=== PATIENT | male | born 1955 | race Caucasian/White ===

== ENCOUNTER 2016-12-14 06:05 | Inpatient (IN) | payer BC ==
[2016-11-16 11:34] VITALS: BMI 40.0
--- NOTE | 2016-11-16 12:20 | PAT Medication Instructions ---
Service Date Nov 16, 2016. Current Home Medication List Folic Acid (Folvite), 1 MG PO QAM Hydrocodone/Acetaminophen 10MG/325MG ([place] 10MG/325MG), 1 TAB PO TID PRN for Pain Methotrexate Sodium (Methotrexate), 8 TAB PO WK Olmesartan Medoxomil (Olmesartan Medoxomil), 1 TAB PO QAM Omeprazole (Omeprazole), 2 TAB PO QAM Prednisone (Prednisone), 5 MG PO TID Sitagliptin-Metformin Hcl (Janumet), 1 TAB PO BID Tramadol (Ultram), 1 TAB PO TID Medication Instructions For Your Scheduled Surgery - Hold the following medications 7 days prior to surgery: Methotrexate Sodium (Methotrexate), 8 TAB PO WK (please check with prescribing physician before stopping) - Hold the following medications 48 hours prior to surgery: Sitagliptin-Metformin Hcl (Janumet), 1 TAB PO BID - Hold the following medications the morning of surgery: Folic Acid (Folvite), 1 MG PO QAM Olmesartan Medoxomil (Olmesartan Medoxomil), 1 TAB PO QAM - Take the following medications the morning of surgery with a sip of water: Hydrocodone/Acetaminophen 10MG/325MG ([place] 10MG/325MG), 1 TAB PO TID PRN for Pain (if needed, up to 4 hours prior to surgery) Tramadol (Ultram), 1 TAB PO TID (if needed, up to 4 hours prior to surgery) Prednisone (Prednisone), 5 MG PO TID Omeprazole (Omeprazole), 2 TAB PO QAM - Take the following medications as scheduled the night before surgery: Prednisone (Prednisone), 5 MG PO TID Tramadol (Ultram), 1 TAB PO TID Hydrocodone/Acetaminophen 10MG/325MG ([place] 10MG/325MG), 1 TAB PO TID PRN for Pain *OTHERWISE NOTHING TO EAT OR DRINK AFTER MIDNIGHT* If you have any questions please call us at [phone] or [phone] or [phone]
--- NOTE | 2016-11-16 13:36 | DIAGNOSTIC IMAGING REPORT ---
CHEST 2 VIEWS ROUTINE CLINICAL HISTORY: Preoperative chest COMPARISON STUDY: No previous studies for comparison. FINDINGS: The cardiac and mediastinal contours are normal. There is no evidence of focal pulmonary consolidation. There is no evidence of failure. No pleural effusions are visualized.[ IMPRESSION: No active disease in the chest. Electronically signed by: Aditya Malone M.D. 11/16/2016 1:35 PM Dictated Date/Time: 11/16/2016 1:35 PM
--- NOTE | 2016-11-16 13:37 | DIAGNOSTIC IMAGING REPORT ---
CERVICAL SPINE 2 OR 3 VIEWS CLINICAL HISTORY: 61 years-old Male presenting with RA; lateral-neutral, flexion, extension. TECHNIQUE: Lateral views of the cervical spine in neutral, flexion, and extension positioning were obtained. COMPARISON: None. FINDINGS: On neutral positioning, normal cervical lordosis. Vertebral body heights are essentially preserved, although intervertebral disc space loss secondary to degenerative changes noted in the lower cervical region. Disc osteophyte complexes noted at nearly every level. No prevertebral soft tissue swelling. On flexion, normal straightening with slight reversal of lordosis in the lower cervical region. No increase in the predental interval. On extension positioning, no significant change in lordosis from flexion, suggesting rigidity. No subluxation. IMPRESSION: Multilevel degenerative changes without evidence of subluxation on flexion and extension positioning. Electronically signed by: Aravind Ruiz M.D. 11/16/2016 1:36 PM Dictated Date/Time: 11/16/2016 1:34 PM
[2016-11-16 13:47] LABS: BASO % 0.9 %; BASO ABS # 0.11 K/uL (0-0.2); COMPLETE YES; HEMATOCRIT 43.4 % (42-52); IG% 0.4 %; LYMPH % 9.6 %; LYMPH ABS # 1.18 K/uL (1.2-3.4); MEAN CELL VOLUME 97.7 fL (80-100); MEAN CORPUSCULAR HEMOGLOBIN 32.7 pg (25-34); MEAN CORPUSCULAR HGB CONC 33.4 g/dl (32-36); MEAN PLATELET VOLUME 10.5 fL (7.4-10.4); MONO % 5.1 %; PLATELET COUNT 180 K/uL (130-400); RED BLOOD COUNT 4.44 M/uL (4.7-6.1); WHITE BLOOD COUNT 12.23 K/uL (4.8-10.8)
[2016-11-16 13:48] LABS: URINE APPEARANCE CLEAR (CLEAR); URINE BILIRUBIN NEG (NEG); URINE COLOR YELLOW; URINE NITRITE NEG (NEG); URINE SPECIFIC GRAVITY 1.017 (1.000-1.030); UROBILINOGEN NEG (NEG)
[2016-11-16 13:49] LABS: MANUAL MICROSCOPIC REQUIRED? NO; REVIEW REQ? NO
[2016-11-16 13:59] LABS: PARTIAL THROMBOPLASTIN RATIO 0.9; PROTHROMBIN TIME (PATIENT) 10.7 SECONDS (9.0-12.0)
[2016-11-16 14:02] LABS: CALCIUM 9.3 mg/dl (8.5-10.1); CREATININE 0.92 mg/dl (0.60-1.40); POTASSIUM 4.4 mmol/L (3.5-5.1)
[2016-11-16 14:04] LABS: ALB/GLOB RATIO 1.3 (0.9-2)
[2016-11-16 14:22] LABS: ESTIMATED AVERAGE GLUCOSE 220 mg/dl; HA1C FLAG Normal (Normal)
--- NOTE | 2016-12-10 18:22 | History and Physical ---
History & Physical Date Dec 10, 2016. Chief Complaint left knee pain History of Present Illness The patient is a 61 year old male with complaints of left knee pain for about a year. Pt has had injections and PT with no relief and ready for left tka. Additional History Hepatic Disease: No Endocrine Disorder: No Kidney Disease: No Hypertension: No Heart Disease: No Bleeding Tendencies: No Infectious Diseases: No Allergies Coded Allergies: No Known Allergies (Unverified , 11/16/16) Home Medications Scheduled Folic Acid (Folvite), 1 MG PO QAM Methotrexate Sodium (Methotrexate), 8 TAB PO WK Olmesartan Medoxomil (Olmesartan Medoxomil), 1 TAB PO QAM Omeprazole (Omeprazole), 2 TAB PO QAM Prednisone (Prednisone), 5 MG PO TID Sitagliptin-Metformin Hcl (Janumet), 1 TAB PO BID Tramadol (Ultram), 1 TAB PO TID Scheduled PRN Hydrocodone/Acetaminophen 10MG/325MG ([place] 10MG/325MG), 1 TAB PO TID PRN for Pain Physical Examination Skin: warm/dry, no rash Eyes: normal inspection, EOMI, sclerae normal ENT: normal ENT inspection, pharynx normal Head: normocephalic, atraumatic Neck: supple, no adenopathy, trachea midline Respiratory/Chest: lungs clear, normal breath sounds, no respiratory distress Cardiovascular: regular rate, rhythm, no edema, no murmur Abdomen / GI: normal bowel sounds, non tender Back: normal inspection Extremities: normal inspection, normal range of motion, + pertinent finding ( left knee has painful rom and tender along medial joint line. rom poor. ) Neurologic/Psych: no motor/sensory deficits, alert, normal reflexes, oriented x 3 Diagnosis DJD LEFT KNEE Plan of Treatment PLAN IS ADMIT AND UNDERGO LEFT TKA, THEN HOME PT AND ASA FOR DVT PROPHYLAXIS.
[2016-12-11 10:48] VITALS: BMI 40.0
[~2016-12-14] VITALS: Ht 185.4 cm; Wt 137.3 kg
[2016-12-14] VITALS (7 sets, daily range): BP systolic 104–172; BP diastolic 64–97; PULSE 84–90; TEMP 36.4–36.8; O2SAT 94–97; Ht 185.4 cm; Wt 137.3 kg
[~2016-12-14 06:05] MED LIST: ACETAMINOPHEN 500 MG TAB PO SCH; CEFAZOLIN 3000 MG/65 ML D5W 65 ML IV SCH; CeleBREX 200 MG CAP PO SCH; DEXAMETHASONE 4 MG TAB PO SCH; FAMOTIDINE 20 MG TAB PO SCH; FOLI1TAB7 PO; HYDR-4079 PO; LACTATED RINGER'S 1000ML 1,000 ML IV SCH; LACTATED RINGER'S 500 ML IV SCH; METH2.5T PO; METOCLOPRAMIDE HCL 10 MG TAB PO SCH; OLME20TA26 PO; OMEP20TA PO; PRED-301 PO; ROPIVACAINE 5MG/ML 30 ML 150 MG, BUPIVACAINE/EPINEPHR 0.5% MPF 30 ML, KETOROLAC TROMETH... INFIL SCH; SITA50TA5 PO; TRAM-10 PO
[2016-12-14] MEDS: TRANEXAMIC ACID INJ 1,000 MG in SODIUM CHLORIDE 0.9% 100ML 100 ML IV SCH ×2 (06:30→09:00)
[2016-12-14] MEDS ORDERED: BUPIVACAINE 0.5 % 5 MG/1 ML PF 10ML VIAL ONE (06:33)
[2016-12-14] MEDS ORDERED: BUPIVACAINE 0.25% 30 ML VIAL ONE (06:33)
[2016-12-14] MEDS ORDERED: EpINEphrine INJ 1MG/ML AMP 1 MG/ML AMP ONE (06:34)
[2016-12-14] MEDS ORDERED: FENTANYL CITRATE INJ 50 MCG/1 ML 2 ML VIAL IV PRN (08:15)
[2016-12-14] MEDS ORDERED: ONDANSETRON INJ 2 MG/ML 2 ML VIAL IV PRN ×2 (08:15→10:45)
[2016-12-14] MEDS ORDERED: PROMETHAZINE HCL INJ 6.25 MG in SODIUM CHLORIDE 0.9% 50ML 50 ML IV PRN (08:15)
[2016-12-14] MEDS ORDERED: EpHEDrine SULFATE INJ 50 MG/ML AMP IV PRN (08:15)
[2016-12-14] MEDS ORDERED: ATROPINE SULFATE 0.1 MG/ML 5ML SYR IV PRN (08:15)
--- NOTE | 2016-12-14 08:35 | History & Physical Bridge Note ---
H&P Re-Evaluation Bridge Note: I have examined the patient, reviewed the History & Physical and in the interval since the performance of the History & Physical I have noted the following changes of clinical significance: THE ONLY CHANGE ON THE H AND P WAS THAT THIS IS THE RIGHT KNEE, NOT THE LEFT KNEE. CONSENT IS FOR RIGHT TKA WHICH WE WENT OVER AGAIN, OTHEWISE, No changes noted
[2016-12-14] MEDS ORDERED: LIDOCAINE HCL 2% 2 ML VIAL (20MG/ML) ONE (08:44)
[2016-12-14] MEDS ORDERED: FENTANYL CITRATE INJ 50 MCG/1 ML 2 ML VIAL ONE (08:44)
[2016-12-14] MEDS ORDERED: MIDAZOLAM HCL 1 MG/ML 2ML VIAL ONE ×2 (08:44→09:31)
[2016-12-14] MEDS ORDERED: PROPOFOL IV EMULSION 10 MG/ML 20 ML VIAL IV ONE ×2 (08:44→09:22)
[2016-12-14] MEDS ORDERED: POVIDONE-IODINE OP SOLN 30 ML BTL ONE (08:59)
[2016-12-14] MEDS ORDERED: BACITRACIN 50000 UNIT VIAL ONE (08:59)
[2016-12-14] MEDS ORDERED: ORTHO JOINT ANESTHETIC ONE (08:59)
[2016-12-14] MEDS ORDERED: KETAMINE HCL INJ 50 MG/ML 10 ML VIAL ONE (09:30)
[2016-12-14] MEDS ORDERED: SODIUM CHLORIDE 0.9% INJ 10 ML VIAL ONE (09:40)
[2016-12-14] MEDS ORDERED: BISACODYL 10 MG SUPP PR PRN (10:45)
[2016-12-14] MEDS ORDERED: SOD PHOSPHATE/SOD BIPHOSPHATE ENEMA 132 ML BTL PR PRN (10:45)
[2016-12-14] MEDS ORDERED: ALUMINUM/MAGNESIUM/SIMETH (MAALOX MAX) 30 ML UDC PO PRN (10:45)
[2016-12-14] MEDS ORDERED: ZOLPIDEM TARTRATE 5 MG TAB PO PRN (10:45)
--- NOTE | 2016-12-14 10:50 | [facility] Operative Report ---
Operative Report Operative Date Dec 14, 2016. Pre-Operative Diagnosis Right knee degenerative joint disease. Post-Operative Diagnosis same as preoperative diagnosis Procedure(s) Performed Right total knee arthroplasty Surgeon Dr. De La Torre Rn Medication Surgeon(s) Mariam Neal PA-C Estimated Blood Loss 20ML Findings As above Specimens A. Right knee bone and tissue Complication(s) None Disposition Recovery Room / PACU Description of Procedure IMPLANTS USED: INDICATIONS: [Mr. Isaac Ruffin ] is a pleasant (male) who has unfortunately failed all forms of conservative measures. Therefore, they have decided to undergo elective surgical intervention. All risks and benefits of the surgery were discussed with the patient and the family in entirety. PROCEDURE: The patient was brought to the operating room and properly identified by myself, anesthesia, and staff. Patient was given a spinal anesthesia and placed on the operating table in the supine position. Tourniquets were applied to the right upper thigh. The leg was then prepped and draped in usual sterile fashion. We made a standard midline approach over the patella and dissected down through the subcutaneous tissue to identify the capsule and performed a medial capsulotomy with the patella everted and the knee flexed.The patient matched implant was then put onto the femur. The femur measured to be a size 8. This was then put into place. We made the appropriate cuts and then placed a retractor behind the proximal tibia to retract anteriorly. We then placed the patient matched knee implant on the tibia. It measured to be a size 8. A size 8 guide was then put in place. We used the tibial punch then put the trial components into place. We had very good range of motion, excellent stability, and excellent patella tracking. We removed the trial components and irrigated the wound. We impacted the components in place using antibiotic cement. All excess cement was removed. We then irrigated the wound once more. We closed the capsule with 0 PDS suture , deep dermis and 2-0 Vicryl, and finally the skin with julio. A sterile dressing was applied. The patient was taken to the recovery room in stable condition. Due to the complex nature of the procedure, the entire surgery was performed with the operational assistance of [monica BABCOCK)]. The offset press assistant was under direct supervision, was involved in the actual performance of all aspects of the surgical procedure including hemostasis, tissue retraction and incision, instrument management, patient positioning, and wound closure. I attest to the content of the Intraoperative Record and any orders documented therein. Any exceptions are noted below.
--- NOTE | 2016-12-14 11:49 | Anesthesiology Progress Note ---
Anesthesia Post Op Note Date & Time Dec 14, 2016 at 11:49 Vital Signs Pain Intensity: 0 Vital Signs Past 12 Hours Date Time Temp Pulse Resp B/P (MAP) Pulse Ox O2 Delivery O2 Flow Rate FiO2 12/14/16 11:37 80 17 95 12/14/16 11:37 82 17 12/14/16 11:36 117/65 12/14/16 11:32 84 15 96 12/14/16 11:32 84 15 12/14/16 11:31 105/64 12/14/16 11:30 90 20 96 12/14/16 11:30 88 20 12/14/16 11:26 106/66 12/14/16 11:25 86 15 96 12/14/16 11:25 85 15 12/14/16 11:21 89/59 12/14/16 11:20 88 19 12/14/16 11:20 88 19 96 12/14/16 11:16 107/58 12/14/16 11:15 36.2 89 16 107/58 (83) 98 Nasal Cannula 2 12/14/16 11:15 89 17 12/14/16 11:15 89 17 98 12/14/16 06:30 36.8 89 20 122/69 95 Room Air Notes Mental Status: alert / awake / arousable, participated in evaluation Pt Amnestic to Procedure: Yes Nausea / Vomiting: adequately controlled Pain: adequately controlled Airway Patency, RR, SpO2: stable & adequate BP & HR: stable & adequate Hydration State: stable & adequate Neuraxial Anesthesia: was administered, sensory block is resolving Anesthetic Complications: no major complications apparent
[2016-12-14] MEDS: SODIUM CHLORIDE 0.9% 1000ML 1,000 ML IV SCH ×2 (13:09→21:34)
[2016-12-14] MEDS ORDERED: GLUCOSE 40% GEL 15 GM TUBE PO PRN (13:30)
[2016-12-14] MEDS ORDERED: GLUCOSE 10 TABS/TUBE PO PRN (13:30)
[2016-12-14] MEDS ORDERED: GLUCAGON FOR INJ 1 MG VIAL SQ PRN (13:30)
[2016-12-14] MEDS ORDERED: DEXTROSE 50% 50 ML SYR IV PRN (13:30)
[2016-12-14] MEDS ORDERED: PANTOprazole SOD 40 MG TAB PO ONE (14:15)
[2016-12-14] MEDS: ACETAMINOPHEN 500 MG TAB PO SCH ×2 (14:42→22:24)
--- NOTE | 2016-12-14 14:48 | Medical Consult ---
Consultation Date of Consultation: Dec 14, 2016. Attending Physician: Frantz De La Torre DO Reason for Consultation: Medical Management History of Present Illness Mr. Ruffin is a 61 y/o male with PMHx of Rheumatoid Arthritis on Methotrexate, HTN, T2DM, and GERD who is S/P R TKA on 12/14. Patient reports his Methotrexate has been on hold for a week prior to procedure and follows only with PCP currently for management. Was previously managed by wastewater operator. He Past Medical/Surgical History 1. Rheumatoid Arthritis 2. HTN 3. T2DM 4. GERD Family History Diabetes mellitus Hypertension Social History Smoking Status: Current Some Day Smoker Smokeless Tobacco Use: No Alcohol Use: socially Drug Use: none Marital Status: Housing Status: lives with significant other Allergies Coded Allergies: No Known Allergies (Unverified , 12/14/16) Current Inpatient Medications Current Inpatient Medications Medications (Trade) Dose Ordered Sig/Gissell Route Start Time Stop Time Status Last Admin Dose Admin Cefazolin Sodium 65 ml @ 100 mls/hr PREOP IV 12/14/16 06:00 12/14/16 18:00 12/14/16 09:15 100 MLS/HR Acetaminophen (Tylenol Tab) 1,000 mg PREOP PO 12/14/16 06:00 12/14/16 18:00 12/14/16 07:09 1,000 MG Celecoxib (CeleBREX CAP) 200 mg PREOP PO 12/14/16 06:00 12/14/16 18:00 12/14/16 07:08 200 MG Dexamethasone (Decadron Tab) 8 mg PREOP PO 12/14/16 06:00 12/14/16 18:00 12/14/16 07:08 8 MG Famotidine (Pepcid Tab) 20 mg PREOP PO 12/14/16 06:00 12/14/16 18:00 12/14/16 07:08 20 MG Metoclopramide HCl (Reglan Tab) 10 mg PREOP PO 12/14/16 06:00 12/14/16 18:00 12/14/16 07:09 10 MG Tranexamic Acid 1000 mg/Sodium Chloride 110 ml @ 660 mls/hr TODAY@06,0630 IV 12/14/16 06:00 12/14/16 18:00 12/14/16 09:00 660 MLS/HR Sodium Chloride 1,000 ml @ 100 mls/hr Q10H IV 12/14/16 10:42 12/15/16 10:41 12/14/16 13:09 100 MLS/HR Oxycodone HCl (Roxicodone Immediate Rel Tab) 1 TABLET FOR PAIN RATING... Q4H PRN PO 12/14/16 10:45 12/28/16 10:44 Acetaminophen (Tylenol Tab) 1,000 mg Q8H PO 12/14/16 15:00 01/13/17 14:59 Magnesium Hydroxide (Milk Of Magnesia Susp) 30 ml Q6H PRN PO 12/14/16 10:45 01/13/17 10:44 Bisacodyl (Dulcolax Supp) 10 mg DAILY PRN MO 12/14/16 10:45 01/13/17 10:44 Sodium Biphosphate/ Sodium Phosphate (Fleet Enema) 132 ml DAILY PRN MO 12/14/16 10:45 01/13/17 10:44 Docusate Sodium (coLACE CAP) 100 mg BID PO 12/14/16 21:00 01/13/17 20:59 Diphenhydramine HCl (Benadryl Cap) 25 mg Q8H PRN PO 12/14/16 10:45 01/13/17 10:44 Al Hydrox/Mg Hydrox/Simethicone (Maalox Max Susp) 15 ml Q4H PRN PO 12/14/16 10:45 01/13/17 10:44 Zolpidem Tartrate (Ambien Tab) 5 mg HSZ PRN PO 12/14/16 10:45 01/13/17 10:44 Ondansetron HCl (Zofran Inj) 4 mg Q6H PRN IV 12/14/16 10:45 01/13/17 10:44 Tranexamic Acid 1000 mg/Sodium Chloride 110 ml @ 660 mls/hr Q6H IV 12/14/16 17:00 12/14/16 17:09 Dexamethasone Sodium Phosphate 10 mg/Syringe 2.5 ml @ 1 mls/min TODAY@0730 IV 12/15/16 07:30 12/15/16 07:33 Aspirin (Ecotrin Tab) 81 mg BID PO 12/14/16 21:00 01/13/17 20:59 Folic Acid (Folvite Tab) 1 mg QAM PO 12/15/16 09:00 01/14/17 08:59 Metformin HCl (Glucophage Tab) 1,000 mg BIDM PO 12/14/16 17:45 01/13/17 17:44 Cefazolin Sodium 2000 mg/Dextrose 60 ml @ 100 mls/hr Q8H IV 12/14/16 17:00 12/15/16 01:35 Insulin Aspart (novoLOG ASPART) SLIDING SCALE If C... ACHS SC 12/14/16 17:15 01/13/17 17:14 Glucose (Glucose 40% Gel) 15-30 GRAMS 15 GRAMS... UD PRN PO 12/14/16 13:30 01/13/17 13:29 Glucose (Glucose Chew Tab) 4-8 Tablets 4 Tabl... UD PRN PO 12/14/16 13:30 01/13/17 13:29 Dextrose (Dextrose 50% 50ML Syringe) 25-50ML OF 50% DW IV FOR... UD PRN IV 12/14/16 13:30 01/13/17 13:29 Glucagon (Glucagon Inj) 1 mg UD PRN SQ 12/14/16 13:30 01/13/17 13:29 Miscellaneous Information (Order Awaiting Action) 1 ea QS N/A 12/14/16 16:00 01/13/17 15:59 Review of Systems Constitutional: No fever, No chills ENT: No nasal symptoms, No sore throat, No trouble swallowing Respiratory: No cough, No sputum, No shortness of breath Cardiovascular: No chest pain, No palpitations Abdomen: No pain, No nausea, No vomiting, No diarrhea, No constipation Musculoskeletal: No swelling, No calf pain Genitourinary - Male: No dysuria Hematologic / Lymphatic: No abnormal bleeding/bruising Integumentary: No rash Physical Exam Date Time Temp Pulse Resp B/P (MAP) Pulse Ox O2 Delivery O2 Flow Rate FiO2 12/14/16 14:15 36.5 89 18 172/97 (122) 97 Room Air 12/14/16 13:33 36.7 85 20 120/75 (90) 94 Room Air 12/14/16 12:45 36.7 84 20 137/87 (104) 97 Nasal Cannula 2.0 12/14/16 12:15 Nasal Cannula 2.0 12/14/16 12:15 96 Nasal Cannula 2.0 12/14/16 12:15 36.6 88 16 113/74 (87) 96 Nasal Cannula 2.0 12/14/16 11:48 90 22 12/14/16 11:48 91 22 97 12/14/16 11:46 121/67 12/14/16 11:45 37.1 90 20 121/67 96 Nasal Cannula 2 12/14/16 11:43 81 18 12/14/16 11:43 82 18 95 12/14/16 11:41 103/68 12/14/16 11:38 86 15 12/14/16 11:38 87 15 95 12/14/16 11:37 80 17 95 12/14/16 11:37 82 17 12/14/16 11:36 117/65 12/14/16 11:32 84 15 96 12/14/16 11:32 84 15 12/14/16 11:31 105/64 12/14/16 11:30 90 20 96 12/14/16 11:30 88 20 12/14/16 11:26 106/66 12/14/16 11:25 86 15 96 12/14/16 11:25 85 15 12/14/16 11:21 89/59 12/14/16 11:20 88 19 12/14/16 11:20 88 19 96 12/14/16 11:16 107/58 12/14/16 11:15 36.2 89 16 107/58 (83) 98 Nasal Cannula 2 12/14/16 11:15 89 17 12/14/16 11:15 89 17 98 12/14/16 06:30 36.8 89 20 122/69 95 Room Air General Appearance: WD/WN, no apparent distress, + obese Head: normocephalic, atraumatic Eyes: sclerae normal ENT: hearing grossly normal Neck: supple, no JVD, trachea midline Respiratory/Chest: lungs clear, normal breath sounds, no respiratory distress, no accessory muscle use Cardiovascular: regular rate, rhythm, no gallop, no murmur Abdomen/GI: normal bowel sounds, non tender, soft Extremities/Musculoskelatal: no calf tenderness, no pedal edema, + pertinent finding (RLE with EMILI wrap C/D/I - immediate cap refill: dorsalis pedis 2+) Neurologic/Psych: alert, oriented x 3 Laboratory Results Last 24 Hours Test 12/14/16 06:23 12/14/16 06:38 12/14/16 11:59 Hepatitis C Antibody Screen NEG Bedside Glucose 142 mg/dl 188 mg/dl Assessment & Plan Mr. Ruffin is a 61 y/o male with PMHx of Rheumatoid Arthritis on Methotrexate, HTN, T2DM, and GERD who is S/P R TKA on 12/14. S/p R TKA on 12/14: - Pain management, IVF, PT/OT, DVT prophylaxis per primary - DVT prophylaxis - ASA 81 mg BID Rheumatoid Arthritis: - Continue to hold Methotrexate and Prednisone - Received steroids with procedure - can be resumed likely tomorrow - Monitor for signs of infection given immunocompromised status due to Methotrexate HTN: - Hold Olmesartan 20 mg daily until renal function assessed - Coverage with Hydralazine PRN T2DM: Uncontrolled - A1c 9.3 - Hold Janumet until renal function assessed in AM - Cover with SSI with carb coverage - Given chronic steroid use and A1c patient will need medication adjustment and can be deferred to PCP GERD: - Omeprazole 40 mg daily - non-formulary and patient may take his own Disposition: Per primary - Recommend PCP F/U for reinstitution of methotrexate and medication adjustment for T2DM in setting of A1c 9.3 and chronic steroid use .Attending Addendum: I have physically seen this patient, have directed the physician assistants medical activities, and agree with the H&P as noted above with the following exceptions as noted. Assessment and Plan: Status post right total knee arthroplasty on 12/14-- Seen postoperatively is medically stable. Hypertension-- Hold olmesartan as noted. Hydralazine 10 mg IV every 4 hours when necessary systolic blood pressure greater than 160. Ex Diabetes mellitus-- Hold Janumet. Accu-Cheks before meals and at bedtime with NovoLog coverage per scale. Ex GERD-- Patient will continue to take is on omeprazole 40 mg daily. Rheumatoid arthritis-- Methotrexate and prednisone on hold. Monitor for adrenal insufficiency and signs of infection.
[2016-12-14] MEDS ORDERED: HydrALAZINE HCL 20 MG/ML VIAL IV. PRN (15:00)
[2016-12-14] MEDS ORDERED: TRANEXAMIC ACID INJ 1,000 MG in SODIUM CHLORIDE 0.9% 100ML 100 ML IV SCH (17:00)
[2016-12-14] MEDS ORDERED: CEFAZOLIN IV 2 MG in DEXTROSE 5% 50ML 50 ML IV SCH (17:00)
[2016-12-14] MEDS: INSULIN ASPART 100 UNITS/ML 3 ML PEN SC SCH ×2 (17:15→20:14)
[2016-12-14] MEDS ORDERED: METFORMIN HCL 500 MG TAB PO SCH (17:45)
[2016-12-14] MEDS ORDERED: SITAGLIPTIN 25 MG TAB PO SCH (17:45)
[2016-12-14] MEDS: CEFAZOLIN IV 2,000 MG in DEXTROSE 5% 50ML 50 ML IV SCH (18:25)
[2016-12-14] MEDS: OXYCODONE HCL IR 5 MG TAB (IMMEDIATE RELEASE) PO PRN ×2 (19:17→23:39)
[2016-12-14] MEDS: ASPIRIN 81 MG ECTAB PO SCH (21:33)
[2016-12-14] MEDS: DOCUSATE SODIUM 100 MG CAP PO SCH (21:33)
[2016-12-15] MEDS: INSULIN ASPART 100 UNITS/ML 3 ML PEN SC SCH ×6 (00:30→21:00)
[2016-12-15] MEDS: CEFAZOLIN IV 2,000 MG in DEXTROSE 5% 50ML 50 ML IV SCH (01:17)
[2016-12-15 04:08] VITALS: BP 121/76; PULSE 80; TEMP 36.3; O2SAT 97
[2016-12-15] MEDS: OXYCODONE HCL IR 5 MG TAB (IMMEDIATE RELEASE) PO PRN ×5 (05:59→23:32)
[2016-12-15] MEDS: SODIUM CHLORIDE 0.9% 1000ML 1,000 ML IV SCH (05:59)
[2016-12-15 06:09] LABS: HEMATOCRIT 37.4 % (42-52); MEAN CELL VOLUME 98.2 fL (80-100); MEAN CORPUSCULAR HEMOGLOBIN 33.9 pg (25-34); MEAN CORPUSCULAR HGB CONC 34.5 g/dl (32-36); MEAN PLATELET VOLUME 10.1 fL (7.4-10.4); PLATELET COUNT 172 K/uL (130-400); RED BLOOD COUNT 3.81 M/uL (4.7-6.1); WHITE BLOOD COUNT 13.04 K/uL (4.8-10.8)
[2016-12-15] MEDS: ACETAMINOPHEN 500 MG TAB PO SCH ×3 (06:28→21:14)
[2016-12-15 06:40] LABS: BUN/CREATININE RATIO 18.3 (10-20); POTASSIUM 4.3 mmol/L (3.5-5.1)
[2016-12-15] MEDS ORDERED: DEXAMETHASONE INJ 10 MG in SYRINGE 0 ML IV SCH (07:30)
[2016-12-15 07:47] VITALS: BP 145/97; PULSE 72; TEMP 36.4; O2SAT 96
--- NOTE | 2016-12-15 08:18 | Orthopedic Progress Note ---
Orthopedic Progress Note Date of Service Dec 15, 2016. Subjective Post OP Day: 1 Reports: feeling well, Denies: chest pain, SOB, nausea / vomiting, light headedness, calf pain Objective calves soft nontender, N/V intact, capillary refill less than 2 sec., dressing C /D/I, A&O x3, toes mobile Date Time Temp Pulse Resp B/P (MAP) Pulse Ox O2 Delivery O2 Flow Rate FiO2 12/15/16 07:47 36.4 72 16 145/97 (113) 96 Room Air 12/15/16 07:35 Room Air 12/15/16 04:08 36.3 80 16 121/76 (91) 97 Room Air 12/14/16 23:35 Room Air 12/14/16 23:01 36.7 85 16 111/69 (83) 96 Room Air 12/14/16 16:17 Room Air 12/14/16 15:11 36.4 90 19 104/64 (77) 96 Room Air 12/14/16 14:15 36.5 89 18 172/97 (122) 97 Room Air 12/14/16 13:33 36.7 85 20 120/75 (90) 94 Room Air 12/14/16 12:45 36.7 84 20 137/87 (104) 97 Nasal Cannula 2.0 12/14/16 12:15 Nasal Cannula 2.0 12/14/16 12:15 96 Nasal Cannula 2.0 12/14/16 12:15 36.6 88 16 113/74 (87) 96 Nasal Cannula 2.0 12/14/16 11:48 90 22 12/14/16 11:48 91 22 97 12/14/16 11:46 121/67 12/14/16 11:45 37.1 90 20 121/67 96 Nasal Cannula 2 12/14/16 11:43 81 18 12/14/16 11:43 82 18 95 12/14/16 11:41 103/68 12/14/16 11:38 86 15 12/14/16 11:38 87 15 95 12/14/16 11:37 80 17 95 12/14/16 11:37 82 17 12/14/16 11:36 117/65 12/14/16 11:32 84 15 96 12/14/16 11:32 84 15 12/14/16 11:31 105/64 12/14/16 11:30 90 20 96 12/14/16 11:30 88 20 12/14/16 11:26 106/66 12/14/16 11:25 86 15 96 12/14/16 11:25 85 15 12/14/16 11:21 89/59 12/14/16 11:20 88 19 12/14/16 11:20 88 19 96 12/14/16 11:16 107/58 12/14/16 11:15 36.2 89 16 107/58 (83) 98 Nasal Cannula 2 12/14/16 11:15 89 17 12/14/16 11:15 89 17 98 Laboratory Results 24 Hours: Test 12/15/16 05:48 Hematocrit 37.4 % Hemoglobin 12.9 g/dL Assessment & Plan Assessment: POD#1 SP RIGHT TKA DM RA Plan: PT/OT DVT PROPH- ASA 81MG BID PAIN MANAGEMENT MEDICAL MANAGEMENT DC PLANNING- PATIENT REQUESTING REFERRAL TO [facility]. WILL SEE IF THEY ACCEPT HIM. HOME PT IS PLAN B. STABLE FOR DISCHARGE TODAY IF ACCEPTED.
[2016-12-15] MEDS ORDERED: ASPEC81 PO (08:25)
[2016-12-15] MEDS ORDERED: ACET-24 PO (08:25)
[2016-12-15] MEDS ORDERED: ONDA8TAB6 PO (08:25)
[2016-12-15] MEDS: ASPIRIN 81 MG ECTAB PO SCH ×2 (08:25→20:47)
[2016-12-15] MEDS ORDERED: RXC5 PO (08:25)
[2016-12-15] MEDS: OMEPRAZOLE 40 MG CAP PO SCH (08:26)
[2016-12-15] MEDS: DOCUSATE SODIUM 100 MG CAP PO SCH ×2 (08:26→20:43)
[2016-12-15 11:38] VITALS: BP 139/85; PULSE 83; O2SAT 95
[2016-12-15 11:46] VITALS: BP 116/76; PULSE 77; TEMP 36.5; O2SAT 96
[2016-12-15] MEDS ORDERED: NURSING VERBAL MED ORDER ONE (12:00)
[2016-12-15] MEDS ORDERED: OXYCODONE HCL 10 MG TABCR (OXYCONTIN) PO ONE (12:05)
--- NOTE | 2016-12-15 15:09 | Discharge Instructions ---
Discharge Instructions Date of Service Dec 15, 2016. Admission Reason for Admission: Right Knee Osteoarthritis Discharge Discharge Diagnosis / Problem: Right Knee Osteoarthritis Discharge Goals Goal(s): Decrease discomfort, Improve function Activity Recommendations Activity Limitations: per Instructions/Follow-up section Weightbearing Status: Right weightbearing (as tolerated) . Instructions / Follow-Up Instructions / Follow-Up Dr. De La Torre Total Knee Replacement Discharge Instructions DERMABOND Prineo- This is a mesh tape dressing that is covered with glue. It should remain in place until the incision is properly healed, usually 10-14 days. This dressing is designed to naturally slough off. You may trim the excess mesh tape as it peels off. Incision may be briefly wet in a shower. Dry immediately by blotting with a clean, dry towel. Do not bath or swim until instructed by your doctor. Do not scratch, rub, or pick at the dressing. Do not apply any topical ointments or lotions until dressing is completely removed and/or instructed by your doctor. There may be a small piece of suture material at one end of your incision. Do not pull or trim this. If it is bothersome or catching on clothing, you may cover it with a band-aid. Quick showers, not Spa Time! After 7 days, please wipe wound with gauze and peroxide once daily. ICE and ELEVATE constantly. If a drain is in place, it is removed when less than 10cc for 2 consecutive 8 hr shifts. Please read the Do's and Don'ts sheet. This paper and the Do's and Don'ts are the most important. The rest of your paperwork from hospital is redundant and or confusing. This is the info I want you to take to heart. I typically give you 5 prescriptions. Some are Eprescribed to your pharmacy already. They are: 1. Oxycodone or some form of a narcotic pain pill. Please take. Most important. 2. Aspirin - this is for blood clot prevention, please take. You may have them prescribe something stronger than aspirin, if so, you won't have a script for aspirin daily. 3. Tylenol 4. Zofran-this is for nausea, take if you need. 5. Celebrex-helps with inflammation, if not covered by insurance, then use ibuprofen 600 mg, 2 to 3 times a day. If any problems or concerns, please call [facility] (Or Nadege Nadege if she is your coordinator) FIRST. DO not go to the ER unless directed by your [facility] Physician or it's an absolute emergency. Our phone numbers are located all throughout the your [employer] Yellow Pages packet. YOUR NEW KNEE: DOS AND DONTS This is an instruction sheet for you to follow once discharged after your new knee replacement. We tried our best to include all common questions and concerns following surgery. DO - Get up and walk several times daily. This is important for muscle recovery and also helps prevent blood clots. Walking is encouraged as long as the muscles are not becoming too sore. DO - Find a comfortable sleeping position. You may sleep on either side or your back. You do not need to place a pillow between your legs; however, some find this more comfortable. DO TAKE YOUR PAIN MEDS as Prescribed; If you are having pain but arent taking your pain pills, there isnt much more we can do for you! DO Use your walker/cane until you feel you can ambulate safely without it. This may take days or weeks, depending on your lifestyle. DO Wait until you are completely comfortable using your cane before driving a vehicle. You should be able to react quickly with your operative leg. If you had Right knee replacement you may want to wait a week or two. If you had Left knee replacement you may drive as soon as you feel comfortable. DO Elevate your operative leg several times daily. You should lay flat so your leg is HIGHER than your HEART with 3-4 pillows. This will significantly help with swelling. DO Apply ice to the knee for the first few weeks after returning home. Use ice on knee, calf, thigh, anywhere on your leg that is sore. After that, most people find moist heat to be more beneficial. DO Take a shower! You are permitted to shower after surgery. Use only mild soap and water when cleaning your incisions. Silverlon dressing is usually removed after 7 days, it is water resistant. If you have a BRADLEY dressing, please follow instruction sheet that was given to you in hospital. DO Participate in physical therapy. This can be done as an outpatient, or at home with home health services. Some people require a short inpatient stay at a rehab facility. During your hospital stay, a healthcare or medical will help determine which option is best for you. We usually recommend going to therapy 3 times per week for 3-6 weeks. Some people do require additional therapy depending on their individual needs. DO Continue your home exercises!! Make this a part of your daily routine. DO Wait a minimum of 3 months after your surgery for any invasive procedure ( mostly dental, bowel or bladder procedures). Antibiotics are no longer necessary before procedures however, if in doubt, check with your surgeon to be sure. DO Expect some bruising and swelling for the first few weeks. This is where heat and elevation are most important. In some cases, bruising may go all the way to your toes. Dont be alarmed, gravity will take it to the most dependent position. DO Watch for signs of infection near your incision. These include redness, increased swelling or pain, drainage or temperature greater than 101*F. If any of these occur, please call the office. You may also notice steri-strips covering your incision; these will fall off after a few days. DO Follow up with the Physician Route Jumper. This appointment is usually 2 weeks after surgery, and then at 6 weeks, your appointment will be with your Dr. Make a list of questions and concerns. DO READ this AGAIN! DONT Take a tub bath until your follow up appointment. Baths will increase your risk for infection, until your incision is fully healed. DONT Be alarmed if you have pain in your upper thigh area. This is most likely from the tourniquet we use during surgery. DONT Be afraid to take pain medications. Pain management is a very important part of your recovery. Initially, take pain medicines as prescribed by your Dr. In time you will need less medication to be comfortable. DONT Wait until you are out of medication to request a refill. Be sure to allow at least 24 hours for a new prescription. The new [place] law does not allow for us to call in narcotics of any type anymore. You will have to come to our office for a live prescription. You will not be able to get narcotic pills over the weekend. It is a good idea to check with the pharmacy before picking up your medication. DONT Get discouraged if you are not getting better fast enough. You will continue to see improvements for up to a year!! The office can be reached at [phone]. The answering service can be reached at [phone]. If you are experiencing an emergency go to the ER or call 911. We realize each patient is unique and has his/her own needs. It is our hope that this information is helpful to you and your family following your knee replacement surgery. If you have any questions, please call [facility] at or . Current Hospital Diet Patient's current hospital diet: Diabetes Type 2 Diet Discharge Diet Recommended Diet: Diabetes Type 2 Diet Procedures Procedures Performed: Right total knee arthroplasty Pending Studies Studies pending at discharge: no Laboratory Results Hemoglobin A1c Test 11/16/16 12:50 Range/Units Estimated Average Glucose 220 mg/dl Hemoglobin A1c 9.3 H 4.5-5.6 % Medical Emergencies . Who to Call and When: Medical Emergencies: If at any time you feel your situation is an emergency, please call 911 immediately. . Non-Emergent Contact Non-Emergency issues call your: Surgeon Call Non-Emergent contact if: temperature is above 101.5, your pain is not controlled, your pain is worsening, wound has increased drainage, wound has increased redness . "Provider Documentation" section prepared by Shaun Lund. . VTE Core Measure Inpt VTE Proph given/why not?: Aubrey Ta, [facility] [place] Drug Monitoring Program Search Results: patient reviewed within database, see additional documentation Drug Monitoring Findings: Pt receiving 30 rx of Essie type narcotics from practitioner in [place] Post op narcotics will be given but patient will need to follow up to restart his contract with that practitioner.
[2016-12-15 15:58] VITALS: BP 131/88; PULSE 76; TEMP 36.5; O2SAT 96
--- NOTE | 2016-12-15 20:08 | Hospitalist Progress Note ---
Hospitalist Progress Note Date of Service Dec 15, 2016. Subjective Pt evaluation today including: conversation w/ patient, conversation w/ family Pt feeling well, no problems. Is getting up and ambulating without any difficulties. No CP/SOB, no ELLIOTT, is bety po. Concerned about his elevated glucose readings. All Other Systems: Reviewed and Negative Objective Vital Signs Date Time Temp Pulse Resp B/P (MAP) Pulse Ox O2 Delivery O2 Flow Rate FiO2 12/15/16 16:00 Room Air 12/15/16 15:58 36.5 76 19 131/88 (102) 96 Room Air 12/15/16 11:46 36.5 77 16 116/76 (89) 96 Room Air 12/15/16 11:38 83 95 12/15/16 07:47 36.4 72 16 145/97 (113) 96 Room Air 12/15/16 07:35 Room Air 12/15/16 04:08 36.3 80 16 121/76 (91) 97 Room Air 12/14/16 23:35 Room Air 12/14/16 23:01 36.7 85 16 111/69 (83) 96 Room Air Physical Exam General Appearance: WD/WN, no apparent distress Eyes: normal inspection, sclerae normal ENT: hearing grossly normal Neck: trachea midline Respiratory/Chest: lungs clear, normal breath sounds, no respiratory distress, no accessory muscle use Cardiovascular: regular rate, rhythm, no edema, no gallop, no murmur Abdomen: normal bowel sounds, non tender, soft Extremities: no pedal edema, no calf tenderness, + pertinent finding (right knee in EMILI wrap) Neurologic/Psychiatric: alert, normal mood/affect Skin: normal color (with facial flushing), warm/dry, no rash Laboratory Results Last 24 Hours Test 12/14/16 20:10 12/15/16 00:00 12/15/16 04:05 12/15/16 05:48 Bedside Glucose 261 mg/dl 181 mg/dl 173 mg/dl White Blood Count 13.04 K/uL Red Blood Count 3.81 M/uL Hemoglobin 12.9 g/dL Hematocrit 37.4 % Mean Corpuscular Volume 98.2 fL Mean Corpuscular Hemoglobin 33.9 pg Mean Corpuscular Hemoglobin Concent 34.5 g/dl RDW Standard Deviation 46.3 fL RDW Coefficient of Variation 13.0 % Platelet Count 172 K/uL Mean Platelet Volume 10.1 fL Sodium Level 139 mmol/L Potassium Level 4.3 mmol/L Chloride Level 106 mmol/L Carbon Dioxide Level 25 mmol/L Anion Gap 8.0 mmol/L Blood Urea Nitrogen 18 mg/dl Creatinine 1.00 mg/dl Est Creatinine Clear Calc Drug Dose 112.8 ml/min Estimated GFR () 93.7 Estimated GFR (Non- 80.9 BUN/Creatinine Ratio 18.3 Random Glucose 156 mg/dl Calcium Level 9.0 mg/dl Test 12/15/16 07:55 12/15/16 11:51 12/15/16 16:14 12/15/16 17:39 Bedside Glucose 151 mg/dl 203 mg/dl 236 mg/dl 208 mg/dl Assessment and Plan Mr. Ruffin is a 61 y/o male with PMHx of Rheumatoid Arthritis on Methotrexate, HTN, T2DM, and GERD who is S/P R TKA on 12/14. S/p R TKA on 12/14: - Pain management, PT/OT, DVT prophylaxis per primary - DVT prophylaxis - ASA 81 mg BID x 4 weeks -plan for [facility] rehab vs SNF tomorrow Rheumatoid Arthritis: - Continue to hold Methotrexate till next week, can restart Prednisone 5mg po tid today as had last dose Dexamethasone this AM and should not go without steroids given chronic use - Monitor for signs of infection given immunocompromised status due to Methotrexate HTN: BPs slightly elevated now - restart Olmesartan 20 mg daily tomorrow - Coverage with Hydralazine PRN T2DM: Uncontrolled - A1c 9.3, with hyperglycemia here secondary to IV steroids - restart Januvia and metformin this evening - Cover with SSI with carb coverage - Given chronic steroid use and high A1c, patient will need medication adjustment and can be deferred to PCP-would recommend GLP-1 as would help with weight loss as well GERD: stable - Omeprazole 40 mg daily Disposition: to rehab vs SNF tomorrow - Recommend PCP F/U for reinstitution of methotrexate and medication adjustment for T2DM in setting of A1c 9.3 and chronic steroid use
[2016-12-15] MEDS: METFORMIN HCL 500 MG TAB PO SCH (20:42)
[2016-12-15] MEDS: SITAGLIPTIN 25 MG TAB PO SCH (20:43)
[2016-12-15] MEDS: OXYCODONE HCL 10 MG TABCR (OXYCONTIN) PO SCH (20:47)
[2016-12-15 23:11] VITALS: BP 118/63; PULSE 61; TEMP 36.5; O2SAT 97
[2016-12-15] MEDS: MAGNESIUM HYDROXIDE SUSP 30 ML UDC PO PRN (23:30)
[2016-12-16] MEDS: OXYCODONE HCL IR 5 MG TAB (IMMEDIATE RELEASE) PO PRN ×5 (04:49→23:20)
[2016-12-16] MEDS: ACETAMINOPHEN 500 MG TAB PO SCH ×3 (06:26→22:28)
[2016-12-16 07:10] VITALS: BP 152/98; PULSE 79; TEMP 36.3; O2SAT 95
[2016-12-16] MEDS: MAGNESIUM HYDROXIDE SUSP 30 ML UDC PO PRN (07:57)
--- NOTE | 2016-12-16 08:16 | Orthopedic Progress Note ---
Orthopedic Progress Note Date of Service Dec 16, 2016. Subjective Post OP Day: 2 Reports: feeling well, Denies: chest pain, SOB, nausea / vomiting, light headedness, calf pain Objective calves soft nontender, N/V intact, capillary refill less than 2 sec., incision C /D/I, A&O x3, toes mobile MODERATE ECCHYMOSIS THROUGHOUT THE RLE. MODERATE EDEMA. Date Time Temp Pulse Resp B/P (MAP) Pulse Ox O2 Delivery O2 Flow Rate FiO2 12/16/16 07:10 36.3 79 16 152/98 (116) 95 Room Air 12/15/16 23:30 Room Air 12/15/16 23:11 36.5 61 16 118/63 (81) 97 Room Air 12/15/16 16:00 Room Air 12/15/16 15:58 36.5 76 19 131/88 (102) 96 Room Air 12/15/16 11:46 36.5 77 16 116/76 (89) 96 Room Air 12/15/16 11:38 83 95 Assessment & Plan Assessment: POD#2 SP RIGHT TKA DM RA Plan: PT/OT DVT PROPH- ASA 81MG BID PAIN MANAGEMENT MEDICAL MANAGEMENT DC PLANNING- PATIENT REQUESTING REFERRAL TO [facility]. WILL SEE IF THEY ACCEPT HIM. PATIENT IS ACCEPTED AT [facility] BACK UP PLAN. I ENCOURAGED THE PATIENT TO CONSIDER DISCHARGE WITH HOME PT TODAY. HE IS ADAMANT ABOUT NOT RETURNING HOME. PATIENT IS STABLE FOR DISCHARGE TODAY.
--- NOTE | 2016-12-16 08:18 | Discharge Instructions ---
Discharge Instructions Date of Service Dec 16, 2016. Admission Reason for Admission: Right Knee Osteoarthritis Discharge Discharge Diagnosis / Problem: SP RIGHT TKA Discharge Goals Goal(s): Decrease discomfort, Improve function, Increase independence Activity Recommendations Activity Level: Up Ad Fabby Therapies: Physical Therapy, Weight Bearing Status (WBAT WITH WALKER), Occupational Therapy Weightbearing Status: Right weightbearing (as tolerated) . Additional Information Patient informed of condition: Yes Advance Directives: Yes DNR: No Level of Care: Acute Rehab Communicable Disease: No Prognosis: Improving Instructions / Follow-Up Instructions / Follow-Up ACTIVITY RECOMMENDATIONS: SELF CARE INSTRUCTIONS AFTER TOTAL KNEE REPLACEMENT A. You may need to continue a physical therapy program after discharge from the hospital. There are several options available to you. Your doctor will assist you in selecting the best one for you. 1. An out-patient facility 2 to 3 times a week for therapy or home therapy. 2. Continue working on all exercises taught to you in the hospital. Your goals should be to increase bending of your knee to 90 degrees and beyond and to fully straighten your knee. B. You may progress at your own pace from walking with a walker or crutches to a cane; then to no assistive devices. C. Make walking a part of your daily routine. Be up as much as comfortable with rest periods throughout the day. Rest with leg elevation is very important. Use the ice wrap frequently for the first 3-4 weeks. D. There are no restrictions on activities. You may ride in a car, shop, participate in balance wheel motion inspector and all social activities. E. Wear the long elastic stockings (RODRIGUEZ hose) 20 hours a day for 2 weeks after surgery. They can be removed several times a day for laundering and for a bath. F. You may shower, no tub baths until cleared by your doctor. SPECIAL CARE INSTRUCTIONS: VERY IMPORTANT TO READ AND REVIEW A. There are a few signs you need to watch for after you are home. Call [facility] if you notice any of the followin. Increased severe knee pain. Some pain is expected especially when you exercise. 2. Increased swelling in your leg or knee; pain or swelling of the calf muscle in either lower leg. 3. Any fluid drainage from the incision. 4. Shortness of breath or chest pain. B. Please call [facility] at if you have any concerns or questions about your operation or recovery. The doctor or his nurse will return your call promptly. C. You must take antibiotics before dental work, bladder, bowel or other surgery. Your doctor will provide you with a permanent care to carry describing this precaution. IMPORTANT: * REMEMBER TO TAKE ASPIRIN, 81 MG, TWICE DAILY FOR 4 WEEKS UNLESS OTHERWISE DIRECTED. THIS IS YOUR BLOOD THINNER. * HIGH RISK PATIENTS MAY BE PRESCRIBED A STRONGER BLOOD THINNER. THIS WILL BE PROVIDED AT DISCHARGE. * CALL IF INCREASED PAIN, REDNESS, DRAINAGE OR FEVER GREATER THAT 101. * WEAR RODRIGUEZ HOSE 20 HOURS PER DAY FOR 2 WEEKS. DERMABOND Prineo- This is a mesh tape dressing that is covered with glue. It should remain in place until the incision is properly healed, usually 10-14 days. This dressing is designed to naturally slough off. You may trim the excess mesh tape as it peels off. Incision may be briefly wet in a shower. Dry immediately by blotting with a clean, dry towel. Do not bath or swim until instructed by your doctor. Do not scratch, rub, or pick at the dressing. Do not apply any topical ointments or lotions until dressing is completely removed and/or instructed by your doctor. There may be a small piece of suture material at one end of your incision. Do not pull or trim this. If it is bothersome or catching on clothing, you may cover it with a band-aid. FOLLOW UP VISIT: If appointment is not already scheduled: Please call [facility] to make a follow-up appointment for 2 weeks after your surgery at . Current Hospital Diet Patient's current hospital diet: Diabetes Type 2 Diet Discharge Diet Recommended Diet: Regular Diet Procedures Procedures Performed: Right total knee arthroplasty Pending Studies Studies pending at discharge: no Laboratory Results Hemoglobin A1c Test 11/16/16 12:50 Range/Units Estimated Average Glucose 220 mg/dl Hemoglobin A1c 9.3 H 4.5-5.6 % Medical Emergencies . Who to Call and When: Medical Emergencies: If at any time you feel your situation is an emergency, please call 911 immediately. . Non-Emergent Contact Non-Emergency issues call your: Surgeon . . "Provider Documentation" section prepared by Mariam Neal. . Core Measure Problem Core Measures: None [place] Drug Monitoring Program Search Results: patient reviewed within database, no issues identified
[2016-12-16] MEDS ORDERED: OXYSR10 PO (08:20)
[2016-12-16] MEDS: METFORMIN HCL 500 MG TAB PO SCH ×2 (09:00→21:00)
[2016-12-16] MEDS: SITAGLIPTIN 25 MG TAB PO SCH ×2 (09:00→21:00)
[2016-12-16] MEDS: OMEPRAZOLE 40 MG CAP PO SCH (09:10)
[2016-12-16] MEDS: OLMESARTAN MEDOXOMIL 20 MG TAB PO SCH (09:10)
[2016-12-16] MEDS: OXYCODONE HCL 10 MG TABCR (OXYCONTIN) PO SCH ×2 (09:10→21:10)
[2016-12-16] MEDS: DOCUSATE SODIUM 100 MG CAP PO SCH ×2 (09:10→21:10)
[2016-12-16] MEDS: ASPIRIN 81 MG ECTAB PO SCH ×2 (09:10→21:10)
[2016-12-16] MEDS: INSULIN ASPART 100 UNITS/ML 3 ML PEN SC SCH ×4 (09:17→21:00)
[2016-12-16 10:01] VITALS: BP 124/78
--- NOTE | 2016-12-16 11:07 | Hospitalist Progress Note ---
Hospitalist Progress Note Date of Service Dec 16, 2016. Subjective Pt evaluation today including: conversation w/ patient, conversation w/ family Pt feeling well, just soreness in the knee. Denies CP/SOB, not lightheaded, is bety po, no N/V All Other Systems: Reviewed and Negative Objective Vital Signs Date Time Temp Pulse Resp B/P (MAP) Pulse Ox O2 Delivery O2 Flow Rate FiO2 12/16/16 07:50 Room Air 12/16/16 07:10 36.3 79 16 152/98 (116) 95 Room Air 12/15/16 23:30 Room Air 12/15/16 23:11 36.5 61 16 118/63 (81) 97 Room Air 12/15/16 16:00 Room Air 12/15/16 15:58 36.5 76 19 131/88 (102) 96 Room Air 12/15/16 11:46 36.5 77 16 116/76 (89) 96 Room Air 12/15/16 11:38 83 95 Physical Exam General Appearance: WD/WN, no apparent distress, + obese Eyes: normal inspection, sclerae normal ENT: hearing grossly normal Neck: trachea midline Respiratory/Chest: lungs clear, normal breath sounds, no respiratory distress, no accessory muscle use Cardiovascular: regular rate, rhythm, no gallop, no murmur Abdomen: normal bowel sounds, non tender, soft Extremities: + swelling (right leg with 2+ pitting edema dn moderate diffuse ecchymosis, incision with steri strips intact and no surrounding erythema or drainage; left leg no edema, no calf tenderness) Neurologic/Psychiatric: alert, normal mood/affect, oriented x 3 Skin: warm/dry Laboratory Results Last 24 Hours Test 12/15/16 11:51 12/15/16 16:14 12/15/16 17:39 12/15/16 21:10 Bedside Glucose 203 mg/dl 236 mg/dl 208 mg/dl 202 mg/dl Test 12/16/16 08:19 Bedside Glucose 153 mg/dl Assessment and Plan Mr. Ruffin is a 61 y/o male with PMHx of Rheumatoid Arthritis on Methotrexate, HTN, T2DM, and GERD who is S/P R TKA on 12/14. S/p R TKA on 12/14: doing very well post-op - Pain management, PT/OT, DVT prophylaxis per primary - DVT prophylaxis - ASA 81 mg BID x 4 weeks -plan for [facility] rehab vs SNF today depending o insurance approval Rheumatoid Arthritis: stable - Continue to hold Methotrexate till next week, restarted Prednisone 5mg po tid after he had last dose Dexamethasone - Monitor for signs of infection given immunocompromised status due to Methotrexate -continue outpt f/u HTN: BPs controlled - continue Olmesartan 20 mg daily - Coverage with Hydralazine PRN T2DM: Uncontrolled - A1c 9.3, with hyperglycemia here secondary to IV steroids, now improving - continue Januvia and metformin here and restart home Janumet on dc - Cover with SSI with carb coverage while here - Given chronic steroid use and high A1c, patient will need medication adjustment and can be deferred to PCP-would recommend GLP-1 (+/- Lantus) as would help with weight loss as well GERD: stable - Omeprazole 40 mg daily Disposition: to rehab vs SNF today - Recommend PCP F/U for reinstitution of methotrexate and medication adjustment for T2DM in setting of A1c 9.3 and chronic steroid use
[2016-12-16 16:49] VITALS: BP 120/72; PULSE 81; TEMP 36.7; O2SAT 97
[2016-12-16 23:14] VITALS: BP 115/72; PULSE 84; TEMP 36.8; O2SAT 95
[2016-12-17] MEDS: OXYCODONE HCL IR 5 MG TAB (IMMEDIATE RELEASE) PO PRN ×2 (05:24→09:44)
[2016-12-17] MEDS: ACETAMINOPHEN 500 MG TAB PO SCH (06:24)
[2016-12-17 07:05] VITALS: BP 115/72; PULSE 84; TEMP 36.8; O2SAT 95
[2016-12-17 07:40] VITALS: BP 126/83; PULSE 85; TEMP 36.8; O2SAT 98
--- NOTE | 2016-12-17 08:13 | DISCHARGE SUMMARY ---
DISCHARGE DIAGNOSIS: Degenerative joint disease, right knee. SECONDARY DIAGNOSIS: None. CONSULTS: None. COMPLICATIONS: None. PROCEDURE: The patient underwent a right total knee arthroplasty with Dr. De La Torre 12/14/2016. BRIEF HISTORY: Please see previously dictated history and physical. HOSPITAL SUMMARY: The patient was admitted on the above day for the above procedure. Procedure went without complication. Postop day 1, the patient was feeling well without complaints. He denied chest pain or shortness of breath. Vital signs were stable. He was afebrile. Dressing was clean, dry and intact. He was neurovascularly intact. Calves were soft and nontender. Hemoglobin was 12.9. The patient began physical therapy per protocol. He is requesting referral to [facility]. Postop day 2, the patient continued to improve. He denied chest pain or shortness of breath. Vital signs were stable. He was afebrile. Incision was clean, dry and intact. He was neurovascularly intact. Calves were soft and nontender. He had moderate swelling to the lower extremity with moderate ecchymosis. The patient continued to progress with physical therapy. He was not yet accepted at [facility]. Postop day 3, the patient was improving. He denied chest pain or shortness of breath. Vital signs were stable. He was afebrile. Incision was clean, dry and intact. He was neurovascularly intact. Calves were soft and nontender. The patient continued to progress with physical therapy. He was transferred to [facility] later that day in stable condition. For further review please see the chart. Lab, x-ray data and discharge instructions as per chart.
[2016-12-17] MEDS: OLMESARTAN MEDOXOMIL 20 MG TAB PO SCH (08:35)
[2016-12-17] MEDS: ASPIRIN 81 MG ECTAB PO SCH (08:35)
[2016-12-17] MEDS: DOCUSATE SODIUM 100 MG CAP PO SCH (08:35)
[2016-12-17] MEDS: SITAGLIPTIN 25 MG TAB PO SCH (08:36)
[2016-12-17] MEDS: METFORMIN HCL 500 MG TAB PO SCH (08:36)
[2016-12-17] MEDS: OMEPRAZOLE 40 MG CAP PO SCH (08:37)
[2016-12-17] MEDS: INSULIN ASPART 100 UNITS/ML 3 ML PEN SC SCH (08:41)
[2016-12-17] MEDS: OXYCODONE HCL 10 MG TABCR (OXYCONTIN) PO SCH (08:42)
== END 2016-12-17 10:15 | DRG 470 ==
LOC: C.ACU 06:05 → C.3E 10:47 → ENRESERV 11:33
PROVIDERS: ADMIT Orthopaedic Surgery; ATTEND Orthopaedic Surgery
PROC: 0SRC0J9 Replacement of Right Knee Joint with Synthetic Substitute, Cemented, Open Approach (ICD-10-PCS; principal; 2016-12-14 09:15)
DX: M17.11 Unilateral primary osteoarthritis, right knee (principal); I10 Essential (primary) hypertension; E11.9 Type 2 diabetes mellitus without complications; K21.9 Gastro-esophageal reflux disease without esophagitis; M06.9 Rheumatoid arthritis, unspecified; Z79.52 Long term (current) use of systemic steroids; Z79.899 Other long term (current) drug therapy; F17.200 Nicotine dependence, unspecified, uncomplicated

== ENCOUNTER 2017-10-25 15:59 | Inpatient (IN) | payer OTHER, BC ==
[~2017-10-25] VITALS: Ht 188 cm; Wt 136.5 kg
[~2017-10-25 15:59] MED LIST changes: -ACET-1256 PO; -CLB/200 PO; -DESO0.258 TOP; -HYDR-5688 PO; -METH2.5T PO; -OMEP-334 PO; -OXYC-643 PO; -SITA1TAB21 PO
[2017-10-25] MEDS ORDERED: SODIUM CHLORIDE 0.9% 1000ML 1,000 ML IV STA (18:19)
[2017-10-25] MEDS ORDERED: OPTIRAY 320 IV PRN (18:30)
[2017-10-25 18:48] LABS: BASO % 0.5 %; BASO ABS # 0.04 K/uL (0-0.2); EOS % 3.8 %; EOS ABS # 0.31 K/uL (0-0.5); HEMATOCRIT 43.5 % (42-52); HEMOGLOBIN 14.7 g/dL (14.0-18.0); IG# 0.03 K/uL (0.00-0.02); LYMPH % 19.6 %; LYMPH ABS # 1.61 K/uL (1.2-3.4); MEAN CELL VOLUME 96.9 fL (80-100); MEAN CORPUSCULAR HEMOGLOBIN 32.7 pg (25-34); MEAN CORPUSCULAR HGB CONC 33.8 g/dl (32-36); MEAN PLATELET VOLUME 10.7 fL (7.4-10.4); MONO % 6.5 %; MONO ABS # 0.53 K/uL (0.11-0.59); NEUT % 69.2 %; NEUT ABS # 5.68 K/uL (1.4-6.5); PLATELET COUNT 168 K/uL (130-400); RED CELL DISTRIBUTION WIDTH CV 13.7 % (11.5-14.5); RED CELL DISTRIBUTION WIDTH SD 46.7 fL (36.4-46.3)
[2017-10-25 18:56] LABS: ISTAT CREATININE 1.2 mg/dl (0.6-1.3); ISTAT IONIZED CALCIUM 1.2 mmol/l (1.12-1.32); ISTAT POTASSIUM 4.6 mEq/L (3.3-5.0)
--- NOTE | 2017-10-25 18:59 | DIAGNOSTIC IMAGING REPORT ---
CHEST ONE VIEW PORTABLE CLINICAL HISTORY: 62 years-old Male presenting with EVALUATE RESPIRATORY DISTRESS.DYSPNEA. TECHNIQUE: Portable upright AP view of the chest was obtained. COMPARISON: 11/16/2016. FINDINGS: Cardiomediastinal silhouette normal. Prominence of the bilateral aaron, possibly vascular in etiology. Prominent lung markings bilaterally. No focal opacity. No large effusion or pneumothorax. Degenerative changes of the spine suggested. IMPRESSION: 1. Prominence of the bilateral aaron, possibly vascular in etiology though underlying lymphadenopathy is not excluded. This may represent volume overload. This could be followed to resolution. Electronically signed by: Aravind Ruiz M.D. 10/25/2017 6:58 PM Dictated Date/Time: 10/25/2017 6:56 PM
[2017-10-25 19:16] LABS: ALBUMIN 3.9 gm/dl (3.4-5.0); ALKALINE PHOSPHATASE 70 U/L (45-117); ALT/SGPT 30 U/L (12-78); AST/SGOT 16 U/L (15-37); BLOOD UREA NITROGEN 22 mg/dl (7-18); CALCIUM 9.1 mg/dl (8.5-10.1); CARBON DIOXIDE 26 mmol/L (21-32); CREATININE 1.33 mg/dl (0.60-1.40); GLUCOSE 287 mg/dl (70-99); POTASSIUM 4.5 mmol/L (3.5-5.1); SODIUM 135 mmol/L (136-145); TOTAL PROTEIN 7.4 gm/dl (6.4-8.2)
--- NOTE | 2017-10-25 19:42 | DIAGNOSTIC IMAGING REPORT ---
(CHEST FOR PE) ANGIO WITH CLINICAL HISTORY: 62 years-old Male presenting with ^EVALUATE FOR PE ^RESPIRATORY DISTRESS.DYSPNEA, deep venous thrombosis in the right leg. TECHNIQUE: Multidetector CT angiography of the chest was performed after administration of intravenous contrast. 3-D volumetric and/or maximum intensity projection (MIP) images were subsequently reconstructed for review. IV contrast: 115 mL of Optiray 320. A dose lowering technique was used consistent with the principles of ALARA (as low as reasonably achievable). COMPARISON: Chest x-ray performed earlier today and right lower extremity venous Doppler from earlier today. CT DOSE (mGy.cm): The estimated cumulative dose is 774.78 mGy.cm. FINDINGS: Web Site Developer topogram: Unremarkable. Pulmonary vasculature: The study is suboptimal for the assessment of the pulmonary vascular tree secondary to timing of the contrast bolus. Extensive bilateral pulmonary emboli including a saddle pulmonary embolus involving the origins of the right and left main pulmonary arteries. Extensive lobar, segmental, and subsegmental pulmonary emboli involving primarily the lower lobes though all 5 lobes are affected to varying degrees. Main pulmonary artery is top normal in size. No flattening of the interventricular septum. No intracardiac filling defect. No reflux of contrast into the hepatic veins. Remaining chest: On soft tissue windows, normal thyroid and thoracic inlet. No axillary, supraclavicular, hilar, or mediastinal lymphadenopathy. Normal aorta. Normal heart size. Coronary artery calcification. No pericardial or pleural effusion. Upper abdomen normal. On lung windows, Mosaic attenuation in the lungs. Minimal linear opacities scattered throughout the lungs, likely atelectasis or scarring. Trace emphysema suggested. No solid peripheral consolidation. Airways patent. On bone windows, degenerative changes of the spine. IMPRESSION: 1. Extensive bilateral acute pulmonary emboli including a saddle pulmonary embolus involving the origins of the right and left main pulmonary arteries. No CT evidence of right heart strain or pulmonary infarcts at this time. The report will be called/faxed according to standard departmental protocol. Electronically signed by: Aravind Ruiz M.D. 10/25/2017 7:40 PM Dictated Date/Time: 10/25/2017 7:35 PM
[2017-10-25] MEDS ORDERED: DESO0.258 TOP (19:43)
[2017-10-25] MEDS ORDERED: METH2.5T PO (19:43)
[2017-10-25] MEDS ORDERED: SITA1TAB21 PO (19:43)
[2017-10-25] MEDS ORDERED: OXYC-643 PO (19:43)
[2017-10-25] MEDS ORDERED: HYDR-5688 PO (19:43)
[2017-10-25] MEDS ORDERED: ACET-1256 PO (19:43)
[2017-10-25] MEDS ORDERED: OMEP-334 PO (19:43)
[2017-10-25] MEDS ORDERED: CLB/200 PO (19:43)
[2017-10-25] MEDS ORDERED: HEPARIN 25000 UNIT/500 ML D5W ONE (20:04)
[2017-10-25] MEDS ORDERED: HEPARIN SOD 5000 UNIT/0.5 ML CARP ONE (20:04)
--- NOTE | 2017-10-25 20:40 | Critical Care Consultation ---
Critical Care Consultation Date of Consultation: Oct 25, 2017. Attending Physician: Reason for Consultation: 62-year-old male with extensive bilateral pulmonary emboli with saddle component placed on heparin drip in the emergency department requiring close monitoring for hemodynamic stability and possible decompensation given above- mentioned presentation. History of Present Illness Patient is a 62-year-old male with a significant past medical history of hypertension, osteoarthritis, diabetes mellitus, and rheumatoid arthritis who underwent surgical repair of his RIGHT Achilles tendon rupture on 09/15/2017. Since that time, the patient has been in a walking boot. Until recently, the patient had been minimal weightbearing while using crutches. He has noticed increasing swelling to the RIGHT lower extremity over the past several days. Today, while at an appointment with his surgeon, he was noted to have increasing swelling to the calf. He was subsequently directed to the hospital for outpatient ultrasound. Patient was found to have extensive DVT encompassing the RIGHT lower extremity. He was then directed to the emergency department for further evaluation. On presentation in the emergency department, the patient was found to be slightly tachycardic with a heart rate of 105. Blood pressure was 101/62. Respiratory rate was 18 with a pulse oximetry reading of 96% on room air. Laboratory results demonstrated no acute leukocytosis, worrisome anemia, or bandemia. The patient had no significant electrolyte abnormalities. Cardiac enzymes were not elevated. CTA was obtained and demonstrated extensive bilateral pulmonary emboli with saddle component. I did receive a phone call in consultation from the emergency department physician to discuss continuation of care. After discussion with my attending physician, Dr. Faisal eller, it was agreed that given the lack of findings of RIGHT-sided heart strain on CT as well as lack of elevation of cardiac enzymes, and lack of EKG findings in association with an asymptomatic hemodynamically stable patient, we would admit the patient to the ICU on heparin drip for further evaluation and continued management. On evaluation, the patient is awake, alert, and oriented. The patient is in no distress at all. Patient admits to minimal shortness of breath on exertion, and only really felt short of breath when ambulating the steps. He denies any personal history or family history of blood clots/bleeding disorders. He reports no history of chest pain, palpitations, hemoptysis, nausea, vomiting, or abdominal pain. The patient offers no complaints otherwise. Patient is a 62-year-old male who is a former smoker. He occasionally drinks alcohol. No use of illicit drugs appreciated. Past Medical/Surgical History Medical Problems: (1) DM type 2 (diabetes mellitus, type 2) (2) GERD (gastroesophageal reflux disease) (3) Hypertension (4) Pulmonary embolism (5) Rheumatoid arthritis Surgical Problems: (1) H/O Achilles tendon repair (2) History of total left knee replacement (3) History of total right knee replacement (4) S/P tonsillectomy Family History Diabetes mellitus Hypertension Social History Smoking Status: Former Smoker Smokeless Tobacco Use: No Alcohol Use: occasionally Drug Use: none Marital Status: Housing Status: lives with significant other Allergies Coded Allergies: No Known Allergies (Unverified , 10/25/17) Home Medications Scheduled Desoximetasone (Topicort), 1 APPLN TOP DIRECTED Folic Acid (Folvite), 1 MG PO QAM Methotrexate Sodium (Methotrexate), 8 TAB PO WK Olmesartan Medoxomil (Olmesartan Medoxomil), 1 TAB PO QAM Omeprazole (Omeprazole Dr), 40 MG PO QAM Sitagliptin-Metformin Hcl (Janumet Xr), 2,000 MG PO DAILY Scheduled PRN Acetaminophen (Tylenol), 1,000 MG PO Q8 PRN for Pain Celecoxib (CeleBREX), 200 MG PO DIRECTED PRN for RHEUMATOID PAIN Hydrocodone/Acetaminophen 5MG/325MG ([place] 5MG/325MG), 1-2 TABLETS PO Q4-6HRS PRN for Pain Oxycodone/Acetaminophen 5MG/325MG (Oxycodone/Acetaminophen 5MG/325MG), 1-2 TABLETS PO Q4H PRN for Pain Prednisone (Prednisone), 5 MG PO TID PRN for RHEUMATOID PAIN Current Inpatient Medications Current Inpatient Medications Medications (Trade) Dose Ordered Sig/Gissell Route Start Time Stop Time Status Last Admin Dose Admin Ioversol (Optiray 320) 100 ml UD PRN IV 10/25/17 18:30 10/29/17 18:29 Insulin Glargine (Lantus Solostar Pen) 20 units HS SC 10/26/17 21:00 11/25/17 20:59 UNV Insulin Glargine (Lantus Solostar Pen) 20 units 2028 ONCE SC 10/25/17 20:29 10/25/17 20:30 UNV Glucose (Glucose 40% Gel) 15-30 GRAMS 15 GRAMS... UD PRN PO 10/25/17 20:45 11/24/17 20:44 Glucose (Glucose Chew Tab) 4-8 Tablets 4 Tabl... UD PRN PO 10/25/17 20:45 11/24/17 20:44 Dextrose (Dextrose 50% 50ML Syringe) 25-50ML 25ML FOR ... UD PRN IV 10/25/17 20:45 11/24/17 20:44 Glucagon (Glucagon Inj) 1 mg UD PRN IM 10/25/17 20:45 11/24/17 20:44 Carbohydrates (Carbohydrates For Hypoglycemia) 15-30 GRAMS 15 grams if BSG 54-69... UD PRN PO 10/25/17 20:45 11/24/17 20:44 Review of Systems A complete 10-point Review of Systems was discussed with the patient, with pertinent positives and negatives listed in the History of Present Illness. All remaining Review of Systems questions can be considered negative unless otherwise specified. Physical Exam Date Time Temp Pulse Resp B/P (MAP) Pulse Ox O2 Delivery O2 Flow Rate FiO2 10/25/17 20:28 87 10/25/17 19:40 90 18 131/84 99 Room Air 10/25/17 19:01 96 Room Air 10/25/17 19:01 96 Room Air 10/25/17 18:15 88 18 135/92 97 Room Air 10/25/17 16:14 36.9 105 18 101/62 96 Room Air VITAL SIGNS - Vital signs and nursing notes were reviewed. GENERAL - 62-year-old male appearing his stated age who is in no acute distress. Communicates well with provider and answers questions appropriately. SKIN - Without rashes. HEAD - NC/AT. EYES - PERRL with EOMI bilaterally. Sclera anicteric. EARS - No deformities of external structures noted on gross examination bilaterally. NOSE - Midline and without cyanosis. MOUTH/OROPHARYNX - Without perioral cyanosis. Buccal mucosa pink and moist and without leukoplakia. NECK - Neck with FROM. Supple to palpation. No lymphadenopathy noted. No nuchal rigidity. LUNGS - Chest wall symmetric without accessory muscle use, intercostals retractions, or central cyanosis. Normal vesicular breath sounds CTA B/L. No wheezes, rales, or rhonchi appreciated. CARDIAC - RRR with S1/S2. No murmur, rubs, or gallops appreciated. ABDOMEN - Abdominal contour obese without pulsations or visible masses. BS normoactive all four quadrants. No tenderness, palpable masses, hepatosplenomegaly, or ascites noted. EXTREMITIES - No clubbing or peripheral cyanosis. Moderate edema noted from the RIGHT knee down to the foot when compared to the LEFT. +3/5 radial and dorsalis pedis pulses palpated throughout. +5/5 strength noted in UE/LE bilaterally. NEUROLOGIC - Cranial nerves II through XII grossly intact. Sensory intact to light touch throughout. PSYCH - A&Ox3 and cooperates fully with examiner. Pt is very pleasant and interacts well with examiner. Laboratory Results Last 24 Hours Test 10/25/17 18:35 10/25/17 18:38 White Blood Count 8.20 K/uL Red Blood Count 4.49 M/uL Hemoglobin 14.7 g/dL Hematocrit 43.5 % Mean Corpuscular Volume 96.9 fL Mean Corpuscular Hemoglobin 32.7 pg Mean Corpuscular Hemoglobin Concent 33.8 g/dl Platelet Count 168 K/uL Mean Platelet Volume 10.7 fL Neutrophils (%) (Auto) 69.2 % Lymphocytes (%) (Auto) 19.6 % Monocytes (%) (Auto) 6.5 % Eosinophils (%) (Auto) 3.8 % Basophils (%) (Auto) 0.5 % Neutrophils # (Auto) 5.68 K/uL Lymphocytes # (Auto) 1.61 K/uL Monocytes # (Auto) 0.53 K/uL Eosinophils # (Auto) 0.31 K/uL Basophils # (Auto) 0.04 K/uL RDW Standard Deviation 46.7 fL RDW Coefficient of Variation 13.7 % Immature Granulocyte % (Auto) 0.4 % Immature Granulocyte # (Auto) 0.03 K/uL Prothrombin Time 10.3 SECONDS Prothromb Time International Ratio 1.0 Activated Partial Thromboplast Time 23.0 SECONDS Partial Thromboplastin Ratio 0.9 Sodium Level 135 mmol/L Potassium Level 4.5 mmol/L Chloride Level 103 mmol/L Carbon Dioxide Level 26 mmol/L Anion Gap 6.0 mmol/L 17.0 mmol/L Blood Urea Nitrogen 22 mg/dl Creatinine 1.33 mg/dl Est Creatinine Clear Calc Drug Dose 85.2 ml/min Estimated GFR () 65.9 Estimated GFR (Non- 56.9 BUN/Creatinine Ratio 16.5 Random Glucose 287 mg/dl Calcium Level 9.1 mg/dl Magnesium Level 1.6 mg/dl Total Bilirubin 0.4 mg/dl Aspartate Amino Transf (AST/SGOT) 16 U/L Alanine Aminotransferase (ALT/SGPT) 30 U/L Alkaline Phosphatase 70 U/L Troponin I < 0.015 ng/ml Pro-B-Type Natriuretic Peptide 32 pg/ml Total Protein 7.4 gm/dl Albumin 3.9 gm/dl Globulin 3.5 gm/dl Albumin/Globulin Ratio 1.1 Bedside Hemoglobin 14.6 g/dl Bedside Hematocrit 43 % Bedside Sodium 139 mEq/L Bedside Potassium 4.6 mEq/L Bedside Chloride 99 mEq/L Bedside Total CO2 29 mEq/l Bedside Blood Urea Nitrogen 24 mg/dl Bedside Creatinine 1.2 mg/dl Bedside Glucose (other) 291 mg/dl Bedside Ionized Calcium (Alicia) 1.20 mmol/l Diagnostic Results Radiological imaging and reports were reviewed by myself. Radiologist's Interpretation as follows: VENOUS DOPP LOWER EXT UNILAT CLINICAL HISTORY: RIGHT LEG PAIN AND SWELLING pain. Edema. TECHNIQUE: Venous Doppler COMPARISON STUDY: None FINDINGS: Extensive acute deep venous thrombosis throughout the right leg. This includes the bulk of the deep calf veins and extends to the proximal femoral vein. Compressibility is incomplete. Augmentation characteristics are compromised. IMPRESSION: Extensive acute deep venous thrombosis involving the right thigh and lower leg. CHEST ONE VIEW PORTABLE CLINICAL HISTORY: 62 years-old Male presenting with EVALUATE RESPIRATORY DISTRESS.DYSPNEA. TECHNIQUE: Portable upright AP view of the chest was obtained. COMPARISON: 11/16/2016. FINDINGS: Cardiomediastinal silhouette normal. Prominence of the bilateral aaron, possibly vascular in etiology. Prominent lung markings bilaterally. No focal opacity. No large effusion or pneumothorax. Degenerative changes of the spine suggested. IMPRESSION: 1. Prominence of the bilateral aaron, possibly vascular in etiology though underlying lymphadenopathy is not excluded. This may represent volume overload. This could be followed to resolution. (CHEST FOR PE) ANGIO WITH CLINICAL HISTORY: 62 years-old Male presenting with ^EVALUATE FOR PE ^RESPIRATORY DISTRESS.DYSPNEA, deep venous thrombosis in the right leg. TECHNIQUE: Multidetector CT angiography of the chest was performed after administration of intravenous contrast. 3-D volumetric and/or maximum intensity projection (MIP) images were subsequently reconstructed for review. IV contrast: 115 mL of Optiray 320. A dose lowering technique was used consistent with the principles of ALARA (as low as reasonably achievable). COMPARISON: Chest x-ray performed earlier today and right lower extremity venous Doppler from earlier today. CT DOSE (mGy.cm): The estimated cumulative dose is 774.78 mGy.cm. FINDINGS: Nursing Manager topogram: Unremarkable. Pulmonary vasculature: The study is suboptimal for the assessment of the pulmonary vascular tree secondary to timing of the contrast bolus. Extensive bilateral pulmonary emboli including a saddle pulmonary embolus involving the origins of the right and left main pulmonary arteries. Extensive lobar, segmental, and subsegmental pulmonary emboli involving primarily the lower lobes though all 5 lobes are affected to varying degrees. Main pulmonary artery is top normal in size. No flattening of the interventricular septum. No intracardiac filling defect. No reflux of contrast into the hepatic veins. Remaining chest: On soft tissue windows, normal thyroid and thoracic inlet. No axillary, supraclavicular, hilar, or mediastinal lymphadenopathy. Normal aorta. Normal heart size. Coronary artery calcification. No pericardial or pleural effusion. Upper abdomen normal. On lung windows, Mosaic attenuation in the lungs. Minimal linear opacities scattered throughout the lungs, likely atelectasis or scarring. Trace emphysema suggested. No solid peripheral consolidation. Airways patent. On bone windows, degenerative changes of the spine. IMPRESSION: 1. Extensive bilateral acute pulmonary emboli including a saddle pulmonary embolus involving the origins of the right and left main pulmonary arteries. No CT evidence of right heart strain or pulmonary infarcts at this time. The report will be called/faxed according to standard departmental protocol. Assessment & Plan (1) Pulmonary embolism without acute cor pulmonale (2) Saddle embolus of pulmonary artery without acute cor pulmonale (3) DM type 2 (diabetes mellitus, type 2) (4) Hypertension (5) Rheumatoid arthritis (6) H/O Achilles tendon repair Reason Critically Ill: 62-year-old male with extensive bilateral pulmonary emboli with saddle component placed on heparin drip in the emergency department requiring close monitoring for hemodynamic stability and possible decompensation given above-mentioned presentation. Neuro - * CAM ICU: NEGATIVE * Back pain with LEFT-sided Sciatica: * [place] PRN. * Tylenol encouraged. Cardiac/Respiratory - * Extensive Bilateral Pulmonary Emboli with Saddle Component: * Hemodynamically stable on presentation. * Heparin gtt initiated in the ED. * No RIGHT sided strain noted on CTA. * No EKG changes or Cardiac enzyme elevations appreciated. * EKG: NSR 91bpm w/o ST/T-wave changes per my interpretation. QTc 430ms. * Would ideally like to have Echo to evaluate RIGHT sided heart strain, but given the lack of s/s, likely without significant compromise to this point. * Agree with Heparin gtt. * Known source from RIGHT lower extremity 2/2 immobilization s/p Achilles Tendon Repair. * Monitor in the unit in the acute setting. * Consider Thrombolytic therapy in the event of acute decompensation. * Supplemental O2 PRN. * Monitor on Telemetry. * EKG for any c/o CP GI - * Prophylaxis: Omeprazole * Diet: DMII RENAL/LYTES - * No significant electrolyte abnormalities: * Will monitor, replace appropriately. * Will hold on IVF - tolerating PO. - * No issues at this point. ENDO - * DMII: * Hold home Rx. * ISS per protocol --> insulin gtt per unit protocol. * No h/o Thyroid Disease. RHEUM - * Rheumatoid Arthritis: * Currently on Methotrexate weekly - continue. * Patient takes Prednisone PRN?? Takes approximately every other day. * Consider stress dose steroids if hemodynamics become compromised, but have to consider above-mentioned conditions to be the culprit in acute decompensation. HEME - * Stable H&H: * Will monitor closely s/p initiation of Heparin gtt. ID - * No c/o infection at this point. * Monitor fever curve. LINES/IV ACCESS - * PIVs x2 DVT PROPHYLAXIS - * Heparin gtt * Hold on SCDs 2/2 known extensive RIGHT DVT. CODE STATUS - * After extensive conversation with the patient, he will be a LEVEL I FULL RESUSCITATION in the event of any changes. I have personally spent 45 minutes of critical care time in the direct management of this patient. This is a life/limb threatening event. This includes time spent evaluating patient, direct bedside care, chart review, placing orders, interpretation of diagnostic studies, discussion with consultants, patient, and family members, as well as other required patient management activities. This time is exclusive of all separately billable procedures, and teaching time and separate from and in addition to any other critical care service time. Thank you for this consultation allow us to be part of this patient's care. Please refer to my attending physician's documentation for any further recommendations. The patient was seen, examined independently, agree with assessment and plan of my colleague Juancarlos Hogan. The patient presented to the hospital with increasing shortness of breath for the past 2 weeks. The patient apparently had Achillis tendon repair September 15, 2017. Complicated by DVT which was detected prior to admission where he was sent to the ED and workup completed and revealed saddle embolus. The patient did not have any hypoxia and no tachypnea but he felt heaviness in his chest according to him. The patient was started on heparin, no findings to support RV strain pattern needed by echo or by CAT scan. The patient troponin was also negative. His physical exam revealed morbidly obese gentleman, not in any apparent distress, O2 saturation registered at 94% on room air, blood pressure 104/77 with a heart rate 91 and normal sinus rhythm. No JVP. Lungs are clear, S1-S2 regular rate and rhythm, abdomen is benign, slight edema in the periphery. CAT scan of the chest which I reviewed myself revealed saddle embolus with fragmented emboli and most of the segments bilaterally. No signs of pulmonary infarct or pleural effusion. Impression: 1. Acute pulmonary embolism secondary to immobility postop. 2. Morbid obesity. 3. History of rheumatoid arthritis. 4. Achillis tendinitis with surgical repair done in 09/15/2017. 5. No evidence of RV strain so far. Plan: 1. Continue with the heparin. Follow PTT closely. Make sure it is therapeutic. 2. Start Coumadin 7.5 mg p.o. daily. I would favor Coumadin over new anticoagulant agents due to the saddle embolus and for better control at this point. 3. The patient should be treated with Coumadin and heparin with both therapeutics overlapping for at least 24 hours. Prior to stopping the heparin. 4. The patient should be continued with the Coumadin for the next 6 month. 5. I have discussed the option of administering TPA, however the patient is not showing signs of hemodynamic instability, nor signs of cor pulmonale. 6. Instructions were given to the patient regarding watching for signs of bleeding including hematochezia and melena. 7. 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 8. Keep the patient in the ICU for today. 9. Case discussed on rounds with the staff and details. Critical care time spent with the patient was 45 minutes. Problem Qualifiers (1) Pulmonary embolism without acute cor pulmonale: Pulmonary embolism type: saddle Chronicity: acute Qualified Codes: I26.92 - Saddle embolus of pulmonary artery without acute cor pulmonale (2) Saddle embolus of pulmonary artery without acute cor pulmonale: Chronicity: acute Qualified Codes: I26.92 - Saddle embolus of pulmonary artery without acute cor pulmonale (3) DM type 2 (diabetes mellitus, type 2): Diabetes mellitus complication status: with unspecified complications (4) Hypertension: Hypertension type: essential hypertension Qualified Codes: I10 - Essential ( primary) hypertension (5) Rheumatoid arthritis: Rheumatoid arthritis location: multiple sites Rheumatoid factor presence: unspecified presence Qualified Codes: M06.9 - Rheumatoid arthritis, unspecified
[2017-10-25] MEDS ORDERED: GLUCAGON FOR INJ 1 MG VIAL IM PRN (20:45)
[2017-10-25] MEDS ORDERED: GLUCOSE 40% GEL 15 GM TUBE PO PRN ×2 (20:45→22:30)
[2017-10-25] MEDS ORDERED: GLUCOSE 10 TABS/TUBE PO PRN ×2 (20:45→22:30)
[2017-10-25] MEDS ORDERED: CARBOHYDRATES FOR HYPOGLYCEMIA PO PRN ×2 (20:45→22:30)
[2017-10-25] MEDS ORDERED: DEXTROSE 50% 50 ML SYR IV PRN ×2 (20:45→22:30)
[2017-10-25] MEDS ORDERED: INSULIN GLARGINE SOLOSTAR 100 UNITS/ML 3 ML PEN SC ONE (20:45)
[2017-10-25] MEDS: OXYCODONE/ACETAMINOPHEN 5-325 TAB PO PRN (20:55)
--- NOTE | 2017-10-25 21:38 | History and Physical ---
History & Physical Date & Time of Service: Oct 25, 2017 ~ 2014 Chief Complaint: Blood clot in the right leg Primary Care Physician: Nghia Elizabeth M.D. History of Present Illness 62-year-old male who was referred to the ED by his orthopedic physician for evaluation of DVT in the right leg. Patient underwent right Achilles tendon repair on 09/[address] King in [place]. Patient reports increasing swelling to his right leg over the past 1 week. He denies pain in the right leg. Outpatient ultrasound showed a significant DVT in the right lower extremity. Patient was then referred to the ER for further evaluation. Patient reports mild shortness of breath. Denies chest pain. No lightheadedness, dizziness, diaphoresis, syncopal events. He denies abdominal pain, nausea, vomiting, diarrhea. No fevers or chills. He denies any urinary symptoms. Outpatient ultrasound showed extensive acute deep venous thrombosis involving the right thigh and lower leg. CTA chest in the ED showed extensive bilateral acute pulmonary emboli including a saddle pulmonary embolus involving the origins of the right and left main pulmonary arteries. Patient is hemodynamically stable and saturating well on room air. He was started on a heparin drip in the ED. Past Medical/Surgical History Medical Problems: (1) DM type 2 (diabetes mellitus, type 2) Status: Chronic (2) GERD (gastroesophageal reflux disease) Status: Chronic (3) Hypertension Status: Chronic (4) Rheumatoid arthritis Status: Chronic Surgical Problems: (1) H/O Achilles tendon repair Status: Chronic (2) History of total left knee replacement Status: Chronic (3) History of total right knee replacement Status: Chronic (4) S/P tonsillectomy Status: Chronic Family History Diabetes mellitus Hypertension Social History Smoking Status: Former Smoker Alcohol Use: occasionally Allergies Coded Allergies: No Known Allergies (Unverified , 10/25/17) Home Medications Scheduled Desoximetasone (Topicort), 1 APPLN TOP DIRECTED Folic Acid (Folvite), 1 MG PO QAM Methotrexate Sodium (Methotrexate), 8 TAB PO WK Olmesartan Medoxomil (Olmesartan Medoxomil), 1 TAB PO QAM Omeprazole (Omeprazole Dr), 40 MG PO QAM Sitagliptin-Metformin Hcl (Janumet Xr), 2,000 MG PO DAILY Scheduled PRN Acetaminophen (Tylenol), 1,000 MG PO Q8 PRN for Pain Celecoxib (CeleBREX), 200 MG PO DIRECTED PRN for RHEUMATOID PAIN Hydrocodone/Acetaminophen 5MG/325MG ([place] 5MG/325MG), 1-2 TABLETS PO Q4-6HRS PRN for Pain Oxycodone/Acetaminophen 5MG/325MG (Oxycodone/Acetaminophen 5MG/325MG), 1-2 TABLETS PO Q4H PRN for Pain Prednisone (Prednisone), 5 MG PO TID PRN for RHEUMATOID PAIN Review of Systems ROS per HPI, all other systems reviewed and negative Physical Exam Vital Signs Date Time Temp Pulse Resp B/P (MAP) Pulse Ox O2 Delivery O2 Flow Rate FiO2 10/25/17 21:09 85 18 157/91 96 Room Air 10/25/17 20:28 87 10/25/17 19:40 90 18 131/84 99 Room Air 10/25/17 19:01 96 Room Air 10/25/17 19:01 96 Room Air 10/25/17 18:15 88 18 135/92 97 Room Air 10/25/17 16:14 36.9 105 18 101/62 96 Room Air General Appearance: WD/WN, no apparent distress Head: normocephalic, atraumatic Eyes: normal inspection, EOMI, sclerae normal ENT: hearing grossly normal, + pertinent finding (Mucous membranes moist) Neck: supple, no JVD, trachea midline Respiratory/Chest: no respiratory distress, + decreased breath sounds ( Bilateral bases) Cardiovascular: regular rate, rhythm, normal peripheral pulses, + pertinent finding (+3 edema RLE) Abdomen/GI: normal bowel sounds, non tender, soft, no organomegaly Extremities/Musculoskelatal: no calf tenderness, normal capillary refill, + pertinent finding (Surgical incision noted to right Achilles tendon healing well without surrounding erythema or drainage; +3 edema to the RLE extending from the thigh down the leg) Neurologic/Psych: no motor/sensory deficits, alert, normal mood/affect, oriented x 3 Skin: normal color, warm/dry Diagnostics Laboratory Results Results Past 24 Hours Test 10/25/17 18:35 10/25/17 18:38 10/25/17 21:10 Range/Units White Blood Count 8.20 4.8-10.8 K/uL Red Blood Count 4.49 4.7-6.1 M/uL Hemoglobin 14.7 14.0-18.0 g/dL Hematocrit 43.5 42-52 % Mean Corpuscular Volume 96.9 80-100 fL Mean Corpuscular Hemoglobin 32.7 25-34 pg Mean Corpuscular Hemoglobin Concent 33.8 32-36 g/dl Platelet Count 168 130-400 K/uL Mean Platelet Volume 10.7 7.4-10.4 fL Neutrophils (%) (Auto) 69.2 % Lymphocytes (%) (Auto) 19.6 % Monocytes (%) (Auto) 6.5 % Eosinophils (%) (Auto) 3.8 % Basophils (%) (Auto) 0.5 % Neutrophils # (Auto) 5.68 1.4-6.5 K/uL Lymphocytes # (Auto) 1.61 1.2-3.4 K/uL Monocytes # (Auto) 0.53 0.11-0.59 K/uL Eosinophils # (Auto) 0.31 0-0.5 K/uL Basophils # (Auto) 0.04 0-0.2 K/uL RDW Standard Deviation 46.7 36.4-46.3 fL RDW Coefficient of Variation 13.7 11.5-14.5 % Immature Granulocyte % (Auto) 0.4 % Immature Granulocyte # (Auto) 0.03 0.00-0.02 K/uL Prothrombin Time 10.3 9.0-12.0 SECONDS Prothromb Time International Ratio 1.0 0.9-1.1 Activated Partial Thromboplast Time 23.0 21.0-31.0 SECONDS Partial Thromboplastin Ratio 0.9 Sodium Level 135 136-145 mmol/L Potassium Level 4.5 3.5-5.1 mmol/L Chloride Level 103 98-107 mmol/L Carbon Dioxide Level 26 21-32 mmol/L Anion Gap 6.0 17.0 16-25 mmol/L Blood Urea Nitrogen 22 7-18 mg/dl Creatinine 1.33 0.60-1.40 mg/dl Est Creatinine Clear Calc Drug Dose 85.2 ml/min Estimated GFR () 65.9 Estimated GFR (Non- 56.9 BUN/Creatinine Ratio 16.5 10-20 Random Glucose 287 70-99 mg/dl Calcium Level 9.1 8.5-10.1 mg/dl Magnesium Level 1.6 1.8-2.4 mg/dl Total Bilirubin 0.4 0.2-1 mg/dl Aspartate Amino Transf (AST/SGOT) 16 15-37 U/L Alanine Aminotransferase (ALT/SGPT) 30 12-78 U/L Alkaline Phosphatase 70 45-117 U/L Troponin I < 0.015 0-0.045 ng/ml Pro-B-Type Natriuretic Peptide 32 0-900 pg/ml Total Protein 7.4 6.4-8.2 gm/dl Albumin 3.9 3.4-5.0 gm/dl Globulin 3.5 2.5-4.0 gm/dl Albumin/Globulin Ratio 1.1 0.9-2 Bedside Hemoglobin 14.6 14.0-18.0 g/dl Bedside Hematocrit 43 42-52 % Bedside Sodium 139 135-144 mEq/L Bedside Potassium 4.6 3.3-5.0 mEq/L Bedside Chloride 99 101-112 mEq/L Bedside Total CO2 29 24-31 mEq/l Bedside Blood Urea Nitrogen 24 7-18 mg/dl Bedside Creatinine 1.2 0.6-1.3 mg/dl Bedside Glucose (other) 291 70-99 mg/dl Bedside Ionized Calcium (Alicia) 1.20 1.12-1.32 mmol/l Diagnostic Radiology CTA CHEST IMPRESSION: 1. Extensive bilateral acute pulmonary emboli including a saddle pulmonary embolus involving the origins of the right and left main pulmonary arteries. No CT evidence of right heart strain or pulmonary infarcts at this time. CXR IMPRESSION: 1. Prominence of the bilateral aaron, possibly vascular in etiology though underlying lymphadenopathy is not excluded. This may represent volume overload. This could be followed to resolution. RLE US IMPRESSION: Extensive acute deep venous thrombosis involving the right thigh and lower leg. Impression Assessment and Plan 62-year-old male who presented to the ED after outpatient ultrasound found extensive DVT in the right lower extremity. Patient underwent Achilles tendon repair in [place] with Dr. King on 09/15. In the ED, patient is found to have extensive bilateral pulmonary emboli including saddle embolus. Patient is saturating well on room air and is currently hemodynamically stable. He will be admitted to ICU for close observation overnight. He has been started on a heparin drip in the ED which will be continued. Please see Dr. Allen's addendum for further details Resuscitation Status VTE Prophylaxis Will order VTE Prophylaxis: Yes Assessment/Plan IM ATTENDING : Patient seen and examined. History obtained from patient. Preceding documentation by RAE Zavala, reviewed. FINAL ASSESSMENT AND PLAN as follow: 1. Acute pulmonary thrombusembolism Saddle emboli on CT, no cardiac strain. recent right lower extremity surgery. 2. Hypertension, blood pressure stable. 3. DM2, on oral meds, suboptimal control. Recent A1c from last year was 9.3. 4. Rheumatoid arthritis on chronic methotrexate, prednisone rx. ICU monitoring 2D echo saddle PE, ro RV strain. IV heparin. Pulmonary consult RE Saddle PE Defer discussion regarding regarding choice of oral anticoagulation on discharge between patient and AM providers. Basal insulin, ISS BG goal 140-180, check HgA1c. DVT prophylaxis, Heparin. Full code.
[2017-10-25 22:10] VITALS: BP 114/77; PULSE 96; TEMP 36.7; O2SAT 96; BMI 39.0
[2017-10-25] MEDS ORDERED: INSULIN ASPART 100 UNITS/ML 3 ML PEN SC ONE (22:16)
[2017-10-25] MEDS ORDERED: ACETAMINOPHEN 325 MG TAB PO PRN (22:30)
[2017-10-25] MEDS ORDERED: HEPARIN IV BOLUS 8,000 UNIT in SYRINGE 0 ML IV ONE (22:30)
[2017-10-25] MEDS ORDERED: SODIUM CHLORIDE 0.9% 1000ML 1,000 ML IV ONE (22:30)
[2017-10-25] MEDS ORDERED: NITROGLYCERIN 0.4 MG SL PER TAB CHARGE SL PRN (22:30)
[2017-10-25] MEDS ORDERED: MoRPHine SULFATE 4 MG/ML 1 ML CARP\\VIAL IV PRN (22:30)
[2017-10-25] MEDS ORDERED: GLUCAGON FOR INJ 1 MG VIAL SQ PRN (22:30)
[2017-10-25] MEDS ORDERED: ICU PROTOCOL FOR HYPERGLYCEMIA PRN (22:30)
[2017-10-25] MEDS ORDERED: PROCHLORPERAZINE INJ 5 MG in SYRINGE 4 ML IV PRN (22:30)
[2017-10-25] MEDS ORDERED: LORAZEPAM 2 MG/ML 1 ML VIAL IV PRN (22:30)
[2017-10-25] MEDS ORDERED: HEPARIN IV BOLUS 3,000 UNIT in SYRINGE 0 ML IV ONE (23:00)
[2017-10-25] MEDS: HEPARIN 25,000 UNIT/500ML D5W 500 ML IV SCH (23:22)
[2017-10-26] VITALS (27 sets, daily range): BP systolic 94–136; BP diastolic 57–88; PULSE 79–93; TEMP 36.6–37; O2SAT 88–97; BMI 39.1
--- NOTE | 2017-10-26 00:17 | EMERGENCY ROOM VISIT NOTE ---
History Report prepared by Jessie: Wendy Pina Under the Supervision of: Dr. Fan Silveira D.O. First contact with patient: 18:11 Chief Complaint: LEG PAIN,LEG INJURY Stated Complaint: BLOOD CLOT RT LEG SET BY History of Present Illness The patient is a 62 year old male who presents to the Emergency Room with complaints of constant R leg pain beginning recently. He notes he has been wearing a R leg boot for about a month, following snapping his Achilles tendon 5 weeks ago. The patient states he was referred to the ED by Dr. King today after an ultrasound revealed DVT in his RLE. He notes notes some mild SOB that began last week. No other exacerbating or remitting factors. The patient denies chest pain, nausea, vomiting, diarrhea, pain with urination, melena, coughing up blood, blood with urination. He denies a history of brain bleeds. Source of History: patient Onset: recently Position: leg (right) Associated Symptoms: + SOB (mild, beginning last week), No chest pain, No nausea, No vomiting, No melena, No diarrhea, No urinary symptoms Note: Denies: coughing up blood Review of Systems See HPI for pertinent positives & negatives. A total of 10 systems reviewed and were otherwise negative. Past Medical & Surgical Medical Problems: (1) DM type 2 (diabetes mellitus, type 2) (2) GERD (gastroesophageal reflux disease) (3) Hypertension (4) Pulmonary embolism (5) Rheumatoid arthritis Surgical Problems: (1) H/O Achilles tendon repair (2) History of total left knee replacement (3) History of total right knee replacement (4) S/P tonsillectomy Family History Diabetes mellitus Hypertension Social History Smoking Status: Never Smoker Drug Use: none Marital Status: Housing Status: lives with significant other Current/Historical Medications Scheduled Desoximetasone (Topicort), 1 APPLN TOP DIRECTED Folic Acid (Folvite), 1 MG PO QAM Methotrexate Sodium (Methotrexate), 8 TAB PO WK Olmesartan Medoxomil (Olmesartan Medoxomil), 1 TAB PO QAM Omeprazole (Omeprazole Dr), 40 MG PO QAM Sitagliptin-Metformin Hcl (Janumet Xr), 2,000 MG PO DAILY Scheduled PRN Acetaminophen (Tylenol), 1,000 MG PO Q8 PRN for Pain Celecoxib (CeleBREX), 200 MG PO DIRECTED PRN for RHEUMATOID PAIN Hydrocodone/Acetaminophen 5MG/325MG ([place] 5MG/325MG), 1-2 TABLETS PO Q4-6HRS PRN for Pain Oxycodone/Acetaminophen 5MG/325MG (Oxycodone/Acetaminophen 5MG/325MG), 1-2 TABLETS PO Q4H PRN for Pain Prednisone (Prednisone), 5 MG PO TID PRN for RHEUMATOID PAIN Allergies Coded Allergies: No Known Allergies (Unverified , 10/25/17) Physical Exam Vital Signs Date Time Temp Pulse Resp B/P (MAP) Pulse Ox O2 Delivery O2 Flow Rate FiO2 10/25/17 21:09 85 18 157/91 96 Room Air 10/25/17 20:28 87 10/25/17 19:40 90 18 131/84 99 Room Air 10/25/17 19:01 96 Room Air 10/25/17 19:01 96 Room Air 10/25/17 18:15 88 18 135/92 97 Room Air 10/25/17 16:14 36.9 105 18 101/62 96 Room Air Physical Exam GENERAL: Sitting up in bed, alert, well appearing, well nourished, no distress, non-toxic, disheveled EYE EXAM: normal conjunctiva. OROPHARYNX: no exudate, no erythema, lips, buccal mucosa, and tongue normal and mucous membranes are moist NECK: supple, no nuchal rigidity, no adenopathy, non-tender LUNGS: Clear to auscultation. Normal chest wall mechanics HEART: no murmurs, S1 normal and S2 normal ABDOMEN: abdomen soft, non-tender, normo-active bowel sounds, no masses, no rebound or guarding. pain in epigastric region upon palpation. BACK: Back is symmetrical on inspection and there is no deformity, no midline tenderness, no CVA tenderness. SKIN: no rashes and no bruising UPPER EXTREMITIES: upper extremities are grossly normal. LOWER EXTREMITIES: RLE in boot, R calf larger than L calf, DPs 2/4, gross sensation intact, able to plantarflex and dorsiflex. NEURO EXAM: Normal sensorium, cranial nerves II-XII grossly intact, normal speech, no gross weakness of arms. Medical Decision & Procedures ER Provider Diagnostic Interpretation: Radiology results as stated below per my review and the radiologist's interpretation: (CHEST FOR PE) ANGIO WITH CLINICAL HISTORY: 62 years-old Male presenting with ^EVALUATE FOR PE ^RESPIRATORY DISTRESS.DYSPNEA, deep venous thrombosis in the right leg. TECHNIQUE: Multidetector CT angiography of the chest was performed after administration of intravenous contrast. 3-D volumetric and/or maximum intensity projection (MIP) images were subsequently reconstructed for review. IV contrast: 115 mL of Optiray 320. A dose lowering technique was used consistent with the principles of ALARA (as low as reasonably achievable). COMPARISON: Chest x-ray performed earlier today and right lower extremity venous Doppler from earlier today. CT DOSE (mGy.cm): The estimated cumulative dose is 774.78 mGy.cm. FINDINGS: Lining Machine Tender topogram: Unremarkable. Pulmonary vasculature: The study is suboptimal for the assessment of the pulmonary vascular tree secondary to timing of the contrast bolus. Extensive bilateral pulmonary emboli including a saddle pulmonary embolus involving the origins of the right and left main pulmonary arteries. Extensive lobar, segmental, and subsegmental pulmonary emboli involving primarily the lower lobes though all 5 lobes are affected to varying degrees. Main pulmonary artery is top normal in size. No flattening of the interventricular septum. No intracardiac filling defect. No reflux of contrast into the hepatic veins. Remaining chest: On soft tissue windows, normal thyroid and thoracic inlet. No axillary, supraclavicular, hilar, or mediastinal lymphadenopathy. Normal aorta. Normal heart size. Coronary artery calcification. No pericardial or pleural effusion. Upper abdomen normal. On lung windows, Mosaic attenuation in the lungs. Minimal linear opacities scattered throughout the lungs, likely atelectasis or scarring. Trace emphysema suggested. No solid peripheral consolidation. Airways patent. On bone windows, degenerative changes of the spine. IMPRESSION: 1. Extensive bilateral acute pulmonary emboli including a saddle pulmonary embolus involving the origins of the right and left main pulmonary arteries. No CT evidence of right heart strain or pulmonary infarcts at this time. The report will be called/faxed according to standard departmental protocol. Electronically signed by: Aravind Ruiz M.D. 10/25/2017 7:40 PM Dictated Date/Time: 10/25/2017 7:35 PM CHEST ONE VIEW PORTABLE CLINICAL HISTORY: 62 years-old Male presenting with EVALUATE RESPIRATORY DISTRESS.DYSPNEA. TECHNIQUE: Portable upright AP view of the chest was obtained. COMPARISON: 11/16/2016. FINDINGS: Cardiomediastinal silhouette normal. Prominence of the bilateral aaron, possibly vascular in etiology. Prominent lung markings bilaterally. No focal opacity. No large effusion or pneumothorax. Degenerative changes of the spine suggested. IMPRESSION: 1. Prominence of the bilateral aaron, possibly vascular in etiology though underlying lymphadenopathy is not excluded. This may represent volume overload. This could be followed to resolution. Electronically signed by: Aravind Ruiz M.D. 10/25/2017 6:58 PM Dictated Date/Time: 10/25/2017 6:56 PM Laboratory Results 10/25/17 18:35 Red Blood Count 4.49, Mean Corpuscular Volume 96.9, Mean Corpuscular Hemoglobin 32.7, Mean Corpuscular Hemoglobin Concent 33.8, Mean Platelet Volume 10.7, Neutrophils (%) (Auto) 69.2, Lymphocytes (%) (Auto) 19.6, Monocytes (%) (Auto) 6.5, Eosinophils (%) (Auto) 3.8, Basophils (%) (Auto) 0.5, Neutrophils # (Auto) 5.68, Lymphocytes # (Auto) 1.61, Monocytes # (Auto) 0.53, Eosinophils # (Auto) 0.31, Basophils # (Auto) 0.04 10/25/17 18:35 Test 10/25/17 18:35 10/25/17 18:38 10/25/17 21:10 White Blood Count 8.20 K/uL (4.8-10.8) Red Blood Count 4.49 M/uL (4.7-6.1) Hemoglobin 14.7 g/dL (14.0-18.0) Hematocrit 43.5 % (42-52) Mean Corpuscular Volume 96.9 fL (80-100) Mean Corpuscular Hemoglobin 32.7 pg (25-34) Mean Corpuscular Hemoglobin Concent 33.8 g/dl (32-36) Platelet Count 168 K/uL (130-400) Mean Platelet Volume 10.7 fL (7.4-10.4) Neutrophils (%) (Auto) 69.2 % Lymphocytes (%) (Auto) 19.6 % Monocytes (%) (Auto) 6.5 % Eosinophils (%) (Auto) 3.8 % Basophils (%) (Auto) 0.5 % Neutrophils # (Auto) 5.68 K/uL (1.4-6.5) Lymphocytes # (Auto) 1.61 K/uL (1.2-3.4) Monocytes # (Auto) 0.53 K/uL (0.11-0.59) Eosinophils # (Auto) 0.31 K/uL (0-0.5) Basophils # (Auto) 0.04 K/uL (0-0.2) RDW Standard Deviation 46.7 fL (36.4-46.3) RDW Coefficient of Variation 13.7 % (11.5-14.5) Immature Granulocyte % (Auto) 0.4 % Immature Granulocyte # (Auto) 0.03 K/uL (0.00-0.02) Prothrombin Time 10.3 SECONDS (9.0-12.0) Prothromb Time International Ratio 1.0 (0.9-1.1) Activated Partial Thromboplast Time 23.0 SECONDS (21.0-31.0) Partial Thromboplastin Ratio 0.9 Est Creatinine Clear Calc Drug Dose 85.2 ml/min Estimated GFR () 65.9 Estimated GFR (Non- 56.9 BUN/Creatinine Ratio 16.5 (10-20) Calcium Level 9.1 mg/dl (8.5-10.1) Magnesium Level 1.6 mg/dl (1.8-2.4) Total Bilirubin 0.4 mg/dl (0.2-1) Aspartate Amino Transf (AST/SGOT) 16 U/L (15-37) Alanine Aminotransferase (ALT/SGPT) 30 U/L (12-78) Alkaline Phosphatase 70 U/L (45-117) Troponin I < 0.015 ng/ml (0-0.045) Pro-B-Type Natriuretic Peptide 32 pg/ml (0-900) Total Protein 7.4 gm/dl (6.4-8.2) Albumin 3.9 gm/dl (3.4-5.0) Globulin 3.5 gm/dl (2.5-4.0) Albumin/Globulin Ratio 1.1 (0.9-2) Bedside Hemoglobin 14.6 g/dl (14.0-18.0) Bedside Hematocrit 43 % (42-52) Bedside Sodium 139 mEq/L (135-144) Bedside Potassium 4.6 mEq/L (3.3-5.0) Bedside Chloride 99 mEq/L (101-112) Bedside Total CO2 29 mEq/l (24-31) Anion Gap 17.0 mmol/L (16-25) Bedside Blood Urea Nitrogen 24 mg/dl (7-18) Bedside Creatinine 1.2 mg/dl (0.6-1.3) Bedside Glucose (other) 291 mg/dl (70-99) Bedside Ionized Calcium (Alicia) 1.20 mmol/l (1.12-1.32) Urine Color YELLOW Urine Appearance CLEAR (CLEAR) Urine pH 5.0 (4.5-7.5) Urine Specific [place] > 1.045 (1.000-1.030) Urine Protein NEG (NEG) Urine Glucose (UA) 2+ (NEG) Urine Ketones TRACE (NEG) Urine Occult Blood NEG (NEG) Urine Nitrite NEG (NEG) Urine Bilirubin NEG (NEG) Urine Urobilinogen NEG (NEG) Urine Leukocyte Esterase NEG (NEG) Laboratory results per my review. Medications Administered Medications (Trade) Dose Ordered Sig/Gissell Route Start Time Stop Time Status Last Admin Dose Admin Sodium Chloride 1,000 ml @ 999 mls/hr Q1H1M STAT IV 10/25/17 18:19 10/25/17 19:19 DC 10/25/17 19:01 999 MLS/HR Heparin Sodium/ Dextrose (Heparin 25,000 Unit/500ml D5W) 25,000 unit STK-MED ONCE .ROUTE 10/25/17 20:04 10/25/17 20:05 DC 10/25/17 20:10 25,000 UNIT Heparin Sodium (Porcine) (Heparin Sq 5000 Unit/0.5ml) 5,000 unit STK-MED ONCE .ROUTE 10/25/17 20:04 10/25/17 20:05 DC 10/25/17 20:10 5,000 UNIT Insulin Glargine (Lantus Solostar Pen) 20 units 2045 ONCE SC 10/25/17 20:45 10/25/17 20:46 DC 10/25/17 20:57 20 UNITS Oxycodone/ Acetaminophen (Percocet 5-325mg Tab) 2 tab Q4H PRN PO 10/25/17 20:45 11/08/17 20:44 10/25/17 20:55 2 TAB ECG Per My Interpretation Indication: SOB/dyspnea Rate (beats per minute): 91 Rhythm: normal sinus Findings: other (normal axis. no PVCs.) ED Course ED COURSE: Vital signs were reviewed and showed tachycardia. The patients medical record was reviewed The above diagnostic studies were performed and reviewed. ED treatments and interventions as stated above. 1811: The patient was evaluated in room A10. A complete history and physical examination was performed. 1818: Ordered Sodium Chloride 1000 ml @ 999 mls/hr IV. 1824: I reviewed the patient's US, which showed extensive DVT throughout RLE. 1829: Ordered Ioversol 100 ml IV. 1934: I reevaluated and updated the patient. 1940: Ordered Heparin Sodium/Dextrose 1 ea. 1947: I reviewed the patient's case with Juancarlos Hogan PA-C, [facility]. He will evaluate the patient . 1950: I updated the patient. I discussed my findings with the patient and he understands and agrees with the treatment plan. 1955: I discussed the case again with Juancarlos Hogan PA-C, [facility]. He is agreeable to admittance. 2003: I reviewed the patient's case with Dr. Allen, [facility] hospitalist. He will evaluate the patient for further management. Based on the patients age, coexisting illnesses, exam and lab findings the decision to treat as an inpatient was made. The patient remained stable while under my care. The patient will be evaluated for further management. Medical Decision Differential diagnoses includes but is not limited to pneumonia, bronchitis, COPD/Asthma exacerbation, pneumothorax, pulmonary embolism, congestive heart failure, acute coronary syndrome. Patient is a 62-year-old male who presents the ER for extensive right lower extremity DVT referred in by orthopedics. He does admit to some shortness of breath. He was tachycardic. With the extent of DVT I did perform a CT PE which showed a saddle pulmonary embolism. There is no right heart strain. CBC along with BMP was unremarkable. Troponin was negative. BNP was negative. UA was unremarkable. Consult branch lead discussed with them on 2 separate occasions. Discussed with hospitalist well. They are comfortable keeping the patient here as there is no right heart strain evident on CT and a negative troponin. Patient was explained on 2 separate occasions the risks and benefits of heparin. He denies any vomiting blood, coughing up blood, urinating blood or recent trauma or surgeries. No previous brain bleeds. He was given a bolus of heparin and placed on heparin drip and admitted to internal medicine in the ICU. Medication Reconcilliation Current Medication List: was personally reviewed by me Blood Pressure Screening Patient's blood pressure: Normal blood pressure Blood pressure disposition: Did not require urgent referral Consults Time Called: 1939 Consulting Physician: Juancarlos Hogan PA-C, [facility] Returned Call: 1947 1947: I reviewed the patient's case with Juancarlos Hogan PA-C, [facility]. He will evaluate the patient . 1955: I discussed the case again with Juancarlos Hogan PA-C, [facility]. He is agreeable to admittance. Additional Consults: Time Called: 1949 Consulted Physician: [facility] hospitalist Returned Call: 2003 Additional Comments: 2003: I reviewed the patient's case with [facility]. He will evaluate the patient for further management. Impression Primary Impression: Saddle embolism of pulmonary artery Additional Impression: DVT (deep venous thrombosis) Critical Care I have personally spent 35 minutes of critical care time in the direct management of this patient. This includes bedside care, interpretation of diagnostic studies, and testing, discussion with consultants, patient, and family members, and other required patient management activities. This 35 minutes is in excess of all separately billable procedures. Scribe Attestation The scribe's documentation has been prepared under my direction and personally reviewed by me in its entirety. I confirm that the note above accurately reflects all work, treatment, procedures, and medical decision making performed by me. Departure Information Dispostion Being Evaluated By Hospitalist Referrals Nghia Elizabeth M.D. (PCP) Patient Instructions [facility] Problem Qualifiers Primary Impression: Saddle embolism of pulmonary artery Chronicity: acute Acute cor pulmonale presence: without acute cor pulmonale Qualified Codes: I26.92 - Saddle embolus of pulmonary artery without acute cor pulmonale Additional Impression: DVT (deep venous thrombosis) DVT location: lower extremity Affected thrombotic vein of extremity: femoral Chronicity: acute Laterality: right Qualified Codes: I82.411 - Acute embolism and thrombosis of right femoral vein
[2017-10-26] MEDS ORDERED: MAGNESIUM SULFATE 1GM / D5W 100 ML IV STA (00:29)
[2017-10-26 02:44] LABS: PTT PATIENT 34.6 SECONDS (21.0-31.0)
[2017-10-26 02:59] LABS: CKMB 1.7 ng/ml (0.5-3.6)
--- NOTE | 2017-10-26 03:07 | HISTORY & PHYSICAL EXAMINATION ---
DATE OF ADMISSION: 10/25/2017 IM ATTENDING : Patient seen and examined. History obtained from patient. Preceding documentation by RAE Zavala, reviewed. FINAL ASSESSMENT AND PLAN as follow: 1. Acute pulmonary thrombusembolism Saddle emboli on CT, no cardiac strain. recent right lower extremity surgery. 2. Hypertension, blood pressure stable. 3. DM2, on oral meds, suboptimal control. Recent A1c from last year was 9.3. 4. Rheumatoid arthritis on chronic methotrexate, prednisone rx. ICU monitoring 2D echo saddle PE, ro RV strain. IV heparin. Pulmonary consult RE Saddle PE Defer discussion regarding regarding choice of oral anticoagulation on discharge between patient and AM providers. Basal insulin, ISS BG goal 140-180, check HgA1c. DVT prophylaxis, Heparin. Full code. MTDD
[2017-10-26] MEDS ORDERED: HEPARIN IV BOLUS 8,000 UNIT in SYRINGE 0 ML IV ONE (03:30)
[2017-10-26 04:36] LABS: BASO % 1.3 %; BASO ABS # 0.09 K/uL (0-0.2); EOS % 5.8 %; HEMATOCRIT 39.3 % (42-52); HEMOGLOBIN 13.1 g/dL (14.0-18.0); IG# 0.03 K/uL (0.00-0.02); LYMPH % 30.3 %; LYMPH ABS # 2.08 K/uL (1.2-3.4); MEAN CELL VOLUME 96.6 fL (80-100); MEAN CORPUSCULAR HEMOGLOBIN 32.2 pg (25-34); MEAN CORPUSCULAR HGB CONC 33.3 g/dl (32-36); MEAN PLATELET VOLUME 10.6 fL (7.4-10.4); MONO % 7.4 %; MONO ABS # 0.51 K/uL (0.11-0.59); NEUT % 54.8 %; NEUT ABS # 3.76 K/uL (1.4-6.5); PLATELET COUNT 145 K/uL (130-400); RED CELL DISTRIBUTION WIDTH CV 13.7 % (11.5-14.5); RED CELL DISTRIBUTION WIDTH SD 46.8 fL (36.4-46.3); WHITE BLOOD COUNT 6.87 K/uL (4.8-10.8)
[2017-10-26 04:56] LABS: BLOOD UREA NITROGEN 18 mg/dl (7-18); CALCIUM 8.5 mg/dl (8.5-10.1); CARBON DIOXIDE 24 mmol/L (21-32); CREATININE 0.98 mg/dl (0.60-1.40); GLUCOSE 214 mg/dl (70-99); POTASSIUM 4.1 mmol/L (3.5-5.1); SODIUM 137 mmol/L (136-145)
[2017-10-26] MEDS ORDERED: PNEUMOCOCCAL POLYSACCHARIDES 25 MCG/0.5 ML VIAL/SYR IM. ONE (06:45)
[2017-10-26] MEDS ORDERED: PNEUMOCOCCAL ADMINISTRATION CHARGE ONE (06:45)
[2017-10-26 07:19] LABS: HEMOGLOBIN A1C 9.6 % (4.5-5.6)
[2017-10-26] MEDS: OLMESARTAN MEDOXOMIL 20 MG TAB PO SCH (07:56)
[2017-10-26] MEDS: PANTOprazole SOD 40 MG TAB PO SCH (07:56)
[2017-10-26] MEDS: INSULIN ASPART 100 UNITS/ML 3 ML PEN SC SCH ×4 (07:58→21:01)
[2017-10-26] MEDS: HEPARIN 25,000 UNIT/500ML D5W 500 ML IV SCH ×2 (08:00→19:23)
[2017-10-26] MEDS: OXYCODONE/ACETAMINOPHEN 5-325 TAB PO PRN ×3 (09:10→22:30)
[2017-10-26 09:41] LABS: PTT PATIENT 52.2 SECONDS (21.0-31.0)
[2017-10-26] MEDS ORDERED: PHARMACY GLYCEMIC MGMT CONSULT PRN (12:45)
[2017-10-26] MEDS ORDERED: INSULIN GLARGINE SOLOSTAR 100 UNITS/ML 3 ML PEN SC ONE (13:00)
--- NOTE | 2017-10-26 13:07 | Pharmacy Progress Note ---
Pharmacy Glycemic Short Note 2 Date of Service Oct 26, 2017. OUTPATIENT ANTIDIABETIC REGIMEN: * Janumet XR 2gm PO daily * A1c = 9.6% ASSESSMENT: * Poorly controlled type 2 diabetic admitted for DVT / saddle PE * BSGs have been running in the 200's despite the current basal/bolus regimen * Will up the current Lantus dose as it appears he remains hyperglycemic despite receiving 20 units of Lantus last PM, fasting BSG 216 this AM * Will base new doses upon an anticipated total daily insulin requirement of 60- 70 units/day (0.5units/kg/day) PLAN FOR INPATIENT GLYCEMIC CONTROL: * Hold outpatient oral diabetes medications * Basal insulin * Lantus 10 units SQ x 1 now. Will continue the Lantus 20 units Q HS tonight, but will likely increase this dose to 30 units Q HS tomorrow * Bolus insulin * NovoLog per scale ACHS and at 0000 + 0400 tonight * Goal Range: Low 120 mg/dL - High 150 mg/dL (reduced range) * Correction Factor: 20 mg/dL/unit (increase in dose) * Nutritional / Prandial insulin per carb ratio of 1 unit per 8 grams CHO consumed (increase in dose) PLAN FOR DISCHARGE: * to be determined
--- NOTE | 2017-10-26 15:02 | ECHOCARDIOGRAM REPORT ---
*NOTICE TO RECEIVING DEMOCRAT AGENCY This information is strictly Confidential and protected under [place] law. [place] law prohibits you from making any further disclosure of this information unless further disclosure is expressly permitted by the written consent of the person to whom it pertains or is authorized by law. A general authorization for the release of medical or other information is not sufficient for this purpose. Hospital accepts no responsibility if the information is made available to any other person, INCLUDING THE PATIENT. Interpretation Summary * Name: EZEQUIEL MOLINA Study Date: 10/26/2017 09:19 AM BP: 126/88 mmHg * [facility] HR: 89 * : 1955 (M/d/yyyy) Gender: Male Height: 74 in * Age: 62 yrs Ethnicity: [place] Weight: 304 lb * Ordering Physician: Nghia Allen * Referring Physician: Nghia Elizabteh * Performed By: Jaimee Spencer RDCS * * Reason For Study: SADDLE PE, R/O RV STRAIN * BSA: 2.6 m2 * The study was technically adequate. * There is no comparison study available. * -- Conclusions -- * Ejection Fraction = 60-65%. * There is moderate concentric left ventricular hypertrophy. * The right ventricle is normal size. * The right ventricular systolic function is normal as assessed by tricuspid annular plane systolic excursion (TAPSE) (normal >1.5 cm). * Moderate focal calcification of the right coronary aortic valve cusp. * Aortic valve sclerosis moderate, without significant aortic valvular stenosis. Procedure Details * A complete two-dimensional transthoracic echocardiogram was performed (2D, M-mode, Doppler and color flow Doppler). Left Ventricle * The left ventricle is normal in size. * There is no thrombus. * There is moderate concentric left ventricular hypertrophy. * The basal septum is thickened and angulated consistent with sigmoid septum. * Left ventricular systolic function is normal. * Ejection Fraction = 60-65%. * The left ventricular wall motion is normal. Right Ventricle * The right ventricle is normal size. * The right ventricular systolic function is normal as assessed by tricuspid annular plane systolic excursion (TAPSE) (normal >1.5 cm). Atria * The left atrium is moderately dilated. * Right atrial size is normal. * There is no evidence of atrial septal defect, but resolution does not allow assessment for a patent foramen ovale. Mitral Valve * The mitral valve is normal. * There is no mitral valve stenosis. * Significant mitral regurgitation is absent. Tricuspid Valve * The tricuspid valve is normal. * There is no tricuspid stenosis. * Significant tricuspid regurgitation is absent. Aortic Valve * Moderate focal calcification of the right coronary aortic valve cusp. * Aortic valve sclerosis moderate, without significant aortic valvular stenosis. * Aortic stenosis is absent. * There is no significant aortic regurgitation. Pulmonic Valve * The pulmonary valve is not well seen, but the Doppler examination is normal without significant regurgitation or stenosis. Great Vessels * The aortic root is normal size. Pericardium/Pleural * There is no pericardial effusion. Great Vessels * Normal inferior vena cava diameter and respiratory variation suggests normal central venous pressure. Left Ventricular Diastolic Function * Grade I diastolic dysfunction, (abnormal relaxation pattern). MMode 2D Measurements and Calculations IVSd 1.5 cm IVSs 2.2 cm LVIDd 5.5 cm LVIDs 2.8 cm LVPWd 1.5 cm LVPWs 1.8 cm IVS/LVPW 10 FS 49.1 % EDV(Teich) 150.4 ml ESV(Teich) 30.2 ml EF(Teich) 79.9 % EDV(cubed) 170.8 ml ESV(cubed) 22.5 ml EF(cubed) 86.8 % % IVS thick 43.4 % % LVPW thick 18.0 % LV mass(C)d 391.5 grams LV mass(C)dI 150.8 grams/m\S\2 LV mass(C)s 248.1 grams LV mass(C)sI 95.6 grams/m\S\2 SV(Teich) 120.2 ml SI(Teich) 46.3 ml/m\S\2 SV(cubed) 148.2 ml SI(cubed) 57.1 ml/m\S\2 Ao root diam 3.8 cm Ao root area 11.1 cm\S\2 LA dimension 4.6 cm LA/Ao 1.2 LVAd ap4 36.1 cm\S\2 LVLd ap4 9.0 cm EDV(MOD-sp4) 116.5 ml EDV(sp4-el) 123.1 ml LVAs ap4 22.0 cm\S\2 LVLs ap4 7.6 cm ESV(MOD-sp4) 53.0 ml ESV(sp4-el) 54.1 ml EF(MOD-sp4) 54.5 % EF(sp4-el) 56.0 % LVAd ap2 31.7 cm\S\2 LVLd ap2 8.8 cm EDV(MOD-sp2) 96.2 ml EDV(sp2-el) 97.3 ml LVAs ap2 19.1 cm\S\2 LVLs ap2 7.5 cm ESV(MOD-sp2) 42.1 ml ESV(sp2-el) 41.3 ml EF(MOD-sp2) 56.3 % EF(sp2-el) 57.5 % LVLd %diff -2.53 % EDV(MOD-bp) 107.7 ml LVLs %diff -1.64 % ESV(MOD-bp) 47.7 ml EF(MOD-bp) 55.7 % SV(MOD-sp4) 63.5 ml SI(MOD-sp4) 24.5 ml/m\S\2 SV(MOD-sp2) 54.1 ml SI(MOD-sp2) 20.8 ml/m\S\2 SV(MOD-bp) 60.1 ml SI(MOD-bp) 23.1 ml/m\S\2 SV(sp4-el) 69.0 ml SI(sp4-el) 26.6 ml/m\S\2 SV(sp2-el) 56.0 ml SI(sp2-el) 21.6 ml/m\S\2 Doppler Measurements and Calculations MV E max nikolas 58.1 cm/sec MV A max nikolas 86.2 cm/sec MV E/A 0.67 MV dec time 0.24 sec Ao V2 max 215.7 cm/sec Ao max PG 18.6 mmHg Ao max PG (full) 14.9 mmHg Ao V2 mean 150.7 cm/sec Ao mean PG 10.3 mmHg Ao mean PG (full) 8.1 mmHg Ao V2 VTI 43.4 cm LV V1 max PG 3.7 mmHg LV V1 mean PG 2.2 mmHg LV V1 max 96.4 cm/sec LV V1 mean 69.6 cm/sec LV V1 VTI 19.1 cm SV(Ao) 481.0 ml SI(Ao) 185.3 ml/m\S\2
[2017-10-26] MEDS ORDERED: WARFARIN SOD 7.5 MG TAB PO SCH (16:00)
--- NOTE | 2017-10-26 16:06 | Progress Note ---
Internal Med Progress Note Date of Service: Oct 26, 2017. Provider Documentation: SUBJECTIVE: Denies of any complaint of chest pain, no dyspnea on exertion Mentions that since he has been admitted, feels chest heaviness when lying down Symptoms resolved as he sits up on chair No dizzy spell or lightheadedness No cough or hemoptysis No fever or chills OBJECTIVE: Vital Signs-as noted below Exam: General-no sign of distress, pleasant, conversant Eyes-sclera nonicteric, pupils bilateral equal reactive to light extraocular muscle in ENT-moist oral mucosa Neck-no JVD, neck supple, no carotid bruit, no thyromegaly, trachea midline Lungs-clear to auscultate, no wheeze or rales Heart-regular S1 and S2 no murmur gallop Abdomen-soft nontender, no organomegaly, bowel sounds active Extremities-+3-4 pitting edema on right lower extremity, and varicose vein on the right calf Normal study on left lower extremity Neuro-no focal neurological deficit Psych-alert awake oriented 3, normal mood and affect Lymph nodes-no lymphadenopathy Lab data as noted below. ASSESSMENT & PLAN: ACUTE PULMONARY EMBOLISM WITH SADDLE EMBOLI -Status post recent right Achilles tendon repair on 09/15 -Sent to ED by orthopedic physician for evaluation of right lower extremity DVT -Patient reports of increasing swelling in his right leg for the past 1 week -Associated with shortness of breath -Outpatient lower extremity ultrasound shows significant DVT in the right lower external -CT of chest shows extensive bilateral acute pulmonary emboli including a saddle pulmonary emboli involving the origin of right and left pulmonary arteries - was started with IV heparin weight based put -Monitored overnight in ICU for close monitoring of hemodynamics/with concern for possible right straight -Patient's vitals remained stable, no hypoxia -Good oxygenation in room air -Echo shows no evidence of right heart strain, normal RV function Started with p.o. Coumadin today, goal INR 2-3 -Appreciate input from critical care -Patient will need anticoagulation uninterrupted for at least 6 months ( provoked DVT PE in setting of recent orthopedic surgery) Clinically stable to be transferred to telemetry TYPE 2 DIABETES -Poorly controlled, hemoglobin A1c more than 9 (patient is on chronic prednisone for history RA) -Appreciate pharmacy input from glycemic management -Continue with basal insulin and insulin sliding scale RHEUMATOID ARTHRITIS -No flare noted -Outpatient methotrexate and oral prednisone DVT PROPHYLAXIS IV heparin weight-based protocol/Coumadin CODE STATUS: Full code DISPOSITION Expect to be discharged home when medically stable patient will be discharged on oral Coumadin Will need follow-up with family physician for PT INR monitoring and Coumadin dose adjustment Vital Signs: Date Time Temp Pulse Resp B/P (MAP) Pulse Ox O2 Delivery O2 Flow Rate FiO2 10/27/17 15:15 36.8 86 18 117/68 (84) 93 Room Air 10/27/17 12:27 36.6 88 17 112/75 (87) 94 10/27/17 08:00 Room Air 10/27/17 07:04 36.7 87 18 141/87 (105) 94 Nasal Cannula 10/27/17 03:48 36.8 83 18 132/89 (103) 93 Room Air 10/27/17 00:04 36.8 84 18 124/83 (97) 95 Room Air 10/26/17 20:00 Room Air 10/26/17 19:46 36.6 88 20 95/57 (70) 93 Room Air Lab Results: Results Past 24 Hours Test 10/26/17 20:49 10/27/17 00:08 10/27/17 05:55 10/27/17 06:26 Range/Units Bedside Glucose 211 205 181 70-99 mg/dl Prothrombin Time 10.6 9.0-12.0 SECONDS Prothromb Time International Ratio 1.0 0.9-1.1 Activated Partial Thromboplast Time 47.4 21.0-31.0 SECONDS Partial Thromboplastin Ratio 1.8 Test 10/27/17 07:32 10/27/17 11:10 Range/Units Bedside Glucose 197 160 70-99 mg/dl
[2017-10-26] MEDS: INSULIN GLARGINE SOLOSTAR 100 UNITS/ML 3 ML PEN SC SCH (21:02)
[2017-10-27] VITALS (7 sets, daily range): BP systolic 112–141; BP diastolic 68–89; PULSE 83–89; TEMP 36.6–36.8; O2SAT 93–95
[2017-10-27] MEDS: INSULIN ASPART 100 UNITS/ML 3 ML PEN SC SCH ×6 (00:20→20:52)
[2017-10-27] MEDS: HEPARIN 25,000 UNIT/500ML D5W 500 ML IV SCH ×2 (06:34→17:57)
[2017-10-27 06:55] LABS: PTT PATIENT 47.4 SECONDS (21.0-31.0)
[2017-10-27] MEDS: PANTOprazole SOD 40 MG TAB PO SCH (07:46)
[2017-10-27] MEDS: METHOTREXATE 2.5 MG TAB PO SCH (07:46)
[2017-10-27] MEDS: OLMESARTAN MEDOXOMIL 20 MG TAB PO SCH (07:46)
[2017-10-27] MEDS: INSULIN GLARGINE SOLOSTAR 100 UNITS/ML 3 ML PEN SC SCH ×2 (07:47→20:53)
--- NOTE | 2017-10-27 08:18 | DIAGNOSTIC IMAGING REPORT ---
CHEST ONE VIEW PORTABLE CLINICAL HISTORY: 62 years-old Male presenting with SOB/CHF, pulmonary emboli. TECHNIQUE: Portable upright AP view of the chest was obtained. COMPARISON: 10/25/2017. FINDINGS: Cardiac silhouette mildly enlarged. Prominence of the bilateral aaron, which correlates with prominent vasculature on CTA from 10/25/2017. No focal opacity. No large effusion or pneumothorax. IMPRESSION: 1. Mild cardiomegaly with pulmonary vascular prominence. This is likely due to known the bilateral extensive pulmonary emboli. 2. No focal infiltrate to suggest developing infarct. Electronically signed by: Aravind Ruiz M.D. 10/27/2017 8:17 AM Dictated Date/Time: 10/27/2017 8:03 AM
--- NOTE | 2017-10-27 10:07 | Pharmacy Progress Note ---
Pharmacy Glycemic Short Note 2 Date of Service Oct 27, 2017. OUTPATIENT ANTIDIABETIC REGIMEN: * Janumet XR 2gm PO daily * A1c = 9.6% ASSESSMENT: 10/27/17 * BSGs have ranged 181-289 over the last 24 hours * He has received 58 units of insulin * Fasting BSG 197 this AM w/ 30 units of Lantus on board and after receiving 5 units of Novolog correction overnight - he likely requires 30+ units of Lantus per day with current stressors - will continue the same * Post-prandial BSGs did begin to fall after adjustments to CR and CF made yesterday - will continue the same today however lower the goal range further 10/26/17 * Poorly controlled type 2 diabetic admitted for DVT / saddle PE * BSGs have been running in the 200's despite the current basal/pTbolus regimen * Will up the current Lantus dose as it appears he remains hyperglycemic despite receiving 20 units of Lantus last PM, fasting BSG 216 this AM * Will base new doses upon an anticipated total daily insulin requirement of 60- 70 units/day (0.5units/kg/day) PLAN FOR INPATIENT GLYCEMIC CONTROL: * Hold outpatient oral diabetes medications * Basal insulin * Increase Lantus to 10 units Q AM + 20 units Q PM (increase dose) * Bolus insulin * NovoLog per scale ACHS and at 0200 tonight * Goal Range: Low 110 mg/dL - High 140 mg/dL (reduced range) * Correction Factor: 20 mg/dL/unit (no change) * Nutritional / Prandial insulin per carb ratio of 1 unit per 8 grams CHO consumed (no change) PLAN FOR DISCHARGE: * Pt's glycemic goals have not been met with outpt regimen of Janumet. Given the patient's significant daily insulin requirements and A1c > 9, perhaps he would benefit from the addition of a basal insulin at bedtime.
[2017-10-27] MEDS: OXYCODONE/ACETAMINOPHEN 5-325 TAB PO PRN ×2 (10:37→19:29)
--- NOTE | 2017-10-27 16:57 | Progress Note ---
Internal Med Progress Note Date of Service: Oct 27, 2017. Provider Documentation: SUBJECTIVE: had transient episode of SOB earlier this morning then as the day progressed , symptom had resolved ambulating in room , no hypoxia , in Room air , not requiring supplemental 02 no dizzy spell or lightheadedness OBJECTIVE: Vital Signs-as noted below Exam: General-no sign of distress, pleasant, conversant Eyes-sclera nonicteric, pupils bilateral equal reactive to light extraocular muscle in ENT-moist oral mucosa Neck-no JVD, neck supple, no carotid bruit, no thyromegaly, trachea midline Lungs-clear to auscultate, no wheeze or rales Heart-regular S1 and S2 no murmur gallop Abdomen-soft nontender, no organomegaly, bowel sounds active Extremities-+3-4 pitting edema on right lower extremity, and varicose vein on the right calf Normal study on left lower extremity Neuro-no focal neurological deficit Psych-alert awake oriented 3, normal mood and affect Lymph nodes-no lymphadenopathy Lab data as noted below. ASSESSMENT & PLAN: ACUTE PULMONARY EMBOLISM WITH SADDLE EMBOLI -Status post recent right Achilles tendon repair on 09/15 Patient reports of increasing swelling in his right leg for the past 1 week -Outpatient lower extremity ultrasound shows significant DVT in the right lower external -Associated with shortness of breath -Sent to ED by orthopedic physician for evaluation of right lower extremity DVT - -CT of chest shows extensive bilateral acute pulmonary emboli including a saddle pulmonary emboli involving the origin of right and left pulmonary arteries - was started with IV heparin weight based put - -Patient's vitals remained stable, no hypoxia -Good oxygenation in room air -Echo shows no evidence of right heart strain, normal RV function * Ejection Fraction = 60-65%. * There is moderate concentric left ventricular hypertrophy. * The right ventricle is normal size. * The right ventricular systolic function is normal as assessed by tricuspid annular plane systolic excursion (TAPSE) (normal >1.5 cm). * Moderate focal calcification of the right coronary aortic valve cusp. * Aortic valve sclerosis moderate, without significant aortic valvular stenosis. Started with p.o. Coumadin 7.5 mg X1 dose was given yesterday , goal INR 2- 3 -Patient will need anticoagulation uninterrupted for at least 6 months ( provoked DVT PE in setting of recent orthopedic surgery) will cont with IV heparin wt based protocol pt is reluctant for Lovenox SC Coumadin dose increased to 10 mg daily follow daily PT/INR TYPE 2 DIABETES -Poorly controlled, hemoglobin A1c more than 9 (patient is on chronic prednisone for history RA) -Appreciate pharmacy input from glycemic management -Continue with basal insulin and insulin sliding scale RHEUMATOID ARTHRITIS -No flare noted -Outpatient methotrexate and oral prednisone DVT PROPHYLAXIS IV heparin wt based protocol /Coumadin CODE STATUS: Full code DISPOSITION Expect to be discharged home when medically stable patient will be discharged on oral Coumadin Will need follow-up with family physician for PT INR monitoring and Coumadin dose adjustment Vital Signs: Date Time Temp Pulse Resp B/P (MAP) Pulse Ox O2 Delivery O2 Flow Rate FiO2 10/27/17 15:15 36.8 86 18 117/68 (84) 93 Room Air 10/27/17 12:27 36.6 88 17 112/75 (87) 94 10/27/17 08:00 Room Air 10/27/17 07:04 36.7 87 18 141/87 (105) 94 Nasal Cannula 10/27/17 03:48 36.8 83 18 132/89 (103) 93 Room Air 10/27/17 00:04 36.8 84 18 124/83 (97) 95 Room Air 10/26/17 20:00 Room Air 10/26/17 19:46 36.6 88 20 95/57 (70) 93 Room Air Lab Results: Results Past 24 Hours Test 10/26/17 20:49 10/27/17 00:08 10/27/17 05:55 10/27/17 06:26 Range/Units Bedside Glucose 211 205 181 70-99 mg/dl Prothrombin Time 10.6 9.0-12.0 SECONDS Prothromb Time International Ratio 1.0 0.9-1.1 Activated Partial Thromboplast Time 47.4 21.0-31.0 SECONDS Partial Thromboplastin Ratio 1.8 Test 10/27/17 07:32 10/27/17 11:10 Range/Units Bedside Glucose 197 160 70-99 mg/dl
[2017-10-27] MEDS: WARFARIN SOD 10 MG TAB PO SCH (17:49)
[2017-10-28] MEDS: OXYCODONE/ACETAMINOPHEN 5-325 TAB PO PRN ×4 (00:23→20:15)
[2017-10-28] MEDS ORDERED: INSULIN ASPART 100 UNITS/ML 3 ML PEN SC SCH (02:00)
[2017-10-28 04:26] VITALS: BP 127/88; PULSE 78; TEMP 36.8; O2SAT 96
[2017-10-28] MEDS: HEPARIN 25,000 UNIT/500ML D5W 500 ML IV SCH ×4 (05:40→15:44)
[2017-10-28 06:11] LABS: PTT PATIENT 40.6 SECONDS (21.0-31.0)
[2017-10-28 06:56] VITALS: BP 117/68; PULSE 71; TEMP 37; O2SAT 96
[2017-10-28] MEDS ORDERED: HEPARIN IV BOLUS 8,000 UNIT in SYRINGE 0 ML IV ONE (07:00)
[2017-10-28] MEDS: INSULIN ASPART 100 UNITS/ML 3 ML PEN SC SCH ×4 (07:49→21:02)
[2017-10-28] MEDS: INSULIN GLARGINE SOLOSTAR 100 UNITS/ML 3 ML PEN SC SCH ×2 (07:50→21:03)
[2017-10-28] MEDS: OLMESARTAN MEDOXOMIL 20 MG TAB PO SCH (07:53)
[2017-10-28] MEDS: PANTOprazole SOD 40 MG TAB PO SCH (07:53)
[2017-10-28] MEDS ORDERED: INSULIN GLARGINE SOLOSTAR 100 UNITS/ML 3 ML PEN SC ONE (08:15)
[2017-10-28 10:49] VITALS: BP 122/81; PULSE 85; TEMP 36.7; O2SAT 92
[2017-10-28] MEDS ORDERED: INSULIN ASPART 100 UNITS/ML 3 ML PEN SC ONE (12:15)
--- NOTE | 2017-10-28 12:26 | Pharmacy Progress Note ---
Glycemic: Assessment & Plan Date of Service Oct 28, 2017. Assessment & Plan Assessment * 62 yo M with poorly controlled T2DM on oral agent alone at home * BSG's yesterday were improved as compared to 10/26/17, but now with significant persistent elevations > 200 mg/dL today. Anticipate further increases as patient is on QOD prednisone and he did receive a dose today * Will increase Lantus * Will tighten Novolog to weight-based moderate stress estimate * Will add one overnight BSG check Plan * Basal insulin: Increase Lantus and adjust to BID based on BSG * 10 units for BSG < 110 mg/dL * 20 units for BSG 110-180 mg/dL * 30 units for BSG > 180 mg/dL * Correctional Insulin: Novolog Correction per scale ACHS - one overnight check Goal Range: Low 120 mg/dL - High 150 mg/dL Tighten Correction Factor: 15 mg/dL/unit * Prandial insulin: Tighten Per carb ratio of 1 unit per 6 grams CHO consumed Pharmacy will continue to monitor patient daily and write orders per [facility] inpatient glycemic control protocol. Thanks. * Please note that the plan above was derived based on current level of insulin resistance and hospital stress. These recommendations are appropriate for inpatient admission only. Plan of care upon discharge will need to be reassessed to avoid potential outpatient hypo/hyperglycemia.
[2017-10-28 13:50] LABS: PTT PATIENT 80.9 SECONDS (21.0-31.0)
[2017-10-28 15:12] VITALS: BP 110/75; PULSE 88; TEMP 36.5; O2SAT 92
[2017-10-28] MEDS: WARFARIN SOD 10 MG TAB PO SCH (15:49)
--- NOTE | 2017-10-28 18:17 | Progress Note ---
Internal Med Progress Note Date of Service: Oct 28, 2017. Provider Documentation: SUBJECTIVE: No complaint of chest pain or shortness of breath Ambulating independently in room No hypoxia No palpitation or dizzy spell OBJECTIVE: Vital Signs-as noted below Exam: General-no sign of distress, pleasant, conversant Eyes-sclera nonicteric, pupils bilateral equal reactive to light extraocular muscle in ENT-moist oral mucosa Neck-no JVD, neck supple, no carotid bruit, no thyromegaly, trachea midline Lungs-clear to auscultate, no wheeze or rales Heart-regular S1 and S2 no murmur gallop Abdomen-soft nontender, no organomegaly, bowel sounds active Extremities-+3-4 pitting edema on right lower extremity, and varicose vein on the right calf Normal study on left lower extremity Neuro-no focal neurological deficit Psych-alert awake oriented 3, normal mood and affect Lymph nodes-no lymphadenopathy Lab data as noted below. ASSESSMENT & PLAN: ACUTE PULMONARY EMBOLISM WITH SADDLE EMBOLI -Status post recent right Achilles tendon repair on 09/15 Patient reports of increasing swelling in his right leg for the past 1 week -Outpatient lower extremity ultrasound shows significant DVT in the right lower external -Associated with shortness of breath -Sent to ED by orthopedic physician for evaluation of right lower extremity DVT --CT of chest shows extensive bilateral acute pulmonary emboli including a saddle pulmonary emboli involving the origin of right and left pulmonary arteries - was started with IV heparin weight based put - -Patient's vitals remained stable, no hypoxia -Good oxygenation in room air -Echo shows no evidence of right heart strain, normal RV function * Ejection Fraction = 60-65%. * There is moderate concentric left ventricular hypertrophy. * The right ventricle is normal size. * The right ventricular systolic function is normal as assessed by tricuspid annular plane systolic excursion (TAPSE) (normal >1.5 cm). * Moderate focal calcification of the right coronary aortic valve cusp. * Aortic valve sclerosis moderate, without significant aortic valvular stenosis. Started with p.o. Coumadin 7.5 mg X1 dose was given yesterday , goal INR 2- 3 -Patient will need anticoagulation uninterrupted for at least 6 months ( provoked DVT PE in setting of recent orthopedic surgery) will cont with IV heparin wt based protocol pt is reluctant for Lovenox SC On Coumadin 10 mg p.o. daily/continue bridge therapy with IV heparin Patient will need overlapping IV heparin for 2 days while INR being therapeutic with Coumadin follow daily PT/INR TYPE 2 DIABETES -Poorly controlled, hemoglobin A1c more than 9 (patient is on chronic prednisone for history RA) -Appreciate pharmacy input from glycemic management -Continue with basal insulin and insulin sliding scale RHEUMATOID ARTHRITIS -No flare noted -Outpatient methotrexate and oral prednisone DVT PROPHYLAXIS IV heparin wt based protocol /Coumadin CODE STATUS: Full code DISPOSITION Expect to be discharged home when INR therapeutic patient will be discharged on oral Coumadin Will need follow-up with family physician for PT INR monitoring and Coumadin dose adjustment Vital Signs: Date Time Temp Pulse Resp B/P (MAP) Pulse Ox O2 Delivery O2 Flow Rate FiO2 10/28/17 15:12 36.5 88 10 110/75 (87) 92 Room Air 10/28/17 10:49 36.7 85 19 122/81 (95) 92 Room Air 10/28/17 08:00 Room Air 10/28/17 06:56 37.0 71 18 117/68 (84) 96 Room Air 10/28/17 04:26 36.8 78 18 127/88 (101) 96 Room Air 10/27/17 23:07 36.6 89 18 115/71 (86) 94 Room Air 10/27/17 20:17 36.6 87 20 113/77 (89) 94 Room Air 10/27/17 20:00 Room Air Lab Results: Results Past 24 Hours Test 10/27/17 20:20 10/28/17 02:04 10/28/17 05:47 10/28/17 07:35 Range/Units Bedside Glucose 180 217 226 70-99 mg/dl Prothrombin Time 10.6 9.0-12.0 SECONDS Prothromb Time International Ratio 1.0 0.9-1.1 Activated Partial Thromboplast Time 40.6 21.0-31.0 SECONDS Partial Thromboplastin Ratio 1.6 Test 10/28/17 10:52 10/28/17 13:07 10/28/17 16:13 Range/Units Bedside Glucose 233 271 70-99 mg/dl Activated Partial Thromboplast Time 80.9 21.0-31.0 SECONDS Partial Thromboplastin Ratio 3.1
[2017-10-28 19:09] VITALS: BP 123/82; PULSE 96; TEMP 36.4; O2SAT 95
[2017-10-28 20:35] LABS: PTT PATIENT 57.1 SECONDS (21.0-31.0)
[2017-10-28 23:39] VITALS: BP 108/65; PULSE 76; TEMP 36.6; O2SAT 95
[2017-10-29] VITALS (7 sets, daily range): BP systolic 101–136; BP diastolic 63–92; PULSE 87–93; TEMP 36.6–37.1; O2SAT 90–98
[2017-10-29] MEDS: HEPARIN 25,000 UNIT/500ML D5W 500 ML IV SCH ×3 (01:18→20:23)
[2017-10-29] MEDS ORDERED: INSULIN ASPART 100 UNITS/ML 3 ML PEN SC ONE (02:00)
[2017-10-29 06:42] LABS: HEMATOCRIT 40.2 % (42-52); HEMOGLOBIN 13.9 g/dL (14.0-18.0); MEAN CELL VOLUME 96.2 fL (80-100); MEAN CORPUSCULAR HEMOGLOBIN 33.3 pg (25-34); MEAN CORPUSCULAR HGB CONC 34.6 g/dl (32-36); MEAN PLATELET VOLUME 10.5 fL (7.4-10.4); PLATELET COUNT 168 K/uL (130-400); RED CELL DISTRIBUTION WIDTH CV 13.7 % (11.5-14.5); RED CELL DISTRIBUTION WIDTH SD 46.4 fL (36.4-46.3); WHITE BLOOD COUNT 6.36 K/uL (4.8-10.8)
[2017-10-29 06:57] LABS: INR 1.2 (0.9-1.1)
[2017-10-29 06:58] LABS: PTT PATIENT 66.2 SECONDS (21.0-31.0)
--- NOTE | 2017-10-29 07:35 | Progress Note ---
Post ICU Progress Note Date & Time Oct 29, 2017 at 07:33 Vital Signs Vital Signs Past 12 Hours Date Time Temp Pulse Resp B/P (MAP) Pulse Ox O2 Delivery O2 Flow Rate FiO2 10/29/17 04:01 37.0 88 18 136/87 (103) 97 Room Air 10/28/17 23:39 36.6 76 20 108/65 (79) 95 Room Air 10/28/17 20:00 Room Air Notes Mental Status: alert / awake Nausea / Vomiting: adequately controlled Pain: adequately controlled Airway Patency, RR, SpO2: stable & adequate BP & HR: stable & adequate Patient is a 62-year-old male who was initially admitted to the ICU with extensive bilateral pulmonary emboli with saddle component. He was hemodynamically stable and did not require immediate thrombolysis. He was placed in a heparin drip where he was monitored in the ICU throughout the night. The patient remained hemodynamically stable. He was subsequently downgraded from the ICU where he remains the telemetry unit at this point. On evaluation today, the patient is awake, alert, and oriented. He reports he did have an episode of shortness of breath yesterday, however he was walking the halls last evening and reports feeling no shortness of breath. He denies any pain at this time. He reports no changes in symptoms otherwise. He offers no complaints today. Consider outpatient follow up in 1 to 2 weeks with: PCP Repeat imaging needed: Per admitting services. Follow up cultures: None at this point. Reviewed progress notes, labs, and inpatient medication list Continue current management Additional recommendations: None at this time. Thank you for allowing us to participate in the care of this patient. At this time, Critical Care Services will sign off on this patient. Please feel free to reconsult as needed.
[2017-10-29] MEDS: INSULIN ASPART 100 UNITS/ML 3 ML PEN SC SCH ×4 (08:09→21:02)
[2017-10-29] MEDS: INSULIN GLARGINE SOLOSTAR 100 UNITS/ML 3 ML PEN SC SCH ×2 (08:10→21:03)
[2017-10-29] MEDS: OXYCODONE/ACETAMINOPHEN 5-325 TAB PO PRN ×3 (08:11→22:06)
[2017-10-29] MEDS: PANTOprazole SOD 40 MG TAB PO SCH (08:12)
[2017-10-29] MEDS: OLMESARTAN MEDOXOMIL 20 MG TAB PO SCH (08:12)
--- NOTE | 2017-10-29 14:04 | Pharmacy Progress Note ---
Glycemic: Assessment & Plan Date of Service Oct 29, 2017. Assessment & Plan Assessment * 62 yo M with poorly controlled T2DM on oral agent alone at home * Anticipate that patient's insulin needs will differ based on whether prednisone is administered in AM (persistent hyperglycemia yesterday when prednisone administered and a significant decrease in BSG from breakfast to lunch today 183 to 88 mg/dL when prednisone not administered) * Will decrease Lantus * Will loosen Novolog for today - may need to re-tighten tomorrow (when prednisone administered) Plan * Basal insulin: Decrease Lantus and adjust to BID based on BSG * 0 units for BSG < 120 mg/dL * 10 units for BSG 120-180 mg/dL * 20 units for BSG > 180 mg/dL * Correctional Insulin: Novolog Correction per scale ACHS - one overnight check Increase Goal Range: Low 120 mg/dL - High 160 mg/dL Loosen Correction Factor: 20 mg/dL/unit * Prandial insulin: Loosen Per carb ratio of 1 unit per 8 grams CHO consumed Pharmacy will continue to monitor patient daily and write orders per [facility] inpatient glycemic control protocol. Thanks. * Please note that the plan above was derived based on current level of insulin resistance and hospital stress. These recommendations are appropriate for inpatient admission only. Plan of care upon discharge will need to be reassessed to avoid potential outpatient hypo/hyperglycemia.
--- NOTE | 2017-10-29 14:54 | Progress Note ---
Internal Med Progress Note Date of Service: Oct 29, 2017. Provider Documentation: SUBJECTIVE: Has been doing okay, no chest pain or shortness of breath Tolerating anticoagulation well No bleeding complication OBJECTIVE: Vital Signs-as noted below Exam: General-no sign of distress, pleasant, conversant Eyes-sclera nonicteric, pupils bilateral equal reactive to light extraocular muscle in ENT-moist oral mucosa Neck-no JVD, neck supple, no carotid bruit, no thyromegaly, trachea midline Lungs-clear to auscultate, no wheeze or rales Heart-regular S1 and S2 no murmur gallop Abdomen-soft nontender, no organomegaly, bowel sounds active Extremities-+3-4 pitting edema on right lower extremity, and varicose vein on the right calf Normal study on left lower extremity Neuro-no focal neurological deficit Psych-alert awake oriented 3, normal mood and affect Lymph nodes-no lymphadenopathy Lab data as noted below. ASSESSMENT & PLAN: ACUTE PULMONARY EMBOLISM WITH SADDLE EMBOLI -Possible provoked episode -Status post recent right Achilles tendon repair on 09/15 Patient reports of increasing swelling in his right leg for the past 1 week/ associated with shortness of breath, dyspnea on exertion -Outpatient lower extremity ultrasound shows significant DVT in the right lower external -Sent to ED by orthopedic physician for evaluation of right lower extremity DVT --CT of chest shows extensive bilateral acute pulmonary emboli including a saddle pulmonary emboli involving the origin of right and left pulmonary arteries - started with IV heparin weight based /added Coumadin Goal INR 2-3 - -Patient's vitals remained stable, no hypoxia -Good oxygenation in room air -Echo shows no evidence of right heart strain, normal RV function * Ejection Fraction = 60-65%. * There is moderate concentric left ventricular hypertrophy. * The right ventricle is normal size. * The right ventricular systolic function is normal as assessed by tricuspid annular plane systolic excursion (TAPSE) (normal >1.5 cm). * Moderate focal calcification of the right coronary aortic valve cusp. * Aortic valve sclerosis moderate, without significant aortic valvular stenosis. -Patient will need anticoagulation uninterrupted for at least 6 months ( provoked DVT PE in setting of recent orthopedic surgery) will cont with IV heparin wt based protocol pt is reluctant for Lovenox SC Patient will need overlapping IV heparin for 2 days while INR being therapeutic with Coumadin follow daily PT/INR TYPE 2 DIABETES -Poorly controlled, hemoglobin A1c more than 9 (patient is on chronic prednisone for history RA) -Appreciate pharmacy input from glycemic management -Continue with basal insulin and insulin sliding scale RHEUMATOID ARTHRITIS -No flare noted -Outpatient methotrexate and oral prednisone DVT PROPHYLAXIS IV heparin wt based protocol /Coumadin CODE STATUS: Full code DISPOSITION Expect to be discharged home when INR therapeutic patient will be discharged on oral Coumadin Will need follow-up with family physician for PT INR monitoring and Coumadin dose adjustment Vital Signs: Date Time Temp Pulse Resp B/P (MAP) Pulse Ox O2 Delivery O2 Flow Rate FiO2 10/30/17 08:00 Room Air 10/30/17 07:03 36.7 82 19 134/94 (107) 94 Room Air 10/30/17 04:09 36.6 79 18 128/60 (82) 91 Room Air 10/30/17 00:01 Room Air 10/29/17 22:51 37.1 93 19 102/65 (77) 90 Room Air 10/29/17 19:18 36.7 87 18 115/73 (87) 98 Room Air 10/29/17 16:00 93 Room Air 10/29/17 15:08 36.6 87 18 105/72 (83) 93 Room Air 10/29/17 12:15 36.7 90 18 101/63 (76) 93 Room Air Lab Results: Results Past 24 Hours Test 10/29/17 11:36 10/29/17 16:17 10/29/17 20:33 10/30/17 06:47 Range/Units Bedside Glucose 178 155 196 70-99 mg/dl Prothrombin Time 13.4 9.0-12.0 SECONDS Prothromb Time International Ratio 1.3 0.9-1.1 Activated Partial Thromboplast Time 53.8 21.0-31.0 SECONDS Partial Thromboplastin Ratio 2.1 Test 10/30/17 07:32 Range/Units Bedside Glucose 186 70-99 mg/dl
[2017-10-29] MEDS: WARFARIN SOD 10 MG TAB PO SCH (16:32)
[2017-10-30] VITALS (7 sets, daily range): BP systolic 101–134; BP diastolic 42–94; PULSE 79–97; TEMP 36.6–37.1; O2SAT 91–94
[2017-10-30] MEDS: HEPARIN 25,000 UNIT/500ML D5W 500 ML IV SCH ×2 (07:09→17:51)
[2017-10-30 07:24] LABS: INR 1.3 (0.9-1.1)
[2017-10-30 07:28] LABS: PTT PATIENT 53.8 SECONDS (21.0-31.0)
[2017-10-30] MEDS: OLMESARTAN MEDOXOMIL 20 MG TAB PO SCH (08:09)
[2017-10-30] MEDS: PANTOprazole SOD 40 MG TAB PO SCH (08:10)
[2017-10-30] MEDS: INSULIN ASPART 100 UNITS/ML 3 ML PEN SC SCH ×4 (08:22→20:32)
[2017-10-30] MEDS: INSULIN GLARGINE SOLOSTAR 100 UNITS/ML 3 ML PEN SC SCH (08:23)
[2017-10-30] MEDS: OXYCODONE/ACETAMINOPHEN 5-325 TAB PO PRN ×3 (08:24→20:39)
--- NOTE | 2017-10-30 09:23 | Pharmacy Progress Note ---
Pharmacy Glycemic Short Note 2 Date of Service Oct 30, 2017. OUTPATIENT ANTIDIABETIC REGIMEN: * Janumet XR 2gm PO daily * A1c = 9.6% Test 10/29/17 11:36 10/29/17 16:17 10/29/17 20:33 10/30/17 07:32 Bedside Glucose 178 mg/dl (70-99) 155 mg/dl (70-99) 196 mg/dl (70-99) 186 mg/dl (70-99) ASSESSMENT: 10/30/17 * Mr. Ruffin received 98 units of insulin yesterday - no prednisone given * He will receive his prednisone 15 mg dose today (dosed q2days) * Estimating TDD to be at least 120 units for today. Will plan to give 40% of this as basal and 60% as prandial. 10/29/17 * 62 yo M with poorly controlled T2DM on oral agent alone at home * Anticipate that patient's insulin needs will differ based on whether prednisone is administered in AM (persistent hyperglycemia yesterday when prednisone administered and a significant decrease in BSG from breakfast to lunch today 183 to 88 mg/dL when prednisone not administered) * Will decrease Lantus * Will loosen Novolog for today - may need to re-tighten tomorrow (when prednisone administered) PLAN FOR INPATIENT GLYCEMIC CONTROL: * Continue to hold outpatient oral diabetes medications * Basal insulin - increase but will still be the same doses he received yesterday * Lantus 30 units in AM, 20 units in PM * Bolus insulin - tighten parameters * NovoLog per scale ACHS * Goal Range: Low 110 mg/dL - High 140 mg/dL * Correction Factor: 15 mg/dL/unit * Nutritional / Prandial insulin per carb ratio of 1 unit per 4 grams CHO consumed PLAN FOR DISCHARGE: * Pt's glycemic goals have not been met with outpt regimen of Janumet. Given the patient's significant daily insulin requirements and A1c > 9, perhaps he would benefit from the addition of a basal insulin at bedtime - would recommend Lantus (or Basaglar) 20 units qHS to start
[2017-10-30] MEDS ORDERED: WARFARIN SOD 10 MG TAB PO SCH (16:00)
--- NOTE | 2017-10-30 16:33 | Progress Note ---
Internal Med Progress Note Date of Service: Oct 30, 2017. Provider Documentation: SUBJECTIVE: Feels fine, no complaint of chest pain or shortness of breath No hypoxia No dizzy spell or lightheadedness OBJECTIVE: Vital Signs-as noted below Exam: General-no sign of distress, pleasant, conversant Eyes-sclera nonicteric, pupils bilateral equal reactive to light extraocular muscle in ENT-moist oral mucosa Neck-no JVD, neck supple, no carotid bruit, no thyromegaly, trachea midline Lungs-clear to auscultate, no wheeze or rales Heart-regular S1 and S2 no murmur gallop Abdomen-soft nontender, no organomegaly, bowel sounds active Extremities-+3-4 pitting edema on right lower extremity, and varicose vein on the right calf Normal study on left lower extremity Neuro-no focal neurological deficit Psych-alert awake oriented 3, normal mood and affect Lymph nodes-no lymphadenopathy Lab data as noted below. ASSESSMENT & PLAN: ACUTE PULMONARY EMBOLISM WITH SADDLE EMBOLI -Possible provoked episode -Status post recent right Achilles tendon repair on 09/15 Patient reports of increasing swelling in his right leg for the past 1 week/ associated with shortness of breath, dyspnea on exertion -Outpatient lower extremity ultrasound shows significant DVT in the right lower external -Sent to ED by orthopedic physician for evaluation of right lower extremity DVT --CT of chest shows extensive bilateral acute pulmonary emboli including a saddle pulmonary emboli involving the origin of right and left pulmonary arteries - started with IV heparin weight based /on Coumadin INR 1.3 Goal INR 2-3 - -Patient's vitals remained stable, no hypoxia -Good oxygenation in room air -Echo shows no evidence of right heart strain, normal RV function * Ejection Fraction = 60-65%. * There is moderate concentric left ventricular hypertrophy. * The right ventricle is normal size. * The right ventricular systolic function is normal as assessed by tricuspid annular plane systolic excursion (TAPSE) (normal >1.5 cm). * Moderate focal calcification of the right coronary aortic valve cusp. * Aortic valve sclerosis moderate, without significant aortic valvular stenosis. -Patient will need anticoagulation uninterrupted for at least 6 months ( provoked DVT PE in setting of recent orthopedic surgery) will cont with IV heparin wt based protocol pt is reluctant for Lovenox SC Patient will need overlapping IV heparin for 2 days while INR being therapeutic with Coumadin follow daily PT/INR TYPE 2 DIABETES -Poorly controlled, hemoglobin A1c more than 9 (patient is on chronic prednisone for history RA) -Appreciate pharmacy input from glycemic management -Continue with basal insulin and insulin sliding scale RHEUMATOID ARTHRITIS -No flare noted -Outpatient methotrexate and oral prednisone DVT PROPHYLAXIS IV heparin wt based protocol /Coumadin CODE STATUS: Full code DISPOSITION Expect to be discharged home when INR therapeutic patient will be discharged on oral Coumadin Will need follow-up with family physician for PT INR monitoring and Coumadin dose adjustment Vital Signs: Date Time Temp Pulse Resp B/P (MAP) Pulse Ox O2 Delivery O2 Flow Rate FiO2 10/31/17 16:00 90 Room Air 10/31/17 15:22 36.4 91 18 99/64 (76) 91 Room Air 10/31/17 08:30 90 Room Air 10/31/17 08:06 36.7 85 18 148/88 (108) 90 10/31/17 00:15 Room Air 10/30/17 20:00 37.1 86 18 126/77 (93) 93 Room Air 10/30/17 19:51 36.7 85 18 92 2.0 Lab Results: Results Past 24 Hours Test 10/30/17 20:30 10/31/17 06:42 10/31/17 06:43 10/31/17 08:03 Range/Units Bedside Glucose 133 158 70-99 mg/dl White Blood Count 6.74 4.8-10.8 K/uL Red Blood Count 4.13 4.7-6.1 M/uL Hemoglobin 13.7 14.0-18.0 g/dL Hematocrit 39.9 42-52 % Mean Corpuscular Volume 96.6 80-100 fL Mean Corpuscular Hemoglobin 33.2 25-34 pg Mean Corpuscular Hemoglobin Concent 34.3 32-36 g/dl RDW Standard Deviation 46.3 36.4-46.3 fL RDW Coefficient of Variation 13.5 11.5-14.5 % Platelet Count 169 130-400 K/uL Mean Platelet Volume 10.9 7.4-10.4 fL Prothrombin Time 15.4 9.0-12.0 SECONDS Prothromb Time International Ratio 1.5 0.9-1.1 Activated Partial Thromboplast Time 68.6 21.0-31.0 SECONDS Partial Thromboplastin Ratio 2.6 Test 10/31/17 11:28 10/31/17 16:55 Range/Units Bedside Glucose 239 218 70-99 mg/dl
[2017-10-30] MEDS: WARFARIN PO SCH ×2 (16:35)
[2017-10-30] MEDS ORDERED: INSULIN GLARGINE SOLOSTAR 100 UNITS/ML 3 ML PEN SC SCH (21:00)
[2017-10-31] MEDS: HEPARIN 25,000 UNIT/500ML D5W 500 ML IV SCH ×2 (03:53→15:08)
[2017-10-31 07:14] LABS: INR 1.5 (0.9-1.1)
[2017-10-31 07:24] LABS: PTT PATIENT 68.6 SECONDS (21.0-31.0)
[2017-10-31 08:06] VITALS: BP 148/88; PULSE 85; TEMP 36.7; O2SAT 90
[2017-10-31 08:30] VITALS: O2SAT 90
[2017-10-31] MEDS: PANTOprazole SOD 40 MG TAB PO SCH (08:30)
[2017-10-31] MEDS: OLMESARTAN MEDOXOMIL 20 MG TAB PO SCH (08:31)
[2017-10-31 08:32] LABS: HEMATOCRIT 39.9 % (42-52); HEMOGLOBIN 13.7 g/dL (14.0-18.0); MEAN CELL VOLUME 96.6 fL (80-100); MEAN CORPUSCULAR HEMOGLOBIN 33.2 pg (25-34); MEAN PLATELET VOLUME 10.9 fL (7.4-10.4); PLATELET COUNT 169 K/uL (130-400); RED CELL DISTRIBUTION WIDTH CV 13.5 % (11.5-14.5); RED CELL DISTRIBUTION WIDTH SD 46.3 fL (36.4-46.3); WHITE BLOOD COUNT 6.74 K/uL (4.8-10.8)
[2017-10-31] MEDS: INSULIN ASPART 100 UNITS/ML 3 ML PEN SC SCH ×4 (08:39→20:51)
[2017-10-31] MEDS: INSULIN GLARGINE SOLOSTAR 100 UNITS/ML 3 ML PEN SC SCH (08:40)
[2017-10-31] MEDS: OXYCODONE/ACETAMINOPHEN 5-325 TAB PO PRN ×2 (08:41→18:19)
[2017-10-31 08:53] LABS: MEAN CORPUSCULAR HGB CONC 34.3 g/dl (32-36)
--- NOTE | 2017-10-31 11:00 | Pharmacy Progress Note ---
Pharmacy Glycemic Short Note 2 Date of Service Oct 31, 2017. OUTPATIENT ANTIDIABETIC REGIMEN: * Janumet XR 2gm PO daily * A1c = 9.6% Test 10/30/17 16:15 10/30/17 16:17 10/30/17 20:30 10/31/17 08:03 Bedside Glucose 291 mg/dl (70-99) 273 mg/dl (70-99) 133 mg/dl (70-99) 158 mg/dl (70-99) Test 10/31/17 11:28 Bedside Glucose 239 mg/dl (70-99) ASSESSMENT: 10/31/17 * Mr. Ruffin received 125 units of insulin yesterday - prednisone dose was given * Postprandial BSGs were initially elevated but improved after CR tightening to 1 unit per 4 gm * No prednisone will be administered today. I initially loosened the CR for this reason and postprandial BSGs are elevated again. The patient has remained quite resistant to CHO intake without prednisone on board for today. * I also believe he needs some more basal on board since his fasting has been elevated. 10/30/17 * Mr. Ruffin received 98 units of insulin yesterday - no prednisone given * He will receive his prednisone 15 mg dose today (dosed q2days) * Estimating TDD to be at least 120 units for today. Will plan to give 40% of this as basal and 60% as prandial. 10/29/17 * 62 yo M with poorly controlled T2DM on oral agent alone at home * Anticipate that patient's insulin needs will differ based on whether prednisone is administered in AM (persistent hyperglycemia yesterday when prednisone administered and a significant decrease in BSG from breakfast to lunch today 183 to 88 mg/dL when prednisone not administered) * Will decrease Lantus * Will loosen Novolog for today - may need to re-tighten tomorrow (when prednisone administered) PLAN FOR INPATIENT GLYCEMIC CONTROL: * Continue to hold outpatient oral diabetes medications * Basal insulin - increase * Lantus 30 units in AM, 25 units in PM * Bolus insulin - tighten carb ratio * NovoLog per scale ACHS * Goal Range: Low 110 mg/dL - High 140 mg/dL * Correction Factor: 15 mg/dL/unit * Nutritional / Prandial insulin per carb ratio of 1 unit per 4 grams CHO consumed PLAN FOR DISCHARGE: * Pt's glycemic goals have not been met with outpt regimen of Janumet. Given the patient's significant daily insulin requirements and A1c > 9, perhaps he would benefit from the addition of a basal insulin at bedtime - would recommend Lantus (or Basaglar) 20 units qHS to start
[2017-10-31] MEDS: HYDROCODONE/ACETAMIN 5/325MG TAB PO PRN (13:59)
[2017-10-31 15:22] VITALS: BP 99/64; PULSE 91; TEMP 36.4; O2SAT 91
[2017-10-31 16:00] VITALS: O2SAT 90
[2017-10-31] MEDS: WARFARIN PO SCH ×2 (16:04)
[2017-10-31] MEDS ORDERED: WARFARIN SOD 3 MG TAB PO ONE (19:00)
--- NOTE | 2017-10-31 19:00 | Progress Note ---
Internal Med Progress Note Date of Service: Oct 31, 2017. Provider Documentation: SUBJECTIVE: Denies of any pain or discomfort No hypoxia Right lower extremity swelling has improved markedly Family visiting OBJECTIVE: Vital Signs-as noted below Exam: General-no sign of distress, pleasant, conversant Eyes-sclera nonicteric, pupils bilateral equal reactive to light extraocular muscle in ENT-moist oral mucosa Neck-no JVD, neck supple, no carotid bruit, no thyromegaly, trachea midline Lungs-clear to auscultate, no wheeze or rales Heart-regular S1 and S2 no murmur gallop Abdomen-soft nontender, no organomegaly, bowel sounds active Extremities-improved swelling of right lower extremity Normal study on left lower extremity Neuro-no focal neurological deficit Psych-alert awake oriented 3, normal mood and affect Lymph nodes-no lymphadenopathy Lab data as noted below. ASSESSMENT & PLAN: ACUTE PULMONARY EMBOLISM WITH SADDLE EMBOLI -Possible provoked episode -Status post recent right Achilles tendon repair on 09/15 Patient reports of increasing swelling in his right leg for the past 1 week/ associated with shortness of breath, dyspnea on exertion -Outpatient lower extremity ultrasound shows significant DVT in the right lower external -Sent to ED by orthopedic physician for evaluation of right lower extremity DVT --CT of chest shows extensive bilateral acute pulmonary emboli including a saddle pulmonary emboli involving the origin of right and left pulmonary arteries - started with IV heparin weight based /on Coumadin INR 1.3 - 1.5 Coumadin dose increased to 15 mg daily Goal INR 2-3 - -Patient's vitals remained stable, no hypoxia -Good oxygenation in room air -Echo shows no evidence of right heart strain, normal RV function * Ejection Fraction = 60-65%. * There is moderate concentric left ventricular hypertrophy. * The right ventricle is normal size. * The right ventricular systolic function is normal as assessed by tricuspid annular plane systolic excursion (TAPSE) (normal >1.5 cm). * Moderate focal calcification of the right coronary aortic valve cusp. * Aortic valve sclerosis moderate, without significant aortic valvular stenosis. -Patient will need anticoagulation uninterrupted for at least 6 months ( provoked DVT PE in setting of recent orthopedic surgery) will cont with IV heparin wt based protocol Discussed with pharmacy role for NOAC/Eliquis instead of Coumadin anticoagulation Given patient's BMI is almost near to 40 (Eliquis is contraindicated for a BMI over 40) Will be hard to assess effective therapeutic level Given his body weight 136.5 kg/BMI 38.6 Oral Coumadin with monitoring of PT/INR would be best anticoagulation option for this patient pt is reluctant for Lovenox SC bridge therapy Patient will need overlapping IV heparin for 2 days while INR being therapeutic with Coumadin follow daily PT/INR TYPE 2 DIABETES -Poorly controlled, hemoglobin A1c more than 9 (patient is on chronic prednisone for history RA) -Appreciate pharmacy input from glycemic management -Continue with basal insulin and insulin sliding scale RHEUMATOID ARTHRITIS -No flare noted -Outpatient methotrexate and oral prednisone DVT PROPHYLAXIS IV heparin wt based protocol /Coumadin CODE STATUS: Full code DISPOSITION Expect to be discharged home when INR therapeutic patient will be discharged on oral Coumadin Will need follow-up with family physician for PT INR monitoring and Coumadin dose adjustment Vital Signs: Date Time Temp Pulse Resp B/P (MAP) Pulse Ox O2 Delivery O2 Flow Rate FiO2 10/31/17 16:00 90 Room Air 10/31/17 15:22 36.4 91 18 99/64 (76) 91 Room Air 10/31/17 08:30 90 Room Air 10/31/17 08:06 36.7 85 18 148/88 (108) 90 10/31/17 00:15 Room Air 10/30/17 20:00 37.1 86 18 126/77 (93) 93 Room Air 10/30/17 19:51 36.7 85 18 92 2.0 Lab Results: Results Past 24 Hours Test 10/30/17 20:30 10/31/17 06:42 10/31/17 06:43 10/31/17 08:03 Range/Units Bedside Glucose 133 158 70-99 mg/dl White Blood Count 6.74 4.8-10.8 K/uL Red Blood Count 4.13 4.7-6.1 M/uL Hemoglobin 13.7 14.0-18.0 g/dL Hematocrit 39.9 42-52 % Mean Corpuscular Volume 96.6 80-100 fL Mean Corpuscular Hemoglobin 33.2 25-34 pg Mean Corpuscular Hemoglobin Concent 34.3 32-36 g/dl RDW Standard Deviation 46.3 36.4-46.3 fL RDW Coefficient of Variation 13.5 11.5-14.5 % Platelet Count 169 130-400 K/uL Mean Platelet Volume 10.9 7.4-10.4 fL Prothrombin Time 15.4 9.0-12.0 SECONDS Prothromb Time International Ratio 1.5 0.9-1.1 Activated Partial Thromboplast Time 68.6 21.0-31.0 SECONDS Partial Thromboplastin Ratio 2.6 Test 10/31/17 11:28 10/31/17 16:55 Range/Units Bedside Glucose 239 218 70-99 mg/dl
[2017-10-31] MEDS ORDERED: APIXABAN 5 MG TAB PO SCH (20:00)
[2017-10-31 20:17] VITALS: BP 103/65; PULSE 88; TEMP 36.7; O2SAT 90
[2017-10-31] MEDS ORDERED: INSULIN GLARGINE SOLOSTAR 100 UNITS/ML 3 ML PEN SC SCH (21:00)
[2017-10-31 22:40] VITALS: BP 91/53; PULSE 84; TEMP 36.6; O2SAT 94
[2017-11-01] MEDS: HEPARIN 25,000 UNIT/500ML D5W 500 ML IV SCH ×3 (00:08→20:47)
[2017-11-01 06:11] LABS: INR 1.4 (0.9-1.1)
[2017-11-01 07:22] LABS: PTT PATIENT 74.5 SECONDS (21.0-31.0)
[2017-11-01 07:37] VITALS: BP 129/77; PULSE 83; TEMP 36.7; O2SAT 92
[2017-11-01] MEDS: PANTOprazole SOD 40 MG TAB PO SCH (07:51)
[2017-11-01] MEDS: OLMESARTAN MEDOXOMIL 20 MG TAB PO SCH (07:51)
[2017-11-01] MEDS: INSULIN ASPART 100 UNITS/ML 3 ML PEN SC SCH ×4 (08:58→20:47)
[2017-11-01] MEDS: HYDROCODONE/ACETAMIN 5/325MG TAB PO PRN (09:08)
[2017-11-01] MEDS ORDERED: INSULIN GLARGINE SOLOSTAR 100 UNITS/ML 3 ML PEN SC SCH ×2 (09:15→21:00)
--- NOTE | 2017-11-01 11:07 | Pharmacy Progress Note ---
Pharmacy Glycemic Short Note 2 Date of Service Nov 01, 2017. OUTPATIENT ANTIDIABETIC REGIMEN: * Janumet XR 2gm PO daily * A1c = 9.6% Item Value Date Time Bedside Glucose 158 mg/dl H 10/31/17 0803 Bedside Glucose 239 mg/dl H 10/31/17 1128 Bedside Glucose 218 mg/dl H 10/31/17 1655 Bedside Glucose 286 mg/dl H 10/31/17 2024 Bedside Glucose 208 mg/dl H 11/01/17 0748 Bedside Glucose 244 mg/dl H 11/01/17 1131 ASSESSMENT: 11/01/17 * Mr. Ruffin received 126 units of insulin yesterday. Patient remains on prednisone 15 mg every other day. * All BSGs over the past 24 hours were 200 mg/dL despite increasing both basal and bolus insulin. * Will increase daily dose by ~20% (anticipated needs of 150 units/day, equivalent to 38 units BID of basal CF/CR 12/23) 10/31/17 * Mr. Ruffin received 125 units of insulin yesterday - prednisone dose was given * Postprandial BSGs were initially elevated but improved after CR tightening to 1 unit per 4 gm * No prednisone will be administered today. I initially loosened the CR for this reason and postprandial BSGs are elevated again. The patient has remained quite resistant to CHO intake without prednisone on board for today. * I also believe he needs some more basal on board since his fasting has been elevated. 10/30/17 * Mr. Ruffin received 98 units of insulin yesterday - no prednisone given * He will receive his prednisone 15 mg dose today (dosed q2days) * Estimating TDD to be at least 120 units for today. Will plan to give 40% of this as basal and 60% as prandial. PLAN FOR INPATIENT GLYCEMIC CONTROL: * Continue to hold outpatient oral diabetes medications * Basal insulin - increase * Lantus 38 units in AM, 30 units in PM * Bolus insulin - tighten CF/CR * NovoLog per scale ACHS * Goal Range: Low 110 mg/dL - High 140 mg/dL * Correction Factor: 12 mg/dL/unit * Nutritional / Prandial insulin per carb ratio of 1 unit per 3 grams CHO consumed PLAN FOR DISCHARGE: * Pt's glycemic goals have not been met with outpt regimen of Janumet. 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 Other options with a low incidence of hypoglycemia are as follows: * empagliflozin 10 mg PO once daily in the morning (SGLT2 inhibitor) * exenatide extended release (Bydureon) 2 mg SQ once every 7 days or dulaglutide (Trulicity) 0.75 mg SQ once every 7 days --> if either exenatide or dulaglutide is selected, Janumet should be discontinued and replaced with metformin ER 2000 mg qPM * selection can be based on patient preference and insurance coverage * Isaac reported to CDE that he is agreeable to diet/lifestyle modifications. He was able to decrease his A1c from 9.3 to 8% in recent past with diet/ lifestyle modifications alone.
[2017-11-01 12:41] VITALS: Ht 188 cm; Wt 136.5 kg
[2017-11-01 14:11] LABS: PTT PATIENT 60.6 SECONDS (21.0-31.0)
[2017-11-01 16:00] VITALS: BP 97/55; PULSE 89; TEMP 36.8; O2SAT 90; O2SAT 92
[2017-11-01] MEDS ORDERED: WARFARIN SOD 5 MG TAB PO SCH (16:00)
[2017-11-01] MEDS: OXYCODONE/ACETAMINOPHEN 5-325 TAB PO PRN (18:31)
--- NOTE | 2017-11-01 21:46 | Progress Note ---
Medicine Progress Note Date & Time of Visit: Nov 01, 2017 at 15:20 . Subjective CC: Follow-up visit for pulmonary embolism, DVT, and other problems. HPI: Mild chest heaviness last night. No CP or SOB today. Right leg feels better. No abnormal bleeding. ROS: General- no fever, no chills Resp- as noted above in HPI Cardiac- as noted above in HPI GI- no nausea, no vomiting, no diarrhea, no constipation - no dysuria, no difficulty voiding . Objective Last 8 Hrs Date Time Temp Pulse Resp B/P (MAP) Pulse Ox O2 Delivery O2 Flow Rate FiO2 11/01/17 16:00 90 Room Air 11/01/17 16:00 36.8 89 20 97/55 (69) 92 Room Air Physical Exam: General- no distress Lungs- clear to auscultation; no respiratory distress Cardiovascular- RRR; no gallop appreciated; no JVD; trace right pretibial edema Abdomen- + bowel sounds, soft, nontender Extremities- no cyanosis; no calf tenderness Neuro- alert, oriented Skin- warm & dry . Laboratory Results: Last 24 Hours Test 11/01/17 05:20 11/01/17 07:48 11/01/17 11:31 11/01/17 13:38 Prothrombin Time 14.9 SECONDS Prothromb Time International Ratio 1.4 Activated Partial Thromboplast Time 74.5 SECONDS 60.6 SECONDS Partial Thromboplastin Ratio 2.9 2.3 Bedside Glucose 208 mg/dl 244 mg/dl Test 11/01/17 17:03 11/01/17 20:29 Bedside Glucose 255 mg/dl 191 mg/dl Assessment & Plan DVT / PE (present on admission) Probably provoked VTE (s/p repair Achilles tendon). Symptoms improved. Oxygenating well. INR still subtherapeutic. Titrate warfarin. Continue IV heparin. HYPERTENSION Continue olmesartan. DM TYPE 2 Pharmacy consulted for glycemic control. RA Continue prednisone. VTE PROPHYLAXIS Anticoagulants for acute VTE as noted above. DISPOSITION Expected discharge to home. . Current Inpatient Medications: Current Inpatient Medications Medications (Trade) Dose Ordered Sig/Gissell Route Start Time Stop Time Status Last Admin Dose Admin Glucose (Glucose 40% Gel) 15-30 GRAMS 15 GRAMS... UD PRN PO 10/25/17 20:45 11/24/17 20:44 Glucose (Glucose Chew Tab) 4-8 Tablets 4 Tabl... UD PRN PO 10/25/17 20:45 11/24/17 20:44 Dextrose (Dextrose 50% 50ML Syringe) 25-50ML 25ML FOR ... UD PRN IV 10/25/17 20:45 11/24/17 20:44 Glucagon (Glucagon Inj) 1 mg UD PRN IM 10/25/17 20:45 11/24/17 20:44 Carbohydrates (Carbohydrates For Hypoglycemia) 15-30 GRAMS 15 grams if BSG 54-69... UD PRN PO 10/25/17 20:45 11/24/17 20:44 Oxycodone/ Acetaminophen (Percocet 5-325mg Tab) 2 tab Q4H PRN PO 10/25/17 20:45 11/08/17 20:44 11/01/17 18:31 2 TAB Acetaminophen (Tylenol Tab) 650 mg Q4H PRN PO 10/25/17 22:30 11/24/17 22:29 Lorazepam (Ativan Inj) 0.5 mg Q4H PRN IV 10/25/17 22:30 11/24/17 22:29 Nitroglycerin (Nitrostat Tab) 0.4 mg UD PRN SL 10/25/17 22:30 11/24/17 22:29 Insulin Aspart (novoLOG ASPART) SLIDING SCALE If C... ACHS SC 10/26/17 06:45 11/25/17 06:44 11/01/17 20:47 5 UNITS Prochlorperazine Edisylate 5 mg/ Syringe 5 ml @ 5 mls/min Q6H PRN IV 10/25/17 22:30 11/24/17 22:29 Morphine Sulfate (MoRPHine SULFATE INJ) 4 mg Q3H PRN IV 10/25/17 22:30 11/08/17 22:29 Folic Acid (Folvite Tab) 1 mg QAM PO 10/26/17 09:00 11/25/17 08:59 11/01/17 07:52 1 MG Acetaminophen/ Hydrocodone Bitart ([place] 5/325 Tab) pain not relieved by tylenol Q4H PRN PO 10/25/17 22:30 11/08/17 22:29 11/01/17 09:08 2 TAB Methotrexate (Methotrexate Tab) 20 mg We@0900 PO 10/27/17 09:00 11/26/17 08:59 10/27/17 07:46 20 MG Olmesartan (Benicar Tab) 20 mg QAM PO 10/26/17 09:00 11/25/17 08:59 11/01/17 07:51 20 MG Prednisone (PredniSONE TAB) 15 mg Q2D@0900 PO 10/26/17 09:00 11/25/17 08:59 11/01/17 07:52 15 MG Pantoprazole Sodium (Protonix Tab) 40 mg QAM PO 10/26/17 09:00 11/25/17 08:59 11/01/17 07:51 40 MG Heparin Sodium/ Dextrose 500 ml @ 48 mls/hr [id number] IV 10/25/17 22:30 11/24/17 22:29 11/01/17 20:47 48 MLS/HR Miscellaneous Information (Consult Glycemic Management Pharmacy) 1 ea UD PRN N/A 10/26/17 12:45 11/25/17 12:44 Warfarin Sodium (Coumadin Tab) 15 mg DAILY@16 PO 11/01/17 16:00 12/01/17 15:59 11/01/17 16:07 15 MG Insulin Glargine (Lantus Solostar Pen) 38 units QAM SC 11/02/17 08:00 12/02/17 07:59 Future Hold Insulin Glargine (Lantus Solostar Pen) 30 units HS SC 11/01/17 21:00 12/01/17 20:59 11/01/17 20:46 30 UNITS
[2017-11-01 23:05] VITALS: BP 119/84; PULSE 84; TEMP 36.8; O2SAT 96
[2017-11-02] MEDS: OXYCODONE/ACETAMINOPHEN 5-325 TAB PO PRN ×4 (03:20→20:35)
[2017-11-02 06:18] LABS: HEMATOCRIT 39.9 % (42-52); HEMOGLOBIN 13.5 g/dL (14.0-18.0); MEAN CELL VOLUME 97.1 fL (80-100); MEAN CORPUSCULAR HEMOGLOBIN 32.8 pg (25-34); MEAN CORPUSCULAR HGB CONC 33.8 g/dl (32-36); MEAN PLATELET VOLUME 10.8 fL (7.4-10.4); PLATELET COUNT 180 K/uL (130-400); RED CELL DISTRIBUTION WIDTH CV 13.9 % (11.5-14.5); RED CELL DISTRIBUTION WIDTH SD 47.7 fL (36.4-46.3); WHITE BLOOD COUNT 6.59 K/uL (4.8-10.8)
[2017-11-02 06:45] LABS: INR 1.3 (0.9-1.1)
[2017-11-02 06:51] LABS: PTT PATIENT 76.6 SECONDS (21.0-31.0)
[2017-11-02 06:56] LABS: CALCIUM 9.4 mg/dl (8.5-10.1)
[2017-11-02] MEDS: HEPARIN 25,000 UNIT/500ML D5W 500 ML IV SCH ×2 (07:11→18:47)
[2017-11-02 07:44] VITALS: BP 127/81; PULSE 74; TEMP 36.5; O2SAT 93
[2017-11-02] MEDS ORDERED: INSULIN GLARGINE SOLOSTAR 100 UNITS/ML 3 ML PEN SC SCH ×2 (08:00→22:30)
[2017-11-02] MEDS: PANTOprazole SOD 40 MG TAB PO SCH (08:18)
[2017-11-02] MEDS: OLMESARTAN MEDOXOMIL 20 MG TAB PO SCH (08:18)
[2017-11-02] MEDS: INSULIN ASPART 100 UNITS/ML 3 ML PEN SC SCH ×4 (08:26→20:38)
[2017-11-02] MEDS ORDERED: INSULIN GLARGINE SOLOSTAR 100 UNITS/ML 3 ML PEN SC ONE (13:00)
--- NOTE | 2017-11-02 13:21 | Pharmacy Progress Note ---
Pharmacy Glycemic Short Note 2 Date of Service Nov 02, 2017. OUTPATIENT ANTIDIABETIC REGIMEN: * Janumet XR 2gm PO daily * A1c = 9.6% Item Value Date Time Bedside Glucose 208 mg/dl H 11/01/17 0748 Bedside Glucose 244 mg/dl H 11/01/17 1131 Bedside Glucose 255 mg/dl H 11/01/17 1703 Bedside Glucose 191 mg/dl H 11/01/17 2029 Bedside Glucose 183 mg/dl H 11/02/17 0757 Bedside Glucose 126 mg/dl H 11/02/17 1139 ASSESSMENT: Please refer to previous progress notes for background info, in short: * Mr. Ruffin received 160 units of insulin yesterday. Patient remains on prednisone 15 mg every other day. * BSGs improved improved following 20% increase in daily insulin dose yesterday. * Fasting BSG of 183 mg/dL is trending downward but remains above goal range. Not seeing the full effect of Lantus dose change at this time. * Post-prandial BSGs improved today. Novolog CF/CR was tightened this am to 12/22. This provided patient with too much breakfast coverage (BSG decreased from 183 to 126 mg/dL) therefore CR loosened back to 4 with lunch. PLAN FOR INPATIENT GLYCEMIC CONTROL: * Continue to hold outpatient oral diabetes medications * Basal insulin * Lantus 25-38 units SQ BID * 25 units for BSG less than 120 * 30 units for BSG 120-180 * 38 units for BSG greater than 180 * Bolus insulin * NovoLog per scale ACHS * Goal Range: Low 110 mg/dL - High 140 mg/dL * Correction Factor: 10 mg/dL/unit * Nutritional / Prandial insulin per carb ratio of 1 unit per 4 grams CHO consumed PLAN FOR DISCHARGE: * Pt's glycemic goals have not been met with outpt regimen of Janumet. 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 Other options with a low incidence of hypoglycemia are as follows: * empagliflozin 10 mg PO once daily in the morning (SGLT2 inhibitor) * exenatide extended release (Bydureon) 2 mg SQ once every 7 days or dulaglutide (Trulicity) 0.75 mg SQ once every 7 days --> if either exenatide or dulaglutide is selected, Janumet should be discontinued and replaced with metformin ER 2000 mg qPM * selection can be based on patient preference and insurance coverage * Isaac reported to CDE that he is agreeable to diet/lifestyle modifications. He was able to decrease his A1c from 9.3 to 8% in recent past with diet/ lifestyle modifications alone.
[2017-11-02 14:14] LABS: PTT PATIENT 52.2 SECONDS (21.0-31.0)
[2017-11-02 15:43] VITALS: BP 98/60; PULSE 83; TEMP 36.4; O2SAT 90
[2017-11-02] MEDS ORDERED: WARFARIN SOD 10 MG TAB PO SCH (16:00)
--- NOTE | 2017-11-02 20:50 | Progress Note ---
Medicine Progress Note Date & Time of Visit: Nov 02, 2017 at 12:00 . Subjective CC: Follow-up visit for pulmonary embolism, DVT, and other problems. HPI: Doing well. No chest pain or shortness of breath. No abnormal bruising or bleeding. ROS: General- no fever, no chills Resp- as noted above in HPI Cardiac- as noted above in HPI GI- no nausea, no vomiting, no diarrhea, no constipation - no dysuria, no difficulty voiding . Objective Last 8 Hrs Date Time Temp Pulse Resp B/P (MAP) Pulse Ox O2 Delivery O2 Flow Rate FiO2 11/02/17 16:39 Room Air 11/02/17 15:43 36.4 83 18 98/60 (73) 90 Room Air Physical Exam: General- no distress Lungs- clear to auscultation; no respiratory distress Cardiovascular- RRR; no gallop appreciated; no JVD; trace right pretibial edema Abdomen- + bowel sounds, soft, nontender Extremities- no cyanosis; no calf tenderness Neuro- alert, oriented Skin- warm & dry . Laboratory Results: Last 24 Hours Test 11/02/17 05:44 11/02/17 07:57 11/02/17 11:39 11/02/17 13:44 White Blood Count 6.59 K/uL Red Blood Count 4.11 M/uL Hemoglobin 13.5 g/dL Hematocrit 39.9 % Mean Corpuscular Volume 97.1 fL Mean Corpuscular Hemoglobin 32.8 pg Mean Corpuscular Hemoglobin Concent 33.8 g/dl RDW Standard Deviation 47.7 fL RDW Coefficient of Variation 13.9 % Platelet Count 180 K/uL Mean Platelet Volume 10.8 fL Prothrombin Time 14.0 SECONDS Prothromb Time International Ratio 1.3 Activated Partial Thromboplast Time 76.6 SECONDS 52.2 SECONDS Partial Thromboplastin Ratio 2.9 2.0 Sodium Level 138 mmol/L Potassium Level 4.0 mmol/L Chloride Level 101 mmol/L Carbon Dioxide Level 28 mmol/L Anion Gap 9.0 mmol/L Blood Urea Nitrogen 13 mg/dl Creatinine 1.00 mg/dl Est Creatinine Clear Calc Drug Dose 112.6 ml/min Estimated GFR () 93.1 Estimated GFR (Non- 80.3 BUN/Creatinine Ratio 13.2 Random Glucose 197 mg/dl Calcium Level 9.4 mg/dl Bedside Glucose 183 mg/dl 126 mg/dl Test 11/02/17 16:39 11/02/17 20:31 Bedside Glucose 164 mg/dl 207 mg/dl Assessment & Plan DVT / PE (present on admission) Probably provoked VTE (s/p repair Achilles tendon). Symptoms improved. Oxygenating well. INR still subtherapeutic at 1.3. Not a good candidate for DOAC's due to weight > 120 kg. Requiring relatively high doses of warfarin-20 mg ordered for today. Continue IV heparin until INR therapeutic for 2 days. (Pt not interested in enoxaparin.) HYPERTENSION Continue olmesartan. DM TYPE 2 Hemoglobin A1c = 9.6. Oral agents held. Pharmacy consulted for glycemic control. Receiving Lantus and NovoLog per protocol. Fasting blood sugar today = 183. RA Continue prednisone and methotrexate. VTE PROPHYLAXIS Anticoagulants for acute VTE as noted above. DISPOSITION Expected discharge to home. . Current Inpatient Medications: Current Inpatient Medications Medications (Trade) Dose Ordered Sig/Gissell Route Start Time Stop Time Status Last Admin Dose Admin Glucose (Glucose 40% Gel) 15-30 GRAMS 15 GRAMS... UD PRN PO 10/25/17 20:45 11/24/17 20:44 Glucose (Glucose Chew Tab) 4-8 Tablets 4 Tabl... UD PRN PO 10/25/17 20:45 11/24/17 20:44 Dextrose (Dextrose 50% 50ML Syringe) 25-50ML 25ML FOR ... UD PRN IV 10/25/17 20:45 11/24/17 20:44 Glucagon (Glucagon Inj) 1 mg UD PRN IM 10/25/17 20:45 11/24/17 20:44 Carbohydrates (Carbohydrates For Hypoglycemia) 15-30 GRAMS 15 grams if BSG 54-69... UD PRN PO 10/25/17 20:45 11/24/17 20:44 Oxycodone/ Acetaminophen (Percocet 5-325mg Tab) 2 tab Q4H PRN PO 10/25/17 20:45 11/08/17 20:44 11/02/17 20:35 2 TAB Acetaminophen (Tylenol Tab) 650 mg Q4H PRN PO 10/25/17 22:30 11/24/17 22:29 Lorazepam (Ativan Inj) 0.5 mg Q4H PRN IV 10/25/17 22:30 11/24/17 22:29 Nitroglycerin (Nitrostat Tab) 0.4 mg UD PRN SL 10/25/17 22:30 11/24/17 22:29 Insulin Aspart (novoLOG ASPART) SLIDING SCALE If C... ACHS SC 10/26/17 06:45 11/25/17 06:44 11/02/17 20:38 7 UNITS Prochlorperazine Edisylate 5 mg/ Syringe 5 ml @ 5 mls/min Q6H PRN IV 10/25/17 22:30 11/24/17 22:29 Morphine Sulfate (MoRPHine SULFATE INJ) 4 mg Q3H PRN IV 10/25/17 22:30 11/08/17 22:29 Folic Acid (Folvite Tab) 1 mg QAM PO 10/26/17 09:00 11/25/17 08:59 11/02/17 08:18 1 MG Acetaminophen/ Hydrocodone Bitart ([place] 5/325 Tab) pain not relieved by tylenol Q4H PRN PO 10/25/17 22:30 11/08/17 22:29 11/01/17 09:08 2 TAB Methotrexate (Methotrexate Tab) 20 mg We@0900 PO 10/27/17 09:00 11/26/17 08:59 10/27/17 07:46 20 MG Olmesartan (Benicar Tab) 20 mg QAM PO 10/26/17 09:00 11/25/17 08:59 11/02/17 08:18 20 MG Prednisone (PredniSONE TAB) 15 mg Q2D@0900 PO 10/26/17 09:00 11/25/17 08:59 11/01/17 07:52 15 MG Pantoprazole Sodium (Protonix Tab) 40 mg QAM PO 10/26/17 09:00 11/25/17 08:59 11/02/17 08:18 40 MG Heparin Sodium/ Dextrose 500 ml @ 44 mls/hr [id number] IV 10/25/17 22:30 11/24/17 22:29 11/02/17 18:47 44 MLS/HR Miscellaneous Information (Consult Glycemic Management Pharmacy) 1 ea UD PRN N/A 10/26/17 12:45 11/25/17 12:44 Warfarin Sodium (Coumadin Tab) 20 mg DAILY@16 PO 11/02/17 16:00 12/02/17 15:59 11/02/17 16:27 20 MG Insulin Glargine (Lantus Solostar Pen) SEE PROTOCOL BID SC 11/02/17 22:30 12/02/17 22:29 11/02/17 20:38 38 UNITS
[2017-11-02 22:52] VITALS: BP 113/75; PULSE 83; TEMP 36.5; O2SAT 95
[2017-11-03] MEDS: OXYCODONE/ACETAMINOPHEN 5-325 TAB PO PRN ×4 (03:17→21:29)
[2017-11-03] MEDS: HEPARIN 25,000 UNIT/500ML D5W 500 ML IV SCH ×2 (06:19→17:21)
[2017-11-03 06:35] LABS: INR 1.7 (0.9-1.1)
[2017-11-03 06:42] LABS: PTT PATIENT 68.9 SECONDS (21.0-31.0)
[2017-11-03 07:20] VITALS: BP 114/78; PULSE 82; TEMP 36.6; O2SAT 97
[2017-11-03] MEDS: OLMESARTAN MEDOXOMIL 20 MG TAB PO SCH (08:25)
[2017-11-03] MEDS: PANTOprazole SOD 40 MG TAB PO SCH (08:25)
[2017-11-03] MEDS: INSULIN ASPART 100 UNITS/ML 3 ML PEN SC SCH ×4 (08:29→21:15)
[2017-11-03] MEDS: METHOTREXATE 2.5 MG TAB PO SCH (08:30)
[2017-11-03] MEDS: INSULIN GLARGINE SOLOSTAR 100 UNITS/ML 3 ML PEN SC SCH ×2 (08:30→21:16)
--- NOTE | 2017-11-03 08:47 | Progress Note ---
Medicine Progress Note Date & Time of Visit: Nov 03, 2017 at 07:40 . Subjective CC: Follow-up visit for pulmonary embolism, DVT, and other problems. HPI: Doing well. No chest pain or shortness of breath. No abnormal bruising or bleeding. ROS: General- no fever, no chills Resp- as noted above in HPI Cardiac- as noted above in HPI GI- no nausea, no vomiting, no melena or hematochezia - no hematuria . Objective Last 8 Hrs Date Time Temp Pulse Resp B/P (MAP) Pulse Ox O2 Delivery O2 Flow Rate FiO2 11/03/17 07:20 36.6 82 18 114/78 (90) 97 Room Air Physical Exam: General- no distress Lungs- clear to auscultation; no respiratory distress Cardiovascular- RRR; no gallop appreciated; no JVD; trace right pretibial edema Abdomen- + bowel sounds, soft, nontender Extremities- no cyanosis; no calf tenderness Neuro- alert, oriented Skin- warm & dry . Laboratory Results: Last 24 Hours Test 11/02/17 11:39 11/02/17 13:44 11/02/17 16:39 11/02/17 20:31 Bedside Glucose 126 mg/dl 164 mg/dl 207 mg/dl Activated Partial Thromboplast Time 52.2 SECONDS Partial Thromboplastin Ratio 2.0 Test 11/03/17 05:33 11/03/17 07:35 Prothrombin Time 17.9 SECONDS Prothromb Time International Ratio 1.7 Activated Partial Thromboplast Time 68.9 SECONDS Partial Thromboplastin Ratio 2.7 Bedside Glucose 144 mg/dl Assessment & Plan DVT / PE (present on admission) Probably provoked VTE (s/p repair Achilles tendon several weeks prior to presentation). Symptoms improved. Oxygenating well. Day # 9 IV heparin. Patient not interested in SQ injections with enoxaparin. Not a good candidate for DOAC's due to weight > 120 kg. Requiring relatively high doses of warfarin-20 mg ordered for today. INR still subtherapeutic at 1.7 despite receiving high doses of warfarin. Warfarin 20 mg today. Continue IV heparin until INR therapeutic for 2 days. HYPERTENSION Continue olmesartan. DM TYPE 2 Hemoglobin A1c = 9.6. Oral agents held. Pharmacy consulted for glycemic control. Receiving Lantus and NovoLog per protocol. Fasting blood sugar today = 144. RA Continue prednisone and methotrexate. VTE PROPHYLAXIS Anticoagulants for acute VTE as noted above. DISPOSITION Expected discharge to home. Follow-up with his PCP in [place]. . Current Inpatient Medications: Current Inpatient Medications Medications (Trade) Dose Ordered Sig/Gissell Route Start Time Stop Time Status Last Admin Dose Admin Glucose (Glucose 40% Gel) 15-30 GRAMS 15 GRAMS... UD PRN PO 10/25/17 20:45 11/24/17 20:44 Glucose (Glucose Chew Tab) 4-8 Tablets 4 Tabl... UD PRN PO 10/25/17 20:45 11/24/17 20:44 Dextrose (Dextrose 50% 50ML Syringe) 25-50ML 25ML FOR ... UD PRN IV 10/25/17 20:45 11/24/17 20:44 Glucagon (Glucagon Inj) 1 mg UD PRN IM 10/25/17 20:45 11/24/17 20:44 Carbohydrates (Carbohydrates For Hypoglycemia) 15-30 GRAMS 15 grams if BSG 54-69... UD PRN PO 10/25/17 20:45 11/24/17 20:44 Oxycodone/ Acetaminophen (Percocet 5-325mg Tab) 2 tab Q4H PRN PO 10/25/17 20:45 11/08/17 20:44 11/03/17 03:17 2 TAB Acetaminophen (Tylenol Tab) 650 mg Q4H PRN PO 10/25/17 22:30 11/24/17 22:29 Lorazepam (Ativan Inj) 0.5 mg Q4H PRN IV 10/25/17 22:30 11/24/17 22:29 Nitroglycerin (Nitrostat Tab) 0.4 mg UD PRN SL 10/25/17 22:30 11/24/17 22:29 Insulin Aspart (novoLOG ASPART) SLIDING SCALE If C... ACHS SC 10/26/17 06:45 11/25/17 06:44 11/03/17 08:29 22 UNITS Prochlorperazine Edisylate 5 mg/ Syringe 5 ml @ 5 mls/min Q6H PRN IV 10/25/17 22:30 11/24/17 22:29 Morphine Sulfate (MoRPHine SULFATE INJ) 4 mg Q3H PRN IV 10/25/17 22:30 11/08/17 22:29 Folic Acid (Folvite Tab) 1 mg QAM PO 10/26/17 09:00 11/25/17 08:59 11/03/17 08:25 1 MG Acetaminophen/ Hydrocodone Bitart ([place] 5/325 Tab) pain not relieved by tylenol Q4H PRN PO 10/25/17 22:30 11/08/17 22:29 11/01/17 09:08 2 TAB Methotrexate (Methotrexate Tab) 20 mg We@0900 PO 10/27/17 09:00 11/26/17 08:59 11/03/17 08:30 20 MG Olmesartan (Benicar Tab) 20 mg QAM PO 10/26/17 09:00 11/25/17 08:59 11/03/17 08:25 20 MG Prednisone (PredniSONE TAB) 15 mg Q2D@0900 PO 10/26/17 09:00 11/25/17 08:59 11/03/17 08:26 15 MG Pantoprazole Sodium (Protonix Tab) 40 mg QAM PO 10/26/17 09:00 11/25/17 08:59 11/03/17 08:25 40 MG Heparin Sodium/ Dextrose 500 ml @ 44 mls/hr [id number] IV 10/25/17 22:30 11/24/17 22:29 11/03/17 06:19 44 MLS/HR Miscellaneous Information (Consult Glycemic Management Pharmacy) 1 ea UD PRN N/A 10/26/17 12:45 11/25/17 12:44 Warfarin Sodium (Coumadin Tab) 20 mg DAILY@16 PO 11/02/17 16:00 12/02/17 15:59 11/02/17 16:27 20 MG Insulin Glargine (Lantus Solostar Pen) 35 units BID SC 11/03/17 08:00 12/03/17 07:59 11/03/17 08:30 35 UNITS
--- NOTE | 2017-11-03 09:02 | Pharmacy Progress Note ---
Pharmacy Glycemic Short Note 2 Date of Service Nov 03, 2017. OUTPATIENT ANTIDIABETIC REGIMEN: * Janumet XR 2gm PO daily * A1c = 9.6% Test 11/02/17 11:39 11/02/17 16:39 11/02/17 20:31 11/03/17 07:35 Bedside Glucose 126 mg/dl (70-99) 164 mg/dl (70-99) 207 mg/dl (70-99) 144 mg/dl (70-99) ASSESSMENT: 11/03/17 * Mr. Ruffin received 147 units of insulin yesterday. No change to causes of insulin resistance and remains on prednisone 15 mg every other day. * Fasting BSG = 144; improving daily. I'm afraid that the higher dose of 38 units BID (not yet at steady state) will be too much so will back off slightly * Postprandial BSGs were subsequently elevated after CR was loosened; therefore , will tighten back to 3 * Estimating TDD ~ 150-160 units 11/02/17 Please refer to previous progress notes for background info, in short: * Mr. Ruffin received 160 units of insulin yesterday. Patient remains on prednisone 15 mg every other day. * BSGs improved improved following 20% increase in daily insulin dose yesterday. * Fasting BSG of 183 mg/dL is trending downward but remains above goal range. Not seeing the full effect of Lantus dose change at this time. * Post-prandial BSGs improved today. Novolog CF/CR was tightened this am to 10/ 3. This provided patient with too much breakfast coverage (BSG decreased from 183 to 126 mg/dL) therefore CR loosened back to 4 with lunch. PLAN FOR INPATIENT GLYCEMIC CONTROL: * Continue to hold outpatient oral diabetes medications * Basal insulin - decrease ~10% * Lantus 35 units BID * Bolus insulin - tighten prandial coverage * NovoLog per scale ACHS * Goal Range: Low 110 mg/dL - High 140 mg/dL * Correction Factor: 10 mg/dL/unit * Nutritional / Prandial insulin per carb ratio of 1 unit per 3 grams CHO consumed PLAN FOR DISCHARGE: From 11/01/17: * Pt's glycemic goals have not been met with outpt regimen of Janumet. 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 Other options with a low incidence of hypoglycemia are as follows: * empagliflozin 10 mg PO once daily in the morning (SGLT2 inhibitor) * exenatide extended release (Bydureon) 2 mg SQ once every 7 days or dulaglutide (Trulicity) 0.75 mg SQ once every 7 days --> if either exenatide or dulaglutide is selected, Janumet should be discontinued and replaced with metformin ER 2000 mg qPM * selection can be based on patient preference and insurance coverage * Isaac reported to CDE that he is agreeable to diet/lifestyle modifications. He was able to decrease his A1c from 9.3 to 8% in recent past with diet/ lifestyle modifications alone.
[2017-11-03] MEDS ORDERED: WARFARIN SOD 10 MG TAB PO ONE (10:00)
[2017-11-03 15:41] VITALS: BP 104/57; PULSE 90; TEMP 36.5; O2SAT 90
[2017-11-03 21:41] LABS: INR 2.2 (0.9-1.1)
[2017-11-04] MEDS: HEPARIN 25,000 UNIT/500ML D5W 500 ML IV SCH ×2 (04:52→06:31)
[2017-11-04 05:57] LABS: HEMATOCRIT 41.3 % (42-52); HEMOGLOBIN 13.9 g/dL (14.0-18.0); MEAN CELL VOLUME 97.9 fL (80-100); MEAN CORPUSCULAR HEMOGLOBIN 32.9 pg (25-34); MEAN CORPUSCULAR HGB CONC 33.7 g/dl (32-36); MEAN PLATELET VOLUME 10.6 fL (7.4-10.4); PLATELET COUNT 186 K/uL (130-400); RED CELL DISTRIBUTION WIDTH SD 48.6 fL (36.4-46.3); WHITE BLOOD COUNT 7.03 K/uL (4.8-10.8)
[2017-11-04 06:19] LABS: INR 2.3 (0.9-1.1)
[2017-11-04 06:22] LABS: PTT PATIENT 80.5 SECONDS (21.0-31.0)
[2017-11-04 07:29] VITALS: BP 115/88; PULSE 82; TEMP 36.5; O2SAT 90
[2017-11-04] MEDS ORDERED: OXYMETAZOLINE HCL 0.05% NA SPR 15 ML BTL ONE (08:30)
[2017-11-04] MEDS: OLMESARTAN MEDOXOMIL 20 MG TAB PO SCH (08:33)
[2017-11-04] MEDS: PANTOprazole SOD 40 MG TAB PO SCH (08:33)
[2017-11-04] MEDS: INSULIN GLARGINE SOLOSTAR 100 UNITS/ML 3 ML PEN SC SCH (08:36)
[2017-11-04] MEDS: INSULIN ASPART 100 UNITS/ML 3 ML PEN SC SCH ×2 (08:36→12:22)
[2017-11-04] MEDS: OXYCODONE/ACETAMINOPHEN 5-325 TAB PO PRN ×2 (09:43→14:49)
--- NOTE | 2017-11-04 14:51 | Progress Note ---
Medicine Progress Note Date & Time of Visit: Nov 04, 2017 at 14:51 . Subjective Feels well. No chest pain, cough, dyspnea. Intermittent discomfort right lower extremity. Transient epistaxis this morning while still on IV heparin, resolved. Ambulating. Would like to go home today. . Objective Last 8 Hrs Date Time Temp Pulse Resp B/P (MAP) Pulse Ox O2 Delivery O2 Flow Rate FiO2 11/04/17 09:55 Room Air 11/04/17 07:29 36.5 82 20 115/88 (97) 90 Room Air Physical Exam: General- no distress Lungs- clear to auscultation; no respiratory distress Cardiovascular- RRR; no gallop appreciated; no JVD; trace right pretibial and pedal edema Abdomen- + bowel sounds, soft, nontender Extremities- no cyanosis; no calf tenderness Neuro- alert, oriented Skin- warm & dry . Laboratory Results: Last 24 Hours Test 11/03/17 16:26 11/03/17 21:04 11/03/17 21:17 11/04/17 05:31 Bedside Glucose 212 mg/dl 142 mg/dl Prothrombin Time 22.7 SECONDS 23.9 SECONDS Prothromb Time International Ratio 2.2 2.3 White Blood Count 7.03 K/uL Red Blood Count 4.22 M/uL Hemoglobin 13.9 g/dL Hematocrit 41.3 % Mean Corpuscular Volume 97.9 fL Mean Corpuscular Hemoglobin 32.9 pg Mean Corpuscular Hemoglobin Concent 33.7 g/dl RDW Standard Deviation 48.6 fL RDW Coefficient of Variation 14.0 % Platelet Count 186 K/uL Mean Platelet Volume 10.6 fL Activated Partial Thromboplast Time 80.5 SECONDS Partial Thromboplastin Ratio 3.1 Test 11/04/17 07:44 11/04/17 11:36 Bedside Glucose 143 mg/dl 136 mg/dl Assessment & Plan DVT / PE (present on admission) Underwent repair of right Achilles tendon on 09/15/17. About 1 week prior to admission he developed pain and swelling in his right lower extremity. Venous duplex of right lower extremity performed as an outpatient prior to admission demonstrated extensive DVT proximally and distally. Refer to ED for evaluation. Reported some dyspnea. CTA demonstrated saddle embolism as well as multiple bilateral pulmonary emboli. Echocardiogram did not show any RV strain. Hemodynamically stable and had only intermittent mild hypoxia. Initially managed with IV heparin; patient was not interested in transitioning to SQ enoxaparin. Not a good candidate for DOAC's due to weight > 120 kg. Shock that warfarin was most appropriate oral therapy. Required relatively high doses of warfarin to achieve therapeutic INR. Received total of 10 days of IV heparin overlapping with 2 days of therapeutic INR on warfarin. Discharge on warfarin 15 mg daily. Patient to have INR rechecked within a few days of discharge. This was the patient's first episode of VTE and was provoked by recent Achilles tendon repair. Large clot burden with extensive DVT of right lower extremity, bilateral pulmonary emboli, saddle embolism. 6 months of anticoagulation would be appropriate. F/U venous duplex RLE for new baseline may be worthwhile. We will HYPERTENSION Continue olmesartan. DM TYPE 2 Hemoglobin A1c = 9.6. Oral agents held. Pharmacy consulted for glycemic control. Receiving Lantus and NovoLog per protocol during hospital stay. Fasting blood sugar today = 143. Patient prefers not to use insulin at home. Discharge on his usual regimen of the sitagliptin and metformin. Patient to discuss ongoing management with PCP. RA Continue prednisone and methotrexate. Try to taper prednisone to lowest effective dose because of suboptimal glycemic control. Try to avoid NSAID's if possible due to hypoglycemia. VTE PROPHYLAXIS Anticoagulants for acute VTE as noted above. DISPOSITION Discharge to home. Follow-up with his PCP in [place]: Nghia Elizabeth MD [address] [place] [address], [address] [place] [address] Fx: [phone] . Current Inpatient Medications: Current Inpatient Medications Medications (Trade) Dose Ordered Sig/[facility] Route Start Time Stop Time Status Last Admin Dose Admin Glucose (Glucose 40% Gel) 15-30 GRAMS 15 GRAMS... UD PRN PO 10/25/17 20:45 11/24/17 20:44 Glucose (Glucose Chew Tab) 4-8 Tablets 4 Tabl... UD PRN PO 10/25/17 20:45 11/24/17 20:44 Dextrose (Dextrose 50% 50ML Syringe) 25-50ML 25ML FOR ... UD PRN IV 10/25/17 20:45 11/24/17 20:44 Glucagon (Glucagon Inj) 1 mg UD PRN IM 10/25/17 20:45 11/24/17 20:44 Carbohydrates (Carbohydrates For Hypoglycemia) 15-30 GRAMS 15 grams if BSG 54-69... UD PRN PO 10/25/17 20:45 11/24/17 20:44 Oxycodone/ Acetaminophen (Percocet 5-325mg Tab) 2 tab Q4H PRN PO 10/25/17 20:45 11/08/17 20:44 11/04/17 14:49 2 TAB Acetaminophen (Tylenol Tab) 650 mg Q4H PRN PO 10/25/17 22:30 11/24/17 22:29 Lorazepam (Ativan Inj) 0.5 mg Q4H PRN IV 10/25/17 22:30 11/24/17 22:29 Nitroglycerin (Nitrostat Tab) 0.4 mg UD PRN SL 10/25/17 22:30 11/24/17 22:29 Insulin Aspart (novoLOG ASPART) SLIDING SCALE If C... ACHS SC 10/26/17 06:45 11/25/17 06:44 11/04/17 12:22 25 UNITS Prochlorperazine Edisylate 5 mg/ Syringe 5 ml @ 5 mls/min Q6H PRN IV 10/25/17 22:30 11/24/17 22:29 Morphine Sulfate (MoRPHine SULFATE INJ) 4 mg Q3H PRN IV 10/25/17 22:30 11/08/17 22:29 Folic Acid (Folvite Tab) 1 mg QAM PO 10/26/17 09:00 11/25/17 08:59 11/04/17 08:33 1 MG Acetaminophen/ Hydrocodone Bitart ([place] 5/325 Tab) pain not relieved by tylenol Q4H PRN PO 10/25/17 22:30 11/08/17 22:29 11/01/17 09:08 2 TAB Methotrexate (Methotrexate Tab) 20 mg We@0900 PO 10/27/17 09:00 11/26/17 08:59 11/03/17 08:30 20 MG Olmesartan (Benicar Tab) 20 mg QAM PO 10/26/17 09:00 11/25/17 08:59 11/04/17 08:33 20 MG Prednisone (PredniSONE TAB) 15 mg Q2D@0900 PO 10/26/17 09:00 11/25/17 08:59 11/03/17 08:26 15 MG Pantoprazole Sodium (Protonix Tab) 40 mg QAM PO 10/26/17 09:00 11/25/17 08:59 11/04/17 08:33 40 MG Miscellaneous Information (Consult Glycemic Management Pharmacy) 1 ea UD PRN N/A 10/26/17 12:45 11/25/17 12:44 Insulin Glargine (Lantus Solostar Pen) 35 units BID SC 11/03/17 08:00 12/03/17 07:59 11/04/17 08:36 35 UNITS
[2017-11-04] MEDS ORDERED: WARFARIN SOD 5 MG TAB PO ONE (15:00)
[2017-11-04] MEDS ORDERED: WARF-246 PO (15:13)
--- NOTE | 2017-11-04 15:24 | Discharge Instructions ---
Discharge Instructions Date of Service Nov 04, 2017. Admission Reason for Admission: Pulmonary Embolism Discharge Discharge Diagnosis / Problem: (1) Pulmonary embolism (2) DVT (deep venous thrombosis) VTE Date & Time Date of VTE Diagnosis: Oct 25, 2017 Time of VTE Diagnosis: 18:18 Discharge Goals Goal(s): Decrease discomfort, Improve disease control Activity Recommendations Activity Limitations: as noted below Lifting Limitations: gradually increase as tolerated Shower/Bathe: no limitations Driving or Machine Use: resume 3 days after discharge . Instructions / Follow-Up Instructions / Follow-Up APPOINTMENTS: Dr. Elizabeth Please call his office for an appointment. OTHER INSTRUCTIONS: You had large blood clots in your right leg and lungs. You should take warfarin (Coumadin) to keep new blood clots from forming. Initial dose will be 15 mg daily. You received a dose at [facility] 11/04 before you were discharged. Next dose will be on Sunday 11/05. Dose will vary. You should have your INR checked to monitor your warfarin dosing within a few days. Dr. Elizabeth will arrange labwork for you. You should probably take the warfarin (Coumadin) for 6 months. Wear elastic support stockings as needed for swelling or discomfort of your leg. Best to avoid anti-inflammatory medications like ibuprofen (Advil and Motrin), naproxen (Aleve), celecoxib (Celebrex) and others while taking warfarin. The combination can cause bleeding ulcers. If you must take celecoxib (Celebrex) for your arthritis, make certain that you take omeprazole (Prilosec) with it. Your blood sugars were running high. Hemoglobin A1C was 9.6. Continue Janumet as before. Do your best to be active, eat wisely, and lose weight. Keep prednisone dose for your arthritis at the lowest effective dose. Discuss other medication options with Dr. Elizabeth. Use Afrin long-acting nose spray as needed for nose bleeds: 4 sprays in the affected nostril twice a day, no more that 3 days in a row. If you have severe or prolonged nosebleed, your blood may be too thin and you should have your INR checked as soon as possible. Seek medical attention if you have: * temperature above 101 * chest pain or trouble breathing * abdominal pain, nausea, vomiting * diarrhea, dark stools or bloody stools * any unanswered questions or concerns Call 911 if symptoms are severe. Call if you have any questions or problems. My cell # is [phone]. You can also reach a [facility] hospitalist on duty at [facility] 24 hours a day by calling [phone]. Please take good care of yourself. Morgan Smith Medication Instructions: * Warfarin is a medicine prescribed to prevent blood clots * Warfarin will thin your blood and help prevent new clots * Take your medications exactly as directed * Never skip a dose. Never take a double dose. If you miss a dose, take it as soon as you remember * It is important for your doctor to monitor your prothrombin time (PT). This is a lab test * Keep your appointment for lab tests Risk of Adverse Drug Reactions and Interactions: * Warfarin increases your risk of bleeding * The food you eat and other medications you take can affect how Warfarin works in your body * Ask your doctor about daily aspirin therapy * It is very important to talk with your doctor about all of the other medicines , antibiotics, vitamins or herbal products that you are taking * All of your medication must be approved by your doctor, including new medicines, as well as medicines you have taken before you started taking Warfarin Diet: * In order for Warfarin to work properly, it is important to keep your intake of Vitamin K as consistent as possible * You should avoid any sudden change in Vitamin K intake * Report any significant changes in your diet or weight to your doctor Call your Primary Care doctor if you experience any of the following: * Swelling or Pain in your leg * Sudden, continuous pain deep in a muscle * Pain that worsens when you are active or when you stand still for a long time * Chest Pain * Sudden Shortness of Breath * Rapid or pounding heart beat * Fainting * Dizziness * Cough with blood or bloody sputum * Sweating more than normal * Bruises * Heavy or uncontrolled bleeding * Blood in your urine, stool or vomit * Black or tarry stools Caring for Your Self at Home: * Avoid sitting, standing or lying down for long periods without moving your legs and feet * When traveling by car, stop to get out and move around at least once every 3 hours * On long airplane, train or bus rides, get up and move around when possible * If you can't get up, wiggle your toes and tighten your calves to keep your blood moving Follow Up: It is important for you to keep your follow up appointments with your medical provider. . Current Hospital Diet Patient's current hospital diet: Diabetes Type 2 Diet, AHA Diet (Heart Healthy) Discharge Diet Recommended Diet: AHA Diet (Heart Healthy), Diabetes Type 2 Diet Procedures Procedures Performed: CT angiogram of chest echocardiogram Pending Studies Studies pending at discharge: no Laboratory Results Hemoglobin A1c Test 10/25/17 18:35 Range/Units Estimated Average Glucose 229 mg/dl Hemoglobin A1c 9.6 H 4.5-5.6 % Medical Emergencies . Who to Call and When: Medical Emergencies: If at any time you feel your situation is an emergency, please call 911 immediately. . Non-Emergent Contact Non-Emergency issues call your: Primary Care Provider, Hospital Doctor . . "Provider Documentation" section prepared by Morgan Smith. . VTE Core Measure Reason no anticoag overlap I/P: Treatment provided - N/A Reason no anticoag overlap @DC: Treatment not indicated [place] Drug Monitoring Program Search Results: patient reviewed within database, no issues identified
[2017-11-04 15:55] VITALS: BP 115/88; PULSE 82; TEMP 36.5; O2SAT 90
--- NOTE | 2017-11-05 08:30 | Discharge Summary ---
Discharge Summary Date of Service Nov 05, 2017. Discharge Summary Admission Date: Oct 25, 2017 at 21:23 Discharge Date: Nov 04, 2017 Discharge Disposition: Home Principal Diagnosis: pulmonary emboli- saddle embolism + multiple bilateral pulmonary emboli deep venous thrombosis right lower extremity involving proximal veins . Secondary Diagnoses/Problems: Chronic and Resolved Medical Problems: (1) DM type 2 (diabetes mellitus, type 2) Status: Chronic (2) GERD (gastroesophageal reflux disease) Status: Chronic (3) Hypertension Status: Chronic (4) Rheumatoid arthritis Status: Chronic Surgical Problems: (1) H/O Achilles tendon repair Status: Chronic (2) History of total left knee replacement Status: Chronic (3) History of total right knee replacement Status: Chronic (4) S/P tonsillectomy Status: Chronic . Procedures: CTA chest echo IV meds . Consultations: Critical Care Medicine . Medication Reconciliation New Medications: Warfarin Sodium (Warfarin Sodium) 5 Mg Tab 0 PO UD, #100 TAB 5 Refills Dose will probably vary. Initial dose is 15 mg (3 pills) daily. Continued Medications: Acetaminophen (Tylenol) 500 Mg Tab 1000 MG PO Q8 PRN for Pain, TAB Desoximetasone (Topicort) 0.25 % Oin 1 APPLN TOP DIRECTED, #15 GM Folic Acid (Folvite) 1 Mg Tab 1 MG PO QAM, TAB Methotrexate Sodium (Methotrexate) 2.5 Mg Tab 8 TAB PO WK, 2 Refills TAKES ON WEDNESDAYS. Olmesartan Medoxomil (Olmesartan Medoxomil) 20 Mg Tab 1 TAB PO QAM Omeprazole (Omeprazole Dr) 40 Mg Cap 40 MG PO QAM Oxycodone/Acetaminophen 5MG/325MG (Oxycodone/Acetaminophen 5MG/325MG) 1 Tab Tab 1-2 TABLETS PO Q4H PRN for Pain, TAB Prednisone (Prednisone) 5 Mg Tab 15 MG PO Q2D, TAB Sitagliptin-Metformin Hcl (Janumet Xr) 1 Tab Tab 2000 MG PO DAILY Discontinued Medications: Celecoxib (CeleBREX) 200 Mg Cap 200 MG PO DIRECTED PRN for RHEUMATOID PAIN, CAP Hydrocodone/Acetaminophen 5MG/325MG ([place] 5MG/325MG) Tab 1-2 TABLETS PO Q4-6HRS PRN for Pain, TAB PRN PAIN Admission Information HPI (per Admitting provider): 62-year-old male who was referred to the ED by his orthopedic physician for evaluation of DVT in the right leg. Patient underwent right Achilles tendon repair on 09/[address] King in [place]. Patient reports increasing swelling to his right leg over the past 1 week. He denies pain in the right leg. Outpatient ultrasound showed a significant DVT in the right lower extremity. Patient was then referred to the ER for further evaluation. Patient reports mild shortness of breath. Denies chest pain. No lightheadedness, dizziness, diaphoresis, syncopal events. He denies abdominal pain, nausea, vomiting, diarrhea. No fevers or chills. He denies any urinary symptoms. Outpatient ultrasound showed extensive acute deep venous thrombosis involving the right thigh and lower leg. CTA chest in the ED showed extensive bilateral acute pulmonary emboli including a saddle pulmonary embolus involving the origins of the right and left main pulmonary arteries. Patient is hemodynamically stable and saturating well on room air. He was started on a heparin drip in the ED. . Physical Exam (per Admitting): General Appearance: WD/WN, no apparent distress Head: normocephalic, atraumatic Eyes: normal inspection, EOMI, sclerae normal ENT: hearing grossly normal, + pertinent finding (Mucous membranes moist) Neck: supple, no JVD, trachea midline Respiratory/Chest: no respiratory distress, + decreased breath sounds ( Bilateral bases) Cardiovascular: regular rate, rhythm, normal peripheral pulses, + pertinent finding (+3 edema RLE) Abdomen/GI: normal bowel sounds, non tender, soft, no organomegaly Extremities/Musculoskelatal: no calf tenderness, normal capillary refill, + pertinent finding (Surgical incision noted to right Achilles tendon healing well without surrounding erythema or drainage; +3 edema to the RLE extending from the thigh down the leg) Neurologic/Psych: no motor/sensory deficits, alert, normal mood/affect, oriented x 3 Skin: normal color, warm/dry Hospital Course DVT / PE (present on admission) Underwent repair of right Achilles tendon on 09/15/17. About 1 week prior to admission he developed pain and swelling in his right lower extremity. Venous duplex of right lower extremity performed as an outpatient prior to admission demonstrated extensive DVT proximally and distally. Refer to ED for evaluation. Reported some dyspnea. CTA demonstrated saddle embolism as well as multiple bilateral pulmonary emboli. Echocardiogram did not show any RV strain. Hemodynamically stable and had only intermittent mild hypoxia. Initially managed with IV heparin; patient was not interested in transitioning to SQ enoxaparin. Not a good candidate for DOAC's due to weight > 120 kg. [place] that warfarin was most appropriate oral therapy. Required relatively high doses of warfarin to achieve therapeutic INR. Received total of 10 days of IV heparin overlapping with 2 days of therapeutic INR on warfarin. Discharge on warfarin 15 mg daily. Patient to have INR rechecked within a few days of discharge. This was the patient's first episode of VTE and was provoked by recent Achilles tendon repair. Large clot burden with extensive DVT of right lower extremity, bilateral pulmonary emboli, saddle embolism. 6 months of anticoagulation would be appropriate. F/U venous duplex RLE for new baseline may be worthwhile. We will HYPERTENSION Continue olmesartan. DM TYPE 2 Hemoglobin A1c = 9.6. Oral agents held. Pharmacy consulted for glycemic control. Receiving Lantus and NovoLog per protocol during hospital stay. Fasting blood sugar today = 143. Patient prefers not to use insulin at home. Discharge on his usual regimen of the sitagliptin and metformin. Patient to discuss ongoing management with PCP. RA Continue prednisone and methotrexate. Try to taper prednisone to lowest effective dose because of suboptimal glycemic control. Try to avoid NSAID's if possible due to hypoglycemia. VTE PROPHYLAXIS Anticoagulants for acute VTE as noted above. DISPOSITION Discharge to home. Follow-up with his PCP in [place]: Nghia Elizabeth MD [address] [place] [address], [address] [place] [address] Fx: [phone] . Total time spent on discharge = 40 min. This includes examination of the patient, discharge planning, medication reconciliation, and communication with other providers. . Discharge Instructions Discharge Instructions Date of Service Nov 04, 2017. Admission Reason for Admission: Pulmonary Embolism Discharge Discharge Diagnosis / Problem: (1) Pulmonary embolism (2) DVT (deep venous thrombosis) VTE Date & Time Date of VTE Diagnosis: Oct 25, 2017 Time of VTE Diagnosis: 18:18 Discharge Goals Goal(s): Decrease discomfort, Improve disease control Activity Recommendations Activity Limitations: as noted below Lifting Limitations: gradually increase as tolerated Shower/Bathe: no limitations Driving or Machine Use: resume 3 days after discharge . Instructions / Follow-Up Instructions / Follow-Up APPOINTMENTS: Dr. Elizabeth Please call his office for an appointment. OTHER INSTRUCTIONS: You had large blood clots in your right leg and lungs. You should take warfarin (Coumadin) to keep new blood clots from forming. Initial dose will be 15 mg daily. You received a dose at [facility] 11/04 before you were discharged. Next dose will be on Sunday 11/05. Dose will vary. You should have your INR checked to monitor your warfarin dosing within a few days. Dr. Elizabeth will arrange labwork for you. You should probably take the warfarin (Coumadin) for 6 months. Wear elastic support stockings as needed for swelling or discomfort of your leg. Best to avoid anti-inflammatory medications like ibuprofen (Advil and Motrin), naproxen (Aleve), celecoxib (Celebrex) and others while taking warfarin. The combination can cause bleeding ulcers. If you must take celecoxib (Celebrex) for your arthritis, make certain that you take omeprazole (Prilosec) with it. Your blood sugars were running high. Hemoglobin A1C was 9.6. Continue Janumet as before. Do your best to be active, eat wisely, and lose weight. Keep prednisone dose for your arthritis at the lowest effective dose. Discuss other medication options with Dr. Elizabeth. Use Afrin long-acting nose spray as needed for nose bleeds: 4 sprays in the affected nostril twice a day, no more that 3 days in a row. If you have severe or prolonged nosebleed, your blood may be too thin and you should have your INR checked as soon as possible. Seek medical attention if you have: * temperature above 101 * chest pain or trouble breathing * abdominal pain, nausea, vomiting * diarrhea, dark stools or bloody stools * any unanswered questions or concerns Call 911 if symptoms are severe. Call if you have any questions or problems. My cell # is [phone]. You can also reach a [facility] hospitalist on duty at [facility] 24 hours a day by calling [phone]. Please take good care of yourself. Morgan Smith Medication Instructions: * Warfarin is a medicine prescribed to prevent blood clots * Warfarin will thin your blood and help prevent new clots * Take your medications exactly as directed * Never skip a dose. Never take a double dose. If you miss a dose, take it as soon as you remember * It is important for your doctor to monitor your prothrombin time (PT). This is a lab test * Keep your appointment for lab tests Risk of Adverse Drug Reactions and Interactions: * Warfarin increases your risk of bleeding * The food you eat and other medications you take can affect how Warfarin works in your body * Ask your doctor about daily aspirin therapy * It is very important to talk with your doctor about all of the other medicines , antibiotics, vitamins or herbal products that you are taking * All of your medication must be approved by your doctor, including new medicines, as well as medicines you have taken before you started taking Warfarin Diet: * In order for Warfarin to work properly, it is important to keep your intake of Vitamin K as consistent as possible * You should avoid any sudden change in Vitamin K intake * Report any significant changes in your diet or weight to your doctor Call your Primary Care doctor if you experience any of the following: * Swelling or Pain in your leg * Sudden, continuous pain deep in a muscle * Pain that worsens when you are active or when you stand still for a long time * Chest Pain * Sudden Shortness of Breath * Rapid or pounding heart beat * Fainting * Dizziness * Cough with blood or bloody sputum * Sweating more than normal * Bruises * Heavy or uncontrolled bleeding * Blood in your urine, stool or vomit * Black or tarry stools Caring for Your Self at Home: * Avoid sitting, standing or lying down for long periods without moving your legs and feet * When traveling by car, stop to get out and move around at least once every 3 hours * On long airplane, train or bus rides, get up and move around when possible * If you can't get up, wiggle your toes and tighten your calves to keep your blood moving Follow Up: It is important for you to keep your follow up appointments with your medical provider. . Current Hospital Diet Patient's current hospital diet: Diabetes Type 2 Diet, AHA Diet (Heart Healthy) Discharge Diet Recommended Diet: AHA Diet (Heart Healthy), Diabetes Type 2 Diet Procedures Procedures Performed: CT angiogram of chest echocardiogram Pending Studies Studies pending at discharge: no Laboratory Results Hemoglobin A1c Test 10/25/17 18:35 Range/Units Estimated Average Glucose 229 mg/dl Hemoglobin A1c 9.6 H 4.5-5.6 % Medical Emergencies . Who to Call and When: Medical Emergencies: If at any time you feel your situation is an emergency, please call 911 immediately. . Non-Emergent Contact Non-Emergency issues call your: Primary Care Provider, Hospital Doctor . . "Provider Documentation" section prepared by Morgan Smith. . VTE Core Measure Reason no anticoag overlap I/P: Treatment provided - N/A Reason no anticoag overlap @DC: Treatment not indicated [place] Drug Monitoring Program Search Results: patient reviewed within database, no issues identified . Additional Copies To Aravind King M.D. Nghia Elizabeth MD
== END 2017-11-04 16:28 | disposition home health service (06) | DRG 299 ==
LOC: C.EDB 16:01 → C.MSICU 21:23 → ENRESERV 21:27 → C.2E 10-26 17:05 → EDBEDREQ 10-30 16:20 → ENRESERV 10-30 19:09 → C.4E 10-30 19:57
PROVIDERS: ADMIT Hospitalist; ATTEND Hospitalist
DX: I82.4Y1 Acute embolism and thrombosis of unspecified deep veins of right proximal lower extremity (principal); I26.92 Saddle embolus of pulmonary artery without acute cor pulmonale; Z98.890 Other specified postprocedural states; E11.9 Type 2 diabetes mellitus without complications; I10 Essential (primary) hypertension; M06.9 Rheumatoid arthritis, unspecified; E66.01 Morbid (severe) obesity due to excess calories; Z68.38 Body mass index [BMI] 38.0-38.9, adult; Z87.891 Personal history of nicotine dependence; Z79.52 Long term (current) use of systemic steroids; Z79.84 Long term (current) use of oral hypoglycemic drugs; Z79.899 Other long term (current) drug therapy

== ENCOUNTER → 2017-10-25 | Outpatient (CLI) | payer OTHER, BC ==
[~2017-10-25] MED LIST changes: +ACET-1256 PO; +ACET-24 PO; -ACETAMINOPHEN 500 MG TAB PO SCH; +ASPI-320 PO; -CEFAZOLIN 3000 MG/65 ML D5W 65 ML IV SCH; +CLB/200 PO; -CeleBREX 200 MG CAP PO SCH; +DESO0.258 TOP; -DEXAMETHASONE 4 MG TAB PO SCH; -FAMOTIDINE 20 MG TAB PO SCH; -FOLI1TAB7 PO; +FOLI1TAB8 PO; -HYDR-4079 PO; +HYDR-5688 PO; -LACTATED RINGER'S 1000ML 1,000 ML IV SCH; -LACTATED RINGER'S 500 ML IV SCH; -METOCLOPRAMIDE HCL 10 MG TAB PO SCH; +OMEP-334 PO; +OXYC-643 PO; +OXYSR10 PO; -ROPIVACAINE 5MG/ML 30 ML 150 MG, BUPIVACAINE/EPINEPHR 0.5% MPF 30 ML, KETOROLAC TROMETH... INFIL SCH; +RXC5 PO; +SITA1TAB21 PO; -TRAM-10 PO
--- NOTE | 2017-10-25 15:17 | DIAGNOSTIC IMAGING REPORT ---
VENOUS DOPP LOWER EXT UNILAT CLINICAL HISTORY: RIGHT LEG PAIN AND SWELLING pain. Edema. TECHNIQUE: Venous Doppler COMPARISON STUDY: None FINDINGS: Extensive acute deep venous thrombosis throughout the right leg. This includes the bulk of the deep calf veins and extends to the proximal femoral vein. Compressibility is incomplete. Augmentation characteristics are compromised. IMPRESSION: Extensive acute deep venous thrombosis involving the right thigh and lower leg. The above report was generated using voice recognition software. It may contain grammatical, syntax or spelling errors. Electronically signed by: Adan Franco M.D. 10/25/2017 3:15 PM Dictated Date/Time: 10/25/2017 3:14 PM
== END | disposition home or self-care (01) ==
LOC: C.ULTRBC 14:44
PROVIDERS: ATTEND Specialist/Technologist Athletic Trainer
DX: Z98.890 Other specified postprocedural states (principal); I82.4Y1 Acute embolism and thrombosis of unspecified deep veins of right proximal lower extremity; I82.4Z1 Acute embolism and thrombosis of unspecified deep veins of right distal lower extremity